=== PATIENT | female | born 1935 | race Caucasian/White ===

== ENCOUNTER 2017-03-06 11:00 | Inpatient (IN) ==
[2017-03-06] MEDS ORDERED: *HR* HYDROmorphone (PF) 1 MG/ML SYRINGE IVP ONE ×2 (11:15→15:28)
[2017-03-06] MEDS ORDERED: *HR* Morphine 2 MG/ML SYRINGE IVP ONE (11:20)
[2017-03-06] MEDS ORDERED: Ondansetron 4 MG/2 ML VIAL IVP ONE (11:20)
--- NOTE | 2017-03-06 11:21 | Emergency Department Note ---
START Narrative - START START: I examined this patient and my medical decision-making was reviewed with the FRONT MAKER/PA/Advanced Practice Nurse/Resident Physician. I agree with the documented findings, disposition and treatment plan as described except to the extent set forth below. Evaluate for right hip fracture.
--- NOTE | 2017-03-06 11:22 | Emergency Department Note ---
Disposition Clinical Impression: Hip fracture Qualifiers: Encounter type: initial encounter Fracture type: closed Laterality: right Qualified Code(s): S72.001A - Fracture of unspecified part of neck of right femur, initial encounter for closed fracture Disposition: Admitted As Inpatient Condition: Good Referrals: Tuyet Glynn QUARTZ CUTTER [Primary Care Provider] - Forms: ED Satisfaction Letter Time of Disposition: 15:34 Fall HPI - General Chief Complaint: ED Fall Stated Complaint: fall Time Seen by Provider: 03/06/17 11:01 Source: patient Mode of arrival: EMS Limitations: physical limitation Nursing Notes Reviewed: Yes Vital Signs Reviewed: Yes - History of Present Illness HPI Narrative: 81 yo with fall, landed on Right hip 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 immediately called EMS and brought to ER. Since fall pt has been unable to move her R LE secondary to sever pain with any movement of leg. Pt admits to baseline SOB from COPD and is on 3L O2 24/7 at home. denies LOC, syncope, lightheaded,dizziness or any symptoms prior to or after fall. Denies CP , numbness/tingling. Pt Subjective Complaint: fall Onset (ago): minute(s) Fall From: standing Fall Witnessed: no Place Fall Occurred: home Loss of Consciousness: none Prolonged Down Time?: no Symptoms Prior to Fall: none Context: tripped/slipped Location of injury: hip Severity: severe Severity scale (1-10): 9 Quality: sharp, aching - Related Data Home Medications Medication Instructions Recorded Confirmed Levalbuterol [Xopenex] 4 puff IH Q4H PRN 07/28/15 03/06/17 Ipratropium/Albuterol Neb [Duoneb] 3 ml IH Q6HR PRN 03/06/17 03/06/17 LORazepam [Ativan] 1 mg PO BID PRN 03/06/17 03/06/17 Lidocaine Patch [Lidoderm 5% patch] 1 each TP DAILY 03/06/17 03/06/17 Omeprazole [PriLOSEC] 20 mg PO DAILY 03/06/17 03/06/17 Previous Rx's Medication Instructions Recorded Budesonide/Formoterol 160/4.5 2 puff IH BIDR #1 hfa.aer.ad 07/31/15 [Symbicort] Allergies Allergy/AdvReac Type Severity Reaction Status Date / Time Penicillins AdvReac Hives Verified 07/28/15 10:51 All systems ED: reviewed and negative except as stated. Constitutional: Denies: fever, chills, weakness, weight change Eyes: Denies: eye pain, eye discharge, vision change ENT ED: Denies: ear pain, throat pain, dental pain, hearing loss, epistaxis, congestion, dysphagia Cardiovascular: Denies: chest pain, palpitations, dyspnea on exertion, edema, syncope Respiratory: Denies: cough, dyspnea, wheezes, hemoptysis, stridor Gastrointestinal: Denies: abdominal pain, nausea, vomiting, diarrhea, constipation, hematemesis, melena, hematochezia Genitourinary: Denies: dysuria, frequency, hematuria, discharge Musculoskeletal: Denies: back pain, neck pain, arthralgia, myalgia Integumentary: Denies: rash, abrasion, lesions Neurological: Denies: headache, weakness, numbness, paresthesias, confusion, abnormal gait, vertigo Psychiatric: Denies: anxiety, depression, suicidal thoughts, homicidal thoughts , auditory hallucinations, visual hallucinations Endocrine: Denies: fatigue Hematological/Lymphatic: Denies: easy bleeding, easy bruising Allergic/Immunologic: Denies: facial swelling, urticaria Fall PMH - Past Medical History Medical history: Reports: COPD Surgical history: Reports: non-contributory, cholecystectomy, other ( rectovaginal fistula surgery, "stomach surgery", TL, finger amputation.) Psychiatric history: Reports: anxiety, depression 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: non-contributory - Social History Smoking Status: Current every day smoker Alcohol use: Reports: none Drug use: Reports: none Physical Exam - General Limitations: no limitations General appearance: alert, in no apparent distress - Head Head exam: atraumatic, normocephalic, normal inspection - Eye Eye exam: Present: normal appearance, PERRL, EOMI - ENT ENT exam: normal exam, normal oropharynx, mucous membranes moist - Neck Neck exam: Present: normal inspection, full ROM, trachea midline - Chest Chest inspection: Present: normal inspection, symmetric chest wall rise - Respiratory Respiratory exam: Present: wheezes (end expiratory b/l), prolonged expiratory phase, other (course breathsounds, diminshed throughout) - Cardiovascular Cardiovascular exam: Present: regular rate, normal rhythm, normal heart sounds, +S1, +S2 - Abdominal Exam Abdominal exam: Present: soft, Non-Tender. Absent: tenderness, distention, guarding, rebound, rigidity - Rectal Exam Rectal exam: Present: deferred - Extremities Exam Extremities exam: Present: tenderness, normal capillary refill. Absent: pedal edema, calf tenderness - Expanded Lower Extremity Exam Hip/Pelvis exam: Present: tenderness, deformity, internal rotation (of R LE). Absent: laceration, ecchymosis Upper leg exam: Present: tenderness, dislocation Knee exam: Present: normal inspection, full ROM Lower leg exam: Present: normal inspection, full ROM. Absent: tenderness, swelling Ankle exam: Present: normal inspection, full ROM Foot/toe exam: Present: normal inspection, full ROM Neurovascular/Tendon exam: Present: normal capillary refill, normal fine/light touch. Absent: pulse deficit, extremity cold to touch, pallor Gait: not tested/not observed - Back Exam Back exam: Present: normal inspection, full ROM. Absent: tenderness - Neurological Exam Neurological exam: Present: alert, oriented X3, CN II-XII intact - Psychiatric Psychiatric exam: Present: normal affect, normal mood - Skin Skin exam: Present: warm, dry, intact, normal color Course - Reevaluation(s) Reevaluation #1: Pt started to become more drowsy and less responsive gave 1 of narcan pt hypotensive 80s/40s started second IV fluid boluses in both IVs CTA chest Time: 18:14 Vital Signs Temperature 98.9 F 03/06/17 11:01 Pulse Rate 94 03/06/17 11:01 Respiratory Rate 24 03/06/17 11:01 Blood Pressure 154/78 03/06/17 11:01 O2 Sat by Pulse Oximetry 95 03/06/17 11:01 Temperature 98.9 F 03/06/17 11:01 Pulse Rate 110 03/06/17 17:30 Respiratory Rate 20 03/06/17 17:30 Blood Pressure 112/59 03/06/17 17:30 O2 Sat by Pulse Oximetry 95 03/06/17 17:30 Oxygen Delivery Oxygen Delivery Simple Mask Fall - Differential Diagnosis Likely: syncope, traumatic injury, arrhythmia - Medical Records Medical records reviewed: Yes I reviewed the patient's medical records. - Lab Data Lab results reviewed: Yes I reviewed the patient's lab results. Result diagrams: 03/06/17 12:22 03/06/17 12:22 Lab Results 03/06/17 03/06/17 03/06/17 Range/Units 11:39 12:22 12:22 WBC (4.3-11.1) K/mcL RBC (3.82-4.97) M/mcL Hgb (11.5-15.4) g/dL Hct (35.3-44.9) % MCV (83.0-100.0) fL MCH (28.0-33.3) pg MCHC (31.6-35.5) g/dL RDW (11.5-14.5) % Plt Count (140-400) K/mcL MPV (9.4-12.4) fL PT 10.7 (9.4-12.1) Seconds INR 1.0 APTT 27.6 (26.0-36.0) Seconds Sodium 140 (136-145) mEq/L Potassium 4.3 (3.5-4.5) mEq/L Chloride 101 (98-109) mEq/L Carbon Dioxide 31 H (19-29) mEq/L BUN 14 (7-20) mg/dL Creatinine 0.55 L (0.57-1.11) mg/dL Est GFR ( Amer) > 60 (> 60) Est GFR (Non-Af Amer) > 60 (> 60) BUN/Creatinine Ratio 25 (6-26) Glucose 113 H (70-99) mg/dL Calculated Osmolality 291 (280-300) Calcium 9.4 (8.6-10.8) mg/dL Urine Color Yellow (Yellow) Urine Clarity Clear (Clear) Urine pH 6.0 (5.0-8.0) pH Units Ur Specific [place] 1.020 (1.010-1.025) Urine Protein Negative (Neg-Trace) mg/dL Urine Glucose (UA) Normal (Normal) mg/dL Urine Ketones Negative (Negative) mg/dL Urine Blood Negative (Negative) Urine Nitrite Negative (Negative) Urine Bilirubin Negative (Negative) Urine Urobilinogen Normal (Normal) mg/dL Ur Leukocyte Esterase Negative (Negative) Ur Culture Indicated? NO (NO) 03/06/17 Range/Units 12:22 WBC 11.8 H (4.3-11.1) K/mcL RBC 4.21 (3.82-4.97) M/mcL Hgb 12.3 (11.5-15.4) g/dL Hct 40.7 (35.3-44.9) % MCV 96.7 (83.0-100.0) fL MCH 29.2 (28.0-33.3) pg MCHC 30.2 L (31.6-35.5) g/dL RDW 14.2 (11.5-14.5) % Plt Count 207 (140-400) K/mcL MPV 11.5 (9.4-12.4) fL PT (9.4-12.1) Seconds INR APTT (26.0-36.0) Seconds Sodium (136-145) mEq/L Potassium (3.5-4.5) mEq/L Chloride (98-109) mEq/L Carbon Dioxide (19-29) mEq/L BUN (7-20) mg/dL Creatinine (0.57-1.11) mg/dL Est GFR ( Amer) (> 60) Est GFR (Non-Af Amer) (> 60) BUN/Creatinine Ratio (6-26) Glucose (70-99) mg/dL Calculated Osmolality (280-300) Calcium (8.6-10.8) mg/dL Urine Color (Yellow) Urine Clarity (Clear) Urine pH (5.0-8.0) pH Units Ur Specific [place] (1.010-1.025) Urine Protein (Neg-Trace) mg/dL Urine Glucose (UA) (Normal) mg/dL Urine Ketones (Negative) mg/dL Urine Blood (Negative) Urine Nitrite (Negative) Urine Bilirubin (Negative) Urine Urobilinogen (Normal) mg/dL Ur Leukocyte Esterase (Negative) Ur Culture Indicated? (NO) - Radiology Data Radiology results reviewed: Yes I reviewed the patient's radiology results. - Core Measures AMI Core Measures Followed: Yes Critical Care Time Critical Care Time: No Attestation Statement - Attestation Attestation: I examined this patient and my medical decision-making was reviewed with the FLAKING ROLL OPERATOR/PA/Advanced Practice Nurse/Resident Physician. I agree with the documented findings, disposition and treatment plan as described except to the extent set forth below.
[2017-03-06 11:56] LABS: Bilirubin,Urine Negative (Negative); Blood,Urine Negative (Negative); Clarity,Urine Clear (Clear); Color,Urine Yellow (Yellow); Glucose,Urine (UA) Normal (Normal); Ketones,Urine Negative (Negative); Leukocyte Esterase,Urine Negative (Negative); Nitrite,Urine Negative (Negative); Protein,Urine Negative (Neg-Trace); Urobilinogen,Urine Normal (Normal)
[2017-03-06 12:34] LABS: Prothrombin Time 10.7 Seconds (9.4-12.1)
[2017-03-06 12:37] LABS: Activated Partial Thrombo Time 27.6 Seconds (26.0-36.0)
[2017-03-06 12:42] LABS: BUN/Creatinine Ratio 25 (6-26); Blood Urea Nitrogen 14 mg/dL (7-20); Calcium 9.4 mg/dL (8.6-10.8); Carbon Dioxide 31 mEq/L (19-29); Chloride 101 mEq/L (98-109); Glucose 113 mg/dL (70-99); Osmolality,Calculated 291 (280-300); Potassium 4.3 mEq/L (3.5-4.5); Sodium 140 mEq/L (136-145); eGFR For African Americans > 60 (> 60); eGFR For Non-African Americans > 60 (> 60)
[2017-03-06 14:39] LABS: Hematocrit 40.7 % (35.3-44.9); Hemoglobin 12.3 g/dL (11.5-15.4); Mean Corpuscular HGB Conc 30.2 g/dL (31.6-35.5); Mean Corpuscular Hemoglobin 29.2 pg (28.0-33.3); Mean Corpuscular Volume 96.7 fL (83.0-100.0); Mean Platelet Volume 11.5 fL (9.4-12.4); Platelet Count 207 K/mcL (140-400); Red Blood Count 4.21 M/mcL (3.82-4.97); Red Cell Distribution Width 14.2 % (11.5-14.5)
[2017-03-06] MEDS ORDERED: Ipratropium/Albuterol Neb 3 ML IH ONE (16:51)
--- NOTE | 2017-03-06 17:27 | Internal Med History&Physical ---
Date of Encounter: 03/06/17 Time of Encounter: 17:23 Assessment and Plan (1) Acute respiratory failure with hypoxemia Current visit: Yes Status: Acute patinet has h/ o COPD at baseline 3 l of o2. after the morphine at ED,, she became unresponsive and de sated requiring 6-7 L of o2 to maintain sats at 90 and hypotensive at 80/40s she was given narcan that improved her mental status, CTA was done to r/o PE/ fat embolus. CTA was negative. patient still requiring 8-10 l of o2, possible hypoventilation from severe pain. code status was discussed with the daughter and she says that patient wishes to be DNR/DNI arrest. needs cautious opioids administration for pain control, will continue duonebs, BP has improved. DVT prophylaxis. (2) Hip fracture Current visit: Yes Status: Acute right hip fracuture s/p fall will call ortho. will need adequate pain control. DVT prophlaxis. Qualifiers: Encounter type: initial encounter Fracture type: closed Laterality: right Qualified Code(s): S72.001A - Fracture of unspecified part of neck of right femur, initial encounter for closed fracture (3) COPD (chronic obstructive pulmonary disease) Current visit: Yes Status: Acute On 3 L of oxygen at home baseline. Reports that there was no worsening of shortness of breath at home, has chronic cough. We will continue the breathing treatments, satting 90% at 6 L, had an episode of respiratory depression after IV narcotics at ED, currently more awake and alert after narcan. titrate o2 to maintain sats 88-92%. she wishes o be DNR- arrest- DNI Qualifiers: COPD type: emphysema Emphysema type: unspecified Qualified Code(s): J43.9 - Emphysema, unspecified (4) DVT prophylaxis Current visit: No Status: Acute (5) Tobacco abuse counseling Current visit: No Status: Acute Internal Medicine - H&P: HPI Chief complaint: fall Admitted From: Home Plans for Post Hospital Care: Home History of present illness: Ms. 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 immediately called EMS and brought to ER. Since fall pt has been unable to move her R LE secondary to severe pain with any movement of leg. Pt admits to baseline SOB from COPD and is on 3L O2 24/7 at home. denies LOC, syncope, lightheaded, dizziness or any symptoms prior to or after fall. Denies CP, numbness/tingling. she was noted to be sating at high 70s on presentation which improved with oxygen. She was given IV Dilaudid with morphine at ED,it was noted that she was unresponsive and had to school superintendent narcan to bring her back, currently she is alert and awake and talking, answering appropriately but appears in mild respiratory distress, sating at 90% on 5-6 l of o2. Past Med Surg Social Fam HX - Past Medical History Medical history: COPD Psychiatric history: anxiety, depression - Past Surgical History Surgical History: non-contributory, cholecystectomy, other (rectovaginal fistula surgery, "stomach surgery", TL, finger amputation.) - Social History Smoking Status: Current every day smoker Smokeless Tobacco Status: No Alcohol use: none Drug use: none Internal Medicine - H&P: Meds Levalbuterol [Xopenex] 4 puff IH Q4H PRN 07/28/15 [History] Budesonide/Formoterol 160/4.5 [Symbicort] 2 puff IH BIDR #1 hfa.aer.ad 07/31/15 [Rx] Ipratropium/Albuterol Neb [Duoneb] 3 ml IH Q6HR PRN 03/06/17 [History] LORazepam [Ativan] 1 mg PO BID PRN 03/06/17 [History] Lidocaine Patch [Lidoderm 5% patch] 1 each TP DAILY 03/06/17 [History] Omeprazole [PriLOSEC] 20 mg PO DAILY 03/06/17 [History] Allergies Penicillins Adverse Reaction (Verified 07/28/15 10:51) Hives All Systems PM: A 10-system review of systems was performed and is negative for pertinent findings except as documented above in the HPI. - Constitutional Vitals: Temp Pulse Resp BP Pulse Ox 98.9 F 118 22 187/87 89 03/06/17 11:01 03/06/17 16:49 03/06/17 17:05 03/06/17 16:49 03/06/17 17:05 General appearance: Present: mild distress, A&O X 3 Exam: Neck supple. Chest bilateral occasional wheezing, decreased breath sounds at the bases. CVS S1-S2, no murmurs rubs or gallops. Abdomen soft, nontender, bowel sounds are present. Extremities- right hip tenderness, decreased ROm, no edema neuro- alert and awake, no focal neuro defecits. Internal Med - H&P Results - Labs CBC & Chem 7: 03/06/17 18:36 03/06/17 12:22 Labs: Short CBC 03/06/17 Range/Units 12:22 WBC 11.8 H (4.3-11.1) K/mcL Hgb 12.3 (11.5-15.4) g/dL Hct 40.7 (35.3-44.9) % Plt Count 207 (140-400) K/mcL BMP 03/06/17 12:22 Sodium 140 Potassium 4.3 Chloride 101 Carbon Dioxide 31 H BUN 14 Creatinine 0.55 L Glucose 113 H Calcium 9.4 Urine 03/06/17 Range/Units 11:39 Urine Color Yellow (Yellow) Urine Clarity Clear (Clear) Urine pH 6.0 (5.0-8.0) pH Units Ur Specific [place] 1.020 (1.010-1.025) Urine Protein Negative (Neg-Trace) mg/dL Urine Glucose (UA) Normal (Normal) mg/dL - Impressions ITS Impressions Hip X-Ray 03/06/17 11:15 IMPRESSION: 1. Normal pelvic alignment with no displaced or angulated fracture. 2. Findings suspicious for a possible nondisplaced right intertrochanteric fracture. If needed, this could be further evaluated with MRI of the right hip. D/ / 03/06/2017 12:23:21 Casey Carvajal MD / zeina Interpreting Provider: Casey Carvajal MD Chest X-Ray 03/06/17 11:20 IMPRESSION: Stable chronic right lung base opacities. No acute abnormality. D/ / 03/06/2017 12:23:54 Casey Carvajal MD / [email or web address] Interpreting Provider: Casey Carvajal MD Femur X-Ray 03/06/17 12:28 IMPRESSION: No acute femoral fracture or dislocation. Mild degenerative changes at the hip joint and knee joint. D/ / Mc Crow MD / Mc Crow MD Interpreting Provider: Mc Crow MD Hip CT 03/06/17 12:28 IMPRESSION: 1. Acute and nondisplaced basicervical right femoral neck fracture with extension into the greater trochanter. D/ / Raheel Fisher MD / Raheel Fisher MD Interpreting Provider: Raheel Fisher MD
[2017-03-06] MEDS ORDERED: Naloxone 0.4 MG/ML INJ IVP PRN (17:32)
[2017-03-06] MEDS ORDERED: *HR* Morphine 2 MG/ML SYRINGE IVP PRN (17:33)
[2017-03-06] MEDS ORDERED: 0.9 % Sodium Chloride 1,000 ML IVC ONE (18:03)
[2017-03-06 18:46] LABS: Hematocrit 40.7 % (35.3-44.9); Hemoglobin 12.1 g/dL (11.5-15.4); Mean Corpuscular HGB Conc 29.7 g/dL (31.6-35.5); Mean Corpuscular Hemoglobin 29.4 pg (28.0-33.3); Mean Corpuscular Volume 98.8 fL (83.0-100.0); Mean Platelet Volume 10.8 fL (9.4-12.4); Platelet Count 165 K/mcL (140-400); Red Blood Count 4.12 M/mcL (3.82-4.97); Red Cell Distribution Width 13.9 % (11.5-14.5)
[2017-03-06] MEDS: Ipratropium/Albuterol Neb 3 ML IH SCH ×2 (19:56→23:37)
[2017-03-06] MEDS: Budesonide/Formoterol 160/4.5 MDI IH SCH (19:56)
[2017-03-06] MEDS ORDERED: Ondansetron 4 MG/2 ML VIAL IVP PRN (20:01)
[2017-03-06] MEDS: *HR* HYDROcodone/Acet 5/325 mg TABLET PO PRN (20:02)
[2017-03-06] MEDS ORDERED: Ondansetron 4 MG/2 ML VIAL ONE (20:12)
[2017-03-06] MEDS ORDERED: *HR* Heparin 5,000 UNIT/ML VIAL IVP ONE (21:31)
[2017-03-06] MEDS ORDERED: *HR* Heparin 5,000 UNIT/ML VIAL IVP PRN ×2 (21:31)
[2017-03-06] MEDS ORDERED: Aspirin 325 MG TABLET PO ONE (21:32)
--- NOTE | 2017-03-06 21:35 | Event Note ---
Date of Encounter: 03/06/17 Time of Encounter: 21:33 noted that the trop elevated to 0.22. this may be demand ischemia from the hypotension and hypoxia at ED after the narcotics. patient denies any chest pain, will do EKG now, will trend tropx3, order ECHO. start heparin drip until ACS has been ruled out. asa 325 stat.
[2017-03-06] MEDS: 0.9 % Sodium Chloride 1,000 ML IVC SCH (22:29)
[2017-03-06] MEDS: Heparin 25,000 UNIT/500 ML D5W 25,000 UNIT/500 ML MLS IVC SCH (22:46)
[2017-03-07 03:44] LABS: Basophils % 0.2 %; Hematocrit 41.3 % (35.3-44.9); Hemoglobin 12.3 g/dL (11.5-15.4); Immature Granulocytes % 0.5 % (0-4); Lymphocytes # 0.5 K/mcL (0.6-4.6); Mean Corpuscular HGB Conc 29.8 g/dL (31.6-35.5); Mean Corpuscular Hemoglobin 29.8 pg (28.0-33.3); Mean Platelet Volume 10.9 fL (9.4-12.4); Monocytes % 5.6 %; Neutrophils # 16.5 K/mcL (1.6-8.9); Platelet Count 209 K/mcL (140-400); Red Blood Count 4.13 M/mcL (3.82-4.97); Red Cell Distribution Width 13.8 % (11.5-14.5); Segmented Neutrophils % 90.7 %
[2017-03-07] MEDS: Ipratropium/Albuterol Neb 3 ML IH SCH ×5 (03:49→20:40)
[2017-03-07 04:00] LABS: BUN/Creatinine Ratio 27 (6-26); Blood Urea Nitrogen 18 mg/dL (7-20); Calcium 8.8 mg/dL (8.6-10.8); Carbon Dioxide 32 mEq/L (19-29); Chloride 101 mEq/L (98-109); Glucose 138 mg/dL (70-99); Osmolality,Calculated 292 (280-300); Potassium 5.1 mEq/L (3.5-4.5); Sodium 139 mEq/L (136-145); eGFR For African Americans > 60 (> 60); eGFR For Non-African Americans > 60 (> 60)
[2017-03-07] MEDS ORDERED: *HR* Enoxaparin 30 MG/0.3 ML SYRINGE SQ SCH (06:00)
[2017-03-07 06:25] LABS: ABG Base Excess 3.7 mEq/L (-2.0 to 3.0); ABG HCO3 35.1 mEQ/L (21-27); ABG Oxygen Saturation 84 % (95-98); ABG PO2 61 mmHg (85-104); ABG TCO2 37.9 mEq/L (20-26)
[2017-03-07 06:29] LABS: Blood Gas FiO2 50 %
[2017-03-07 06:31] LABS: ABG PCO2 92 mmHg (35-45); ABG PH 7.19 pH Units (7.32-7.45)
[2017-03-07] MEDS: Budesonide/Formoterol 160/4.5 MDI IH SCH ×2 (07:31→20:40)
--- NOTE | 2017-03-07 09:10 | Pulmonology Consult Note ---
<Alistair Bajwa - Last Filed: 03/07/17 10:19> Date of Encounter: 03/07/17 Time of Encounter: 08:00 Assessment and Plan (1) Acute respiratory failure with hypoxia and hypercapnia Current Visit: Yes Status: Acute History of COPD with requirement of home oxygen of 3L. Acute failure secondary to decreased respiratory drive with morphine administration. Improved since episode of unresponsiveness in the ED with increased oxygen requirement and narcan administration. CT angio: No PE or acute aortic disease. Interstitial thickening with small bilateral effusions and lower lobe atalectasis. ABG demonstrated: pH 7.19 pCO2 92 pO2 61 HCO3 35.1 this morning. The patient has clinically improved since this morning and is now saturating well on high flow oxygen via nasal cannula. Duo-nebs ZAKIYA Q4hr. Continue home symbicort. Continue oxygen supplementation as needed. (2) COPD (chronic obstructive pulmonary disease) Current Visit: Yes Status: Acute The patient continues to smoke at home. Reports no interest in quitting as she says she is 81 years old and does not believe she will be able to have any improvement at this time in her life. See full plan above. Qualifiers: COPD type: emphysema Emphysema type: unspecified Qualified Code(s): J43.9 - Emphysema, unspecified (3) Elevated troponin Current Visit: Yes Status: Acute Troponins 0.22 > 0.40 > 0.38 Cardiology consulted. The patient is on a heparin drip currently. Will continue heparin drip until seen by cardiology. Denies symptoms of chest pain or palpitations. Continue to trend troponins. No ST elevations on EKG. (4) Tobacco abuse Current Visit: Yes Status: Acute (5) DVT prophylaxis Current Visit: No Status: Acute The patient is currently on a Heparin drip. (6) Hip fracture Current Visit: Yes Status: Acute Right hip. Orthopedics on board for evaluation. Will need to be cautious with pain medications as the patient had an episode of unresponsiveness in the ER when given morphine 4mg. Qualifiers: Encounter type: initial encounter Fracture type: closed Laterality: right Qualified Code(s): S72.001A - Fracture of unspecified part of neck of right femur, initial encounter for closed fracture History of Present Illness Consult date: 03/07/17 Requesting physician: Oliva Harper Reason for consult: COPD Chief complaint: fall, right lower extremity pain History of present illness: This is an 81 yo female with PMH of COPD GERD, and tobacco abuse who presented to the ER immediately after a fall yesterday. She states that she did not trip or get lightheaded causing her to fall. She states that she had one previous fall recently, but did not have any injuries at that time. She reports that the only reason she can think of for her fall is due to some slight weakness in her legs. The patient continues to smoke 5-6 cigarettes per day and requires 3L oxygen at home. She reports she only takes medications for GERD, anxiety, and for her COPD. Upon arrival to the ER she was found to have an elevated troponin of .22, which increased to .40 on redraw. She received a CTA, which did not demonstrate any PE or acute aortic process. She is now oxygenating well on high flow nasal cannula. She denies any skin breakage during her fall. She denies any chest pain, diaphoresis, nausea, or vomiting during the time immediately following her fall. She states she has not had any recent illness. Past Med Surg Social Fam HX - Past Medical History Medical history: COPD Psychiatric history: anxiety, depression - Past Surgical History Surgical History: non-contributory, cholecystectomy, other (rectovaginal fistula surgery, "stomach surgery", TL, finger amputation.) - Social History Smoking Status: Current every day smoker Smokeless Tobacco Status: No Alcohol use: none Drug use: none - Additional Family History Additional family history: Family history noncontributory Medications and Allergies Levalbuterol [Xopenex] 4 puff IH Q4H PRN 07/28/15 [History] Budesonide/Formoterol 160/4.5 [Symbicort] 2 puff IH BIDR #1 hfa.aer.ad 07/31/15 [Rx] Ipratropium/Albuterol Neb [Duoneb] 3 ml IH Q6HR PRN 03/06/17 [History] LORazepam [Ativan] 1 mg PO BID PRN 03/06/17 [History] Lidocaine Patch [Lidoderm 5% patch] 1 each TP DAILY 03/06/17 [History] Omeprazole [PriLOSEC] 20 mg PO DAILY 03/06/17 [History] Allergies Penicillins Adverse Reaction (Verified 09/08/15 10:51) Hives All Systems: A 10-system review of systems was performed and is negative for pertinent findings except as documented above in the HPI. - Constitutional Constitutional: weakness - EENT Nose, mouth and throat: no dizziness - Cardiovascular Cardiovascular: no chest pain - Respiratory Respiratory: dyspnea, no cough, no hemoptysis - Gastrointestinal Gastrointestinal: no nausea, no vomiting - Musculoskeletal Musculoskeletal: muscle weakness (lower extremities), no numbness Physical Examination General appearance: no acute distress Eyes: nonicteric ENT: oropharynx moist Neck: supple Effort: normal Inspection: normal Auscultation: bilateral: diminished breath sounds (at lung bases) Cardiovascular: regular rate and rhythm Gastrointestinal: normoactive bowel sounds, non-tender, non-distended Integumentary: normal (no skin breakage from fall) Extremities: no cyanosis Musculoskeletal: other (pain at right hip with movement) normal mental status, non-focal exam mood appropriate Results - Laboratory Findings CBC and BMP: 03/07/17 03:30 03/07/17 03:30 ABG ABG pH 7.19 pH Units (7.32-7.45) L* 03/07/17 06:14 ABG pCO2 92 mmHg (35-45) H* 03/07/17 06:14 ABG pO2 61 mmHg (85-104) L 03/07/17 06:14 ABG O2 Saturation 84 % (95-98) L 03/07/17 06:14 PT/INR, D-dimer PT 10.7 Seconds (9.4-12.1) 03/06/17 12:22 Abnormal lab findings: Abnormal lab results WBC 18.1 K/mcL (4.3-11.1) H 03/07/17 03:30 MCHC 29.8 g/dL (31.6-35.5) L 03/07/17 03:30 Neutrophils # 16.5 K/mcL (1.6-8.9) H 03/07/17 03:30 Lymphocytes # 0.5 K/mcL (0.6-4.6) L 03/07/17 03:30 APTT 75.8 Seconds (26.0-36.0) H D 03/07/17 03:32 ABG pH 7.19 pH Units (7.32-7.45) L* 03/07/17 06:14 ABG pCO2 92 mmHg (35-45) H* 03/07/17 06:14 ABG pO2 61 mmHg (85-104) L 03/07/17 06:14 ABG HCO3 35.1 mEQ/L (21-27) H 03/07/17 06:14 ABG Total CO2 37.9 mEq/L (20-26) H 03/07/17 06:14 ABG O2 Saturation 84 % (95-98) L 03/07/17 06:14 ABG Base Excess 3.7 mEq/L (-2.0 to 3.0) H 03/07/17 06:14 Potassium 5.1 mEq/L (3.5-4.5) H 03/07/17 03:30 Carbon Dioxide 32 mEq/L (19-29) H 03/07/17 03:30 BUN/Creatinine Ratio 27 (6-26) H 03/07/17 03:30 Glucose 138 mg/dL (70-99) H 03/07/17 03:30 POC Glucose 113 (58-89) H 03/07/17 07:52 Troponin I 0.40 ng/mL (0-0.03) H* 03/07/17 03:30 - Clinical Findings Intake & Output: Intake & Output 03/06/17 03/07/17 03/07/17 23:59 07:59 15:59 Output Total 50 / 50 Balance -50 / -50 Consult Discharge Plan - Plan Referrals: Tuyet Glynn, HAND FLATWORK FINISHER [Primary Care Provider] - - Attending Attestation I examined this patient and my medical decision-making was reviewed with the CERTIFIED PERSONAL CHEF/PA/Advanced Practice Nurse/Resident Physician. I agree with the documented findings, disposition and treatment plan as described except to the extent set forth below. <Ophelia Littlejohn M - Last Filed: 03/07/17 16:05> Date of Encounter: 03/07/17 All Systems: A 10-system review of systems was performed and is negative for pertinent findings except as documented above in the HPI. Physical Examination Vital Signs: Vital Signs, Last 4 Hours Temp Pulse Resp BP Pulse Ox 03/07/17 15:00 136 25 102/56 95 03/07/17 14:00 136 25 111/76 95 03/07/17 13:00 101 25 105/51 95 03/07/17 12:53 98.4 F Results - Laboratory Findings CBC and BMP: 03/07/17 03:30 03/07/17 03:30 ABG ABG pH 7.19 pH Units (7.32-7.45) L* 03/07/17 06:14 ABG pCO2 92 mmHg (35-45) H* 03/07/17 06:14 ABG pO2 61 mmHg (85-104) L 03/07/17 06:14 ABG O2 Saturation 84 % (95-98) L 03/07/17 06:14 PT/INR, D-dimer PT 10.7 Seconds (9.4-12.1) 03/06/17 12:22 Abnormal lab findings: Abnormal lab results WBC 18.1 K/mcL (4.3-11.1) H 03/07/17 03:30 MCHC 29.8 g/dL (31.6-35.5) L 03/07/17 03:30 Neutrophils # 16.5 K/mcL (1.6-8.9) H 03/07/17 03:30 Lymphocytes # 0.5 K/mcL (0.6-4.6) L 03/07/17 03:30 APTT 46.9 Seconds (26.0-36.0) H 03/07/17 09:23 ABG pH 7.19 pH Units (7.32-7.45) L* 03/07/17 06:14 ABG pCO2 92 mmHg (35-45) H* 03/07/17 06:14 ABG pO2 61 mmHg (85-104) L 03/07/17 06:14 ABG HCO3 35.1 mEQ/L (21-27) H 03/07/17 06:14 ABG Total CO2 37.9 mEq/L (20-26) H 03/07/17 06:14 ABG O2 Saturation 84 % (95-98) L 03/07/17 06:14 ABG Base Excess 3.7 mEq/L (-2.0 to 3.0) H 03/07/17 06:14 Potassium 5.1 mEq/L (3.5-4.5) H 03/07/17 03:30 Carbon Dioxide 32 mEq/L (19-29) H 03/07/17 03:30 BUN/Creatinine Ratio 27 (6-26) H 03/07/17 03:30 Glucose 138 mg/dL (70-99) H 03/07/17 03:30 POC Glucose 276 (58-89) H 03/07/17 12:39 Troponin I 0.38 ng/mL (0-0.03) H* 03/07/17 09:23 - Clinical Findings Intake & Output: Intake & Output 03/07/17 03/07/17 03/07/17 07:59 15:59 23:59 Intake Total 472 / 472 Output Total 200 / 200 Balance 272 / 272 - Attending Attestation Patient seen and examined. Labs, radiology, chart personally reviewed. Agree with resident's history and physical, assessment, plan with following comments: DENTAL OFFICER: Patient follows commands, Pulmonary: Acceptable oxygenation and ventilation. Reviewed CT chest and suspect there might be aspiration and also evidence of chronic lung disease to continue weaning off oxygen and use BiPAP when necessary with evidence of hypercapnia. Bronchodilators Cardiovascular: stable, I doubt ACS and cardiology consulted. GI: Nutrition per dietary and GI prophylaxis per routine Heme: DVT prophylaxis per routine ID: monitor for now. Renal; urine out put and renal funtion reviewed Endorcine: blood glucose is monitored Lines: all lines checked and no evidence of infections Skin: skin care to prevent pressure ulcers per nursing routine care Overall prognosis is poor and orthopedic consultation. Monitoring in ICU for next 24 hours..
[2017-03-07] MEDS: *HR* LORazepam 1 MG TABLET PO PRN (09:12)
--- NOTE | 2017-03-07 11:05 | Cardiology Consult Note ---
Date of Encounter: 03/07/17 Time of Encounter: 10:30 Assessment and Plan (1) Elevated troponin Current Visit: Yes Status: Acute Peak troponin 0.40 in the setting of fall, acute hypoxia, and hypotension. Likely secondary to demand ischemia. Patient denies chest pain or discomfort, no ischemic ECG changes noted. Echocardiogram ordered. Recommend conservative medical management; patient is DNRCC-DNI, desires no aggressive measures. Cardiac rehab not indicated. Continue heparin gtt for 24 hours. Will start daily asa. Will start low dose statin. Consider addition of betablocker by discharge or in the outpatient setting; BP borderline today. (2) Acute respiratory failure with hypoxia and hypercapnia Current Visit: Yes Status: Acute Pulmonology following. Hx of COPD on home oxygen therapy at home. Episode of acute respiratory failure secondary to opiate administation in ED-- patient was hypoxic and hypotensive after IV morphine. Responded to increased oxygen and narcan administration. (3) Hip fracture Current Visit: Yes Status: Acute Orthopedics consulted. Qualifiers: Encounter type: initial encounter Fracture type: closed Laterality: right Qualified Code(s): S72.001A - Fracture of unspecified part of neck of right femur, initial encounter for closed fracture Discussion w patient/family: The assessment and plan as outlined above was discussed with the patient and/or family members who expressed understanding and agreement. All questions were answered. Thank you for involving us in the care of your patient. Please call with any questions. The patient will be discussed and reviewed with Dr. Mansfield; changes to be made accordingly. History of Present Illness Consult date: 03/07/17 Requesting physician: Oliva Harper Consult reason: Elevated troponin Chief complaint: Fall History of present illness: Ms. Long is a 81 year old female with PMH significant for GERD, anxiety, and COPD (on home oxygen) who presented to the ED after a fall resulting in right hip fracture yesterday. Reports fall occurred after her legs became weak and "gave out." Reports fall weeks earlier without injury. Reports multiple falls in the past several months. She continues to smoke cigarettes. Upon arrival to ED she was given IV morphine, patient became unresponsive, hypoxic, and hypotensive; responded with IV narcan and increased oxygen supplementation. She was admitted to the ICU for further evaluation. Upon exam, she is pain free. Denies chest pain or discomfort leading up to event yesterday. No history of CAD or OH. Past Med Surg Social Fam HX - Past Medical History Attestation: Yes The following information was validated with the patient. Source: patient, old records reviewed Medical history: COPD, GERD Psychiatric history: anxiety, depression - Past Surgical History Surgical History: cholecystectomy, other (rectovaginal fistula surgery, " stomach surgery", TL, finger amputation.) - Social History Smoking Status: Current every day smoker Smokeless Tobacco Status: No Alcohol use: none Drug use: none Medications and Allergies Levalbuterol [Xopenex] 4 puff IH Q4H PRN 07/28/15 [History] Budesonide/Formoterol 160/4.5 [Symbicort] 2 puff IH BIDR #1 hfa.aer.ad 07/31/15 [Rx] Ipratropium/Albuterol Neb [Duoneb] 3 ml IH Q6HR PRN 03/06/17 [History] LORazepam [Ativan] 1 mg PO BID PRN 03/06/17 [History] Lidocaine Patch [Lidoderm 5% patch] 1 each TP DAILY 03/06/17 [History] Omeprazole [PriLOSEC] 20 mg PO DAILY 03/06/17 [History] Allergies Penicillins Adverse Reaction (Verified 07/28/15 10:51) Hives All Systems Review: A 10-system review of systems was performed and is negative for pertinent findings except as documented above in the HPI. - Cardiovascular Cardiovascular: as per HPI Physical Examination Vital Signs, Last 4 Hours Pulse Resp BP Pulse Ox 03/07/17 11:00 93 22 100/53 69 03/07/17 10:00 94 22 103/54 69 03/07/17 09:00 97 22 106/52 69 General: Conversant, No Apparent Distress HEENT: Atraumatic, Normocephaly, Mucus Membranes Moist Cardiac: Reg Rate and Rhythm, Normal S1 and S2 Lungs: Normal Breath Sounds Neuro: Alert and responsive Abdomen: Soft Skin: No rashes noted on visualized skin Musculoskeletal: No Chest Wall Tenderness Extremities: No Edema, Normal Pulses Results 03/07/17 03:30 03/07/17 03:30 Lab Results 03/07/17 03/07/17 09:23 09:23 APTT 46.9 H Troponin I 0.38 H* Active Medications Acetaminophen/Hydrocodone Bitart ([place] 5-325 Mg) 1 tab PO Q4HR PRN PRN Reason: Moderate Pain (4-6) Stop: 09/05/17 17:33 Last Admin: 03/06/17 20:02 Dose: 1 tab Albuterol/Ipratropium (Duoneb) 3 ml IH [id number] ZAKIYA PRN Reason: Protocol Stop: 09/05/17 20:01 Last Admin: 03/07/17 11:11 Dose: 3 ml Aspirin (Aspirin) 81 mg PO DAILY ZAKIYA Stop: 09/06/17 11:16 Atorvastatin Calcium (Lipitor) 20 mg PO HS ZAKIYA Stop: 09/06/17 21:01 Budesonide/Formoterol Fumarate (Symbicort) 2 puff IH BIDR ZAKIYA PRN Reason: Protocol Stop: 09/05/17 22:01 Last Admin: 03/07/17 07:31 Dose: 2 puff Heparin Sodium (Porcine) (Heparin) 2,700 unit 60 unit/kg (2700 unit) IVP Q6HR PRN PRN Reason: SEE COMMENTS Stop: 09/05/17 21:32 Heparin Sodium (Porcine) (Heparin) 1,300 unit 30 unit/kg (1300 unit) IVP Q6H PRN PRN Reason: SEE COMMENTS Stop: 09/05/17 21:32 Sodium Chloride (0.9 % Sodium Chloride) 1,000 mls @ 100 mls/hr IVC .Q10H ZAKIYA Stop: 09/05/17 17:46 Last Admin: 03/06/17 22:29 Dose: 100 mls/hr Heparin Sodium/Dextrose (Heparin 25,000 Unit/500 Ml D5w) 25,000 unit in 500 mls @ 10.728 mls/hr IVC .Q24H ZAKIYA; 12 UNIT/KG/HR PRN Reason: Protocol Stop: 09/05/17 21:46 Last Titration: 03/07/17 10:54 Dose: 14.2 unit/kg/hr, 12.7 mls/hr Lorazepam (Ativan) 1 mg PO BID PRN PRN Reason: Anxiety Stop: 09/05/17 17:36 Last Admin: 03/07/17 09:12 Dose: 1 mg Morphine Sulfate (Morphine Sulfate) 2 mg IVP Q4HR PRN PRN Reason: Severe Pain Stop: 09/05/17 20:01 Naloxone HCl (Narcan) 0.4 mg IVP Q2MIN PRN PRN Reason: Opioid Reversal Stop: 09/05/17 17:33 Omeprazole (Prilosec) 20 mg PO DAILY ZAKIYA PRN Reason: Protocol Stop: 09/06/17 09:01 Last Admin: 03/07/17 09:08 Dose: 20 mg Ondansetron HCl (Zofran) 4 mg IVP Q6HR PRN; Protocol PRN Reason: Nausea Stop: 09/05/17 20:02 Last Admin: 03/06/17 21:02 Dose: 4 mg - Imaging and Cardiology Echo: pending Other Results: 12 hour tele: avg HR=94 SR. No significant event noted. - EKG Interpretation EKG results cardiology: personally reviewed Consult Discharge Plan - Plan Referrals: Tuyet Glynn, COMPOSITE BOND WORKER [Primary Care Provider] -
[2017-03-07] MEDS: Aspirin 81 MG TAB.CHEW PO SCH (13:39)
[2017-03-07] MEDS: *HR* HYDROcodone/Acet 5/325 mg TABLET PO PRN (14:25)
--- NOTE | 2017-03-07 16:46 | Electrocardiograph Report ---
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
--- NOTE | 2017-03-07 20:13 | Orthopedic Consult Note ---
Date of Encounter: 03/07/17 Time of Encounter: 17:00 Assessment and Plan (1) Hip fracture Current Visit: Yes Status: Acute I did discuss the diagnosis with the patient in great detail. She has a nondisplaced basicervical right femoral neck fracture. Treatment options were discussed and the recommendation was for internal fixation for stabilization of the right hip for pain control and to facilitate nursing care. The risks discussed included but were not limited to bleeding, infection, anesthesia risks , damage to neurovascular structures, tendons, ligaments, and bone. Also discussed was the risk of continued symptoms and possible need for further procedures. I did discuss the reasonable foreseeable postoperative course with the patient. The patient does have significant medical comorbidities, especially COPD requiring oxygen and the patient is aware of the risks of surgery and anesthesia related to this which could include . The patient is aware of the risks but does wish to proceed for pain control purposes and to help facilitate nursing care and allow her to sit up in a chair. We will proceed to the operating room once medically cleared and stable. Qualifiers: Encounter type: initial encounter Fracture type: closed Laterality: right Qualified Code(s): S72.001A - Fracture of unspecified part of neck of right femur, initial encounter for closed fracture History of Present Illness HPI: Ms. Long is a 81 year old female with a history of COPD on home oxygen. She lives herself independently and typically walks unassisted but does use a walker at times. She sustained a fall yesterday which was non-syncopal in nature. She landed directly on her right side and presented to the hospital with acute right proximal thigh and groin pain. She was admitted to the hospitalist after being found to have a nondisplaced basicervical femoral neck fracture. Orthopedics was consult to assist in the evaluation and management of this patient. She was transferred to the intensive care unit for careful monitoring due to decreased O2 saturation and sinus tachycardia. Both pulmonary and cardiology are following. On my evaluation the patient complains of isolated pain to the proximal lateral right thigh which radiates into the groin. She denies any headaches, neck pain, chest pain, abdominal pain, bilateral upper extremity pain, and left lower extremity pain. She denies any loss of consciousness. She denies any numbness, tingling, or any other associated signs or symptoms. Pain is worsened with movement of the right lower extremity. No other modifying factors. Past Med Surg Social Fam HX - Past Medical History Medical history: COPD, GERD Psychiatric history: anxiety, depression - Past Surgical History Surgical History: cholecystectomy, other (rectovaginal fistula surgery, " stomach surgery", TL, finger amputation.) - Social History Smoking Status: Current every day smoker Smokeless Tobacco Status: No Alcohol use: none Drug use: none Medications and Allergies Levalbuterol [Xopenex] 4 puff IH Q4H PRN 07/28/15 [History] Budesonide/Formoterol 160/4.5 [Symbicort] 2 puff IH BIDR #1 [email or web address] 07/31/15 [Rx] Ipratropium/Albuterol Neb [Duoneb] 3 ml IH Q6HR PRN 03/06/17 [History] LORazepam [Ativan] 1 mg PO BID PRN 03/06/17 [History] Lidocaine Patch [Lidoderm 5% patch] 1 each TP DAILY 03/06/17 [History] Omeprazole [PriLOSEC] 20 mg PO DAILY 03/06/17 [History] Allergies Penicillins Adverse Reaction (Verified 07/28/15 10:51) Hives All Systems Reviewed: Constitutional and musculoskeletal systems were reviewed and are negative unless otherwise stated in history of present illness. Physical Exam - Constitutional Vitals: Temp Pulse Resp BP Pulse Ox 98.1 F 139 25 97/57 95 03/07/17 17:28 03/07/17 18:00 03/07/17 18:00 03/07/17 18:00 03/07/17 18:00 Constitutional -Vitals reviewed -The patient is well developed and well nourished. -Mood is pleasant. -The patient is well groomed. Psychiatric -The patient is fully alert and oriented x 3. Respiratory: -Respiratory effort normal Abdomen: -Soft abdomen -Non tender -Non distended: Left upper extremity: -No deformities. The overlying skin is intact. No obvious signs of acute trauma. -No tenderness to palpation throughout. -No significant pain with passive motion of the shoulder, elbow, wrist, and fingers within the limits of the bed. -Able to make an "OK" sign, cross the index and long fingers, and extend the thumb. -Sensation grossly intact to light touch throughout the median, radial, and ulnar distributions. -Radial pulse is present; Fingers have good capillary refill. Right upper extremity: -No deformities. The overlying skin is intact. No obvious signs of acute trauma. -No tenderness to palpation throughout. -No significant pain with passive motion of the shoulder, elbow, wrist, and fingers within the limits of the bed. -Able to make an "OK" sign, cross the index and long fingers, and extend the thumb. -Sensation grossly intact to light touch throughout the median, radial, and ulnar distributions. -Radial pulse is present; Fingers have good capillary refill. Left lower extremity: -No deformities. The overlying skin is intact. No obvious signs of acute trauma. -No tenderness to palpation throughout. -No pain with passive motion of the hip, knee, ankle, and toes within the limits of the bed. -No pain with axial loading of the thigh. -Able to dorsiflex and plantarflex the ankle and toes. -Sensation is grossly intact to light touch throughout the sural, saphenous, superficial peroneal, and deep peroneal distributions. -Toes have good capillary refill. Right lower extremity: -No deformities. The overlying skin is intact. No obvious signs of acute trauma. -There is tenderness to palpation on the proximal lateral thigh and groin region. No other tenderness to palpation throughout. -Significant groin pain with any log rolling of the hip. -Able to dorsiflex and plantarflex the ankle and toes. -Sensation is grossly intact to light touch throughout the sural, saphenous, superficial peroneal, and deep peroneal distributions. -Toes have good capillary refill. Diagnostic Imaging: I did personally review and interpret x-rays of the right hip and femur as well as a CT scan of the pelvis which demonstrates a nondisplaced basicervical right femoral neck fracture. CT angiogram of the chest did not demonstrated PE. Results - Labs Result Diagrams: 03/07/17 03:30 03/07/17 03:30 Labs: Abnormal lab results WBC 18.1 K/mcL (4.3-11.1) H 03/07/17 03:30 MCHC 29.8 g/dL (31.6-35.5) L 03/07/17 03:30 Neutrophils # 16.5 K/mcL (1.6-8.9) H 03/07/17 03:30 Lymphocytes # 0.5 K/mcL (0.6-4.6) L 03/07/17 03:30 APTT 48.7 Seconds (26.0-36.0) H 03/07/17 18:09 ABG pH 7.19 pH Units (7.32-7.45) L* 03/07/17 06:14 ABG pCO2 92 mmHg (35-45) H* 03/07/17 06:14 ABG pO2 61 mmHg (85-104) L 03/07/17 06:14 ABG HCO3 35.1 mEQ/L (21-27) H 03/07/17 06:14 ABG Total CO2 37.9 mEq/L (20-26) H 03/07/17 06:14 ABG O2 Saturation 84 % (95-98) L 03/07/17 06:14 ABG Base Excess 3.7 mEq/L (-2.0 to 3.0) H 03/07/17 06:14 Potassium 5.1 mEq/L (3.5-4.5) H 03/07/17 03:30 Carbon Dioxide 32 mEq/L (19-29) H 03/07/17 03:30 BUN/Creatinine Ratio 27 (6-26) H 03/07/17 03:30 Glucose 138 mg/dL (70-99) H 03/07/17 03:30 POC Glucose 98 (58-89) H 03/07/17 16:38 Troponin I 0.38 ng/mL (0-0.03) H* 03/07/17 09:23 All other labs normal. Consult Discharge Plan - Plan Referrals: Tuyet Glynn, GATE ATTENDANT [Primary Care Provider] -
[2017-03-08] MEDS: Ipratropium/Albuterol Neb 3 ML IH SCH ×6 (00:21→20:36)
[2017-03-08] MEDS: *HR* LORazepam 1 MG TABLET PO PRN (00:22)
[2017-03-08] MEDS: *HR* HYDROcodone/Acet 5/325 mg TABLET PO PRN ×2 (00:23→07:48)
[2017-03-08] MEDS: Heparin 25,000 UNIT/500 ML D5W 25,000 UNIT/500 ML MLS IVC SCH (07:43)
[2017-03-08] MEDS: 0.9 % Sodium Chloride 1,000 ML IVC SCH (07:44)
[2017-03-08] MEDS: Aspirin 81 MG TAB.CHEW PO SCH (07:48)
[2017-03-08] MEDS: *HR* Heparin 5,000 UNIT/ML VIAL SQ SCH ×2 (07:49→16:21)
[2017-03-08] MEDS: Budesonide/Formoterol 160/4.5 MDI IH SCH ×2 (08:17→20:36)
[2017-03-08 10:14] LABS: Basophils % 0.2 %; Eosinophils # 0.1 K/mcL (0.0-0.6); Eosinophils % 0.9 %; Hematocrit 36.4 % (35.3-44.9); Hemoglobin 11.3 g/dL (11.5-15.4); Immature Granulocytes % 0.4 % (0-4); Lymphocytes # 0.9 K/mcL (0.6-4.6); Lymphocytes % 8.7 %; Mean Corpuscular Hemoglobin 30.1 pg (28.0-33.3); Mean Corpuscular Volume 97.1 fL (83.0-100.0); Mean Platelet Volume 10.9 fL (9.4-12.4); Monocytes # 1.3 K/mcL (0.0-1.3); Monocytes % 12.6 %; Neutrophils # 7.9 K/mcL (1.6-8.9); Platelet Count 193 K/mcL (140-400); Red Blood Count 3.75 M/mcL (3.82-4.97); Red Cell Distribution Width 13.6 % (11.5-14.5); Segmented Neutrophils % 77.2 %
[2017-03-08 10:28] LABS: BUN/Creatinine Ratio 20 (6-26); Blood Urea Nitrogen 11 mg/dL (7-20); Calcium 9.1 mg/dL (8.6-10.8); Carbon Dioxide 39 mEq/L (19-29); Chloride 97 mEq/L (98-109); Glucose 128 mg/dL (70-99); Osmolality,Calculated 287 (280-300); Potassium 4.5 mEq/L (3.5-4.5); Sodium 138 mEq/L (136-145); eGFR For African Americans > 60 (> 60); eGFR For Non-African Americans > 60 (> 60)
[2017-03-08] MEDS ORDERED: *HR* HYDROcodone/Acet 5/325 mg TABLET PO PRN (10:28)
--- NOTE | 2017-03-08 10:38 | Orthopedics Progress Note ---
Date of Encounter: 03/08/17 Time of Encounter: 10:36 - Assessment and Plan (1) Hip fracture Current Visit: Yes Status: Acute Qualifiers: Encounter type: initial encounter Fracture type: closed Laterality: right Qualified Code(s): S72.001A - Fracture of unspecified part of neck of right femur, initial encounter for closed fracture Subjective Interval history: S: Resting in bed. Pain isolated to the right hip/groin. Reasonably controlled. O: Afebrile, Vitals stable Right thigh/groin tenderness, and pain with motion. No deformities. Can flex and extend the ankle and toes. Foot is sensate and well perfused A: Right basicervical femoral neck fracture P: Plan for operative stabilization later today of the right hip. Spoke with the intensive care physician who says from his standpoint she is medically stable for surgery. Awaiting cardiology's read of the ECHO. Objective Vital signs: Vital Signs Temp Pulse Resp BP Pulse Ox 03/08/17 10:00 100 20 130/61 95 03/08/17 09:00 101 22 122/62 99 03/08/17 08:18 16 98 03/08/17 08:00 98.4 F 102 20 117/60 94 03/08/17 07:00 98 20 125/57 98 03/08/17 06:00 101 21 118/59 98 03/08/17 05:30 105 22 118/61 98 03/08/17 04:39 98.2 F 03/08/17 04:23 22 120/64 98 03/08/17 04:00 104 22 120/63 96 03/08/17 03:00 105 22 122/63 97 03/08/17 02:00 104 23 122/62 97 03/08/17 01:00 99 20 118/59 97 03/08/17 00:35 98.3 F 03/08/17 00:21 16 115/62 90 03/08/17 00:20 131 16 115/62 96 03/07/17 23:12 132 18 111/66 97 03/07/17 22:00 132 18 115/61 97 03/07/17 21:00 131 21 114/62 94 03/07/17 20:43 96 03/07/17 20:41 16 108/60 96 03/07/17 20:22 98.2 F 03/07/17 20:20 131 19 102/63 98 03/07/17 19:00 133 16 108/60 94 03/07/17 18:00 139 25 97/57 95 03/07/17 17:28 98.1 F 03/07/17 17:00 138 25 113/59 95 03/07/17 16:00 137 25 102/61 95 03/07/17 15:49 20 94 03/07/17 15:00 136 25 102/56 95 03/07/17 14:00 136 25 111/76 95 03/07/17 13:00 101 25 105/51 95 03/07/17 12:53 98.4 F 03/07/17 11:15 25 100/53 95 03/07/17 11:05 93 03/07/17 11:00 93 22 100/53 69 Intake and Output 03/07/17 03/08/17 03/08/17 23:59 07:59 15:59 Intake Total 141 / 141 0 / 0 Output Total 175 / 175 275 / 275 50 / 50 Balance -34 / -34 -275 / -275 -50 / -50 Intake: IV Fluids 141 / 141 Heparin 25,000 UNIT/500 141 / 141 ML D5W 25,000 unit In 500 ml @ 12 UNIT/KG/HR 10. 728 mls/hr IVC .Q24H [facility] Rx#:[id number] Oral 0 / 0 Output: Catheter 175 / 175 275 / 275 50 / 50 Other: Weight 46.992 kg Blood Glucose* 116 120 Patient Weight 03/08/17 23:59 Weight 46.992 kg - Labs CBC & BMP: 03/08/17 10:07 03/08/17 10:07 Labs: Abnormal lab results RBC 3.75 M/mcL (3.82-4.97) L 03/08/17 10:07 Hgb 11.3 g/dL (11.5-15.4) L 03/08/17 10:07 MCHC 31.0 g/dL (31.6-35.5) L 03/08/17 10:07 APTT 48.7 Seconds (26.0-36.0) H 03/07/17 18:09 ABG pH 7.19 pH Units (7.32-7.45) L* 03/07/17 06:14 ABG pCO2 92 mmHg (35-45) H* 03/07/17 06:14 ABG pO2 61 mmHg (85-104) L 03/07/17 06:14 ABG HCO3 35.1 mEQ/L (21-27) H 03/07/17 06:14 ABG Total CO2 37.9 mEq/L (20-26) H 03/07/17 06:14 ABG O2 Saturation 84 % (95-98) L 03/07/17 06:14 ABG Base Excess 3.7 mEq/L (-2.0 to 3.0) H 03/07/17 06:14 Chloride 97 mEq/L (98-109) L 03/08/17 10:07 Carbon Dioxide 39 mEq/L (19-29) H 03/08/17 10:07 Creatinine 0.54 mg/dL (0.57-1.11) L 03/08/17 10:07 Glucose 128 mg/dL (70-99) H 03/08/17 10:07 POC Glucose 120 (58-89) H 03/08/17 07:11 Troponin I 0.38 ng/mL (0-0.03) H* 03/07/17 09:23 Consult Discharge Plan - Plan Referrals: Tuyet Glynn, ANALYSIS SPECIALIST [Primary Care Provider] -
--- NOTE | 2017-03-08 11:17 | Cardiology Progress Note ---
Date of Encounter: 03/08/17 Time of Encounter: 11:00 Assessment and Plan (1) Pre-operative cardiovascular examination Current Visit: Yes Status: Acute Troponin elevation in the setting of fall/hip fx, hypoxia/hypotension in the ED. No ischemic ECG changes, chest pain free. She denies hx of CAD or PR. Fairly sedentary at home, recent multiple falls. Plan for right hip surgery today. EF normal, normal wall motion on TTE per Dr. Mansfield. Patient is a moderate risk surgical candidate from cardiology standpoint. She is aware of risk. Recommend pulmonary input as patient is on Bipap. Recommend asa and betablocker in the kathy-operative setting. (2) Elevated troponin Current Visit: Yes Status: Acute Peak troponin 0.40 in the setting of fall, acute hypoxia, and hypotension. Likely secondary to demand ischemia. Patient denies chest pain or discomfort, no ischemic ECG changes noted. Reviewed TTE with Dr. Mansfield--prelim read: EF normal, normal wall motion. Recommend conservative medical management; patient is DNRCC-DNI, desires no aggressive measures. Cardiac rehab not indicated. Heparin gtt infused x24 hours. Continue asa, statin, and betablocker. (3) Acute respiratory failure with hypoxia and hypercapnia Current Visit: Yes Status: Acute Pulmonology following. Hx of COPD on home oxygen therapy at home. Episode of acute respiratory failure secondary to opiate administation in ED-- patient was hypoxic and hypotensive after IV morphine. Responded to increased oxygen and narcan administration. On Bipap--pleural effusion noted on TTE, defer mgmt to Pulm. Discussion w patient/family: The assessment and plan as outlined above was discussed with the patient and/or family members who expressed understanding and agreement. All questions were answered. Thank you for involving us in the care of your patient. Please call with any questions. The patient was discussed and reviewed with Dr. Mansfield; Cardiology will sign-off, please call with questions. Subjective Principal diagnosis: Right hip fx Interval history: Seen and examined. HR 100's SR. Currently on Bipap--appears more lethargic today. Objective Vital Signs, Last 4 Hours Temp Pulse Resp BP Pulse Ox 03/08/17 10:00 100 20 130/61 95 03/08/17 09:00 101 22 122/62 99 03/08/17 08:18 16 98 03/08/17 08:00 98.4 F 102 20 117/60 94 General: Conversant, Other (on Bipap) HEENT: Atraumatic, Normocephaly Cardiac: Reg Rate and Rhythm (tachycardiac) Lungs: Other (Wheezes throughout, bibasilar diminished L>R) Neuro: Alert and responsive Abdomen: Soft Skin: No rashes noted on visualized skin Musculoskeletal: No Chest Wall Tenderness Extremities: No Edema, Normal Pulses Results 03/08/17 10:07 03/08/17 10:07 Lab Results 03/07/17 03/08/17 03/08/17 18:09 10:07 10:07 WBC 10.2 Hgb 11.3 L Hct 36.4 Plt Count 193 APTT 48.7 H Sodium 138 Potassium 4.5 Chloride 97 L Carbon Dioxide 39 H BUN 11 Creatinine 0.54 L Glucose 128 H Calcium 9.1 Active Medications Acetaminophen/Hydrocodone Bitart (Cecil 5-325 Mg) 1 tab PO Q4HR PRN PRN Reason: Moderate to Severe Pain (4-10) Stop: 09/05/17 17:33 Albuterol/Ipratropium (Duoneb) 3 ml IH [id number] ZAKIYA PRN Reason: Protocol Stop: 09/05/17 20:01 Last Admin: 03/08/17 08:17 Dose: 3 ml Aspirin (Aspirin) 81 mg PO DAILY [facility] Stop: 09/06/17 11:16 Last Admin: 03/08/17 07:48 Dose: 81 mg Atorvastatin Calcium (Lipitor) 20 mg PO HS [facility] Stop: 09/06/17 21:01 Last Admin: 03/07/17 20:13 Dose: 20 mg Budesonide/Formoterol Fumarate (Symbicort) 2 puff IH BIDR [facility] PRN Reason: Protocol Stop: 09/05/17 22:01 Last Admin: 03/08/17 08:17 Dose: 2 puff Heparin Sodium (Porcine) (Heparin) 5,000 unit SQ Q12HCO [facility] Stop: 09/12/17 08:01 Last Admin: 03/08/17 07:49 Dose: 5,000 unit Lorazepam (Ativan) 1 mg PO BID PRN PRN Reason: Anxiety Stop: 09/05/17 17:36 Last Admin: 03/08/17 00:22 Dose: 1 mg Metoprolol Tartrate (Lopressor) 25 mg PO BID [facility] Stop: 09/07/17 10:31 Last Admin: 03/08/17 10:41 Dose: 25 mg Naloxone HCl (Narcan) 0.4 mg IVP Q2MIN PRN PRN Reason: Opioid Reversal Stop: 09/05/17 17:33 Omeprazole (Prilosec) 20 mg PO DAILY ZAKIYA PRN Reason: Protocol Stop: 09/06/17 09:01 Last Admin: 03/08/17 07:48 Dose: 20 mg Ondansetron HCl (Zofran) 4 mg IVP Q6HR PRN; Protocol PRN Reason: Nausea Stop: 09/05/17 20:02 Last Admin: 03/06/17 21:02 Dose: 4 mg ITS Impressions Hip X-Ray 03/06/17 11:15 IMPRESSION: 1. Normal pelvic alignment with no displaced or angulated fracture. 2. Findings suspicious for a possible nondisplaced right intertrochanteric fracture. If needed, this could be further evaluated with MRI of the right hip. D/ : / 03/06/2017 12:23:21 Casey Carvajal MD / [email or web address] Chest X-Ray 03/06/17 11:20 IMPRESSION: Stable chronic right lung base opacities. No acute abnormality. D/ / 03/06/2017 12:23:54 Casey Carvajal MD / [facility] Femur X-Ray 03/06/17 12:28 IMPRESSION: No acute femoral fracture or dislocation. Mild degenerative changes at the hip joint and knee joint. D/ / Mc Crow MD / Mc Crow MD Hip CT 03/06/17 12:28 IMPRESSION: 1. Acute and nondisplaced basicervical right femoral neck fracture with extension into the greater trochanter. D/ / Raheel Fisher MD / Raheel Fisher MD Chest CTA 03/06/17 17:41 IMPRESSION: No evidence of pulmonary embolism or acute aortic disease. Bilateral small effusions and lower lobe atelectatic changes worse on the right compared to the left. Interstitial thickening suggestive of possible early interstitial edema. D/ / 03/06/2017 18:37:56 Day Vazquez MD / kirsten - Imaging and Cardiology Echo: pending, report reviewed Other Results: 12 hour tele: avg YF=133 ST - EKG Interpretation EKG results cardiology: personally reviewed Consult Discharge Plan - Plan Referrals: Tuyet Glynn, [employer]ARD WORKER [Primary Care Provider] -
--- NOTE | 2017-03-08 11:40 | ECHO - Doppler Report ---
Echocardiogram Name: Tania Long Date of Study: 03/07/2017 Date: 1935 Ht: 60.0 in Medical Record#: [id number] Age: 81 Wt: 100.0 lb Gender: Female BSA: 1.39 Order #: [id number] Location: [facility] Room #: IC11 Reading Physician: Kodi Horner DO, MARY JUAREZ [employer] Control Systems Engineer: Kayla Cartwright RDCS Ordering Physician: Aracelis Harper MD Primary Physician: Tuyet Glynn CNP Indications: NSTEMI Impressions: Sinus tachycardia. LVEF >70%. Normal LV chamber size, wall thickness and hyperdynamic function. Mild left ventricular diastolic dysfunction. Mildly dilated right ventricle with normal appearing function. Mild tricuspid regurgitation. Severe pulmonary hypertension. Estimated RVSP is > 70 mmHg. Pleural effusion noted. Left Ventricular Wall Motion: Rest Echo Findings The apex, apical inferior, mid inferior, basal inferior, apical anterior, mid anterior, basal anterior, apical septal, mid inferior septal, basal inferior septal, apical lateral, mid anterior lateral, basal anterior lateral, mid anterior septal, mid inferior lateral, basal anterior septal and basal inferior lateral andujar were hyperkinetic. Findings: Study Quality * Technically sub-optimal due to clinical status. ECG Findings * Sinus tachycardia. Left Ventricle * LVEF >70%. * Normal LV chamber size, wall thickness and hyperdynamic function. * Mild left ventricular diastolic dysfunction. Right Ventricle * Mildly dilated right ventricle with normal appearing function. Left Atrium * Normal left atrial size. Right Atrium * Normal right atrial size. Interatrial Septum * Interatrial septum not well evaluated. Aortic Valve * Mildly sclerotic aortic valve leaflets. * Trileaflet aortic valve. * No aortic regurgitation. * No aortic stenosis. Mitral Valve * Normal mitral valve structure and function. * No mitral stenosis. * No mitral regurgitation. Tricuspid Valve * Normal tricuspid valve structure. * Mild tricuspid regurgitation. * Severe pulmonary hypertension. * Estimated RVSP is > 70 mmHg. * Estimated RA pressure is 10 mmHg. Pulmonic Valve * Pulmonic valve not well visualized. * No pulmonic regurgitation. Aorta * Normally sized aortic root. Pericardium * The pericardium appears normal. IVC * The IVC is not dilated. * < 50% respiratory change. Pulmonary Artery * Normal visualized portions of the main pulmonary artery. Pleural Effusion * Pleural effusion noted. History Measurements: BP: 113/ 59 2D Normal Values RVIDd: 2.74 cm <2.7 cm IVSd: .72 cm 0.6 - 1.0 cm LVIDd: 3.98 cm 3.7 - 5.6 cm LVPWd: .88 cm 0.6 - 1.1 cm LVIDs: 2.80 cm 1.5 - 3.6 cm AO: 2.60 cm < 4.0 cm LA: 2.90 cm 2.0 - 4.0cm %FS: 29.60 cm >25 % LA volume: 17 Mitral Valve Peak E:.73 m/sec Peak A:1.01 m/sec E/A Ratio:0.7 Peak E' Lat Thony:12.7 cm/s Peak E' Med Thony:13.1 cm/s E/E' Lat Ratio:5.8 E/E' Med Ratio:5.6 Tricuspid Valve TV Regurg Peak Grad: 41.00mmHg TV Regurg Peak Thony: 3.19m/sec Updated by Kodi Horner DO, FACTeja, MARY, AMGALY on 03/08/2017 11:33:32 AM electronically signed on 03/08/2017 11:35:48 AM with status of Final Wall Motion Howe: 1=Normal, 2=Hypokinesis, 3=Akinesis, 4=Dyskinesis, 5=Aneurysmal, 6=Hyperkinetic, X=Not Visualized (Blank)=Missing
--- NOTE | 2017-03-08 13:23 | Pulmonology Progress Note ---
<Alistair aBjwa - Last Filed: 03/08/17 13:20> Date of Encounter: 03/08/17 Time of Encounter: 08:50 Assessment and Plan (1) Acute respiratory failure with hypoxia and hypercapnia Current Visit: Yes Status: Acute History of COPD with requirement of home oxygen of 3L. Acute failure secondary to decreased respiratory drive with morphine administration. Improved since yesterday. CT angio: No PE or acute aortic disease. Interstitial thickening with small bilateral effusions and lower lobe atalectasis. The patient is saturating well on high flow oxygen via nasal cannula. This is intermittent as she is a chronic CO2 retainer. Duo-nebs ZAKIYA Q4hr. Continue home symbicort. Continue oxygen supplementation as needed. If the patient returns to the ICU intubated will continue to follow. If she is able to be extubated after her surgery will plan for transfer to stepdown tomorrow. (2) COPD (chronic obstructive pulmonary disease) Current Visit: Yes Status: Acute See above. Qualifiers: COPD type: emphysema Emphysema type: unspecified Qualified Code(s): J43.9 - Emphysema, unspecified (3) Elevated troponin Current Visit: Yes Status: Acute Cardiology following. Heparin drip has been discontinued. Planned for orhtopedic surgery this afternoon. Will continue aspirin, statin, and betablocker at this time. The patient does not wish to have aggressive measures. Trending down. (4) DVT prophylaxis Current Visit: No Status: Acute On heparin SQ (5) Hip fracture Current Visit: Yes Status: Acute Planned add on for repair this afternoon per orthopedics. Qualifiers: Encounter type: initial encounter Fracture type: closed Laterality: right Qualified Code(s): S72.001A - Fracture of unspecified part of neck of right femur, initial encounter for closed fracture Subjective Principal diagnosis: Right hip fx Interval history: The patient was seen and examined. Oxygenating well on high flow nasal cannula. Planned surgery for right him fracture as add on this afternoon. Objective PUL Vital signs: Last Vital Signs Temp 98.4 F 03/08/17 08:00 Pulse 98 03/08/17 12:00 Resp 20 03/08/17 12:00 BP 121/64 03/08/17 12:00 Pulse Ox 98 03/08/17 12:00 General appearance: no acute distress Eyes: nonicteric ENT: oropharynx moist Auscultation: bilateral: diminished breath sounds (at lung bases (mild)) Cardiovascular: regular rate and rhythm Gastrointestinal: normoactive bowel sounds, soft, non-tender, non-distended Integumentary: normal Extremities: no cyanosis normal mental status mood appropriate Results - Laboratory Findings CBC and BMP: 03/08/17 10:07 03/08/17 10:07 ABG ABG pH 7.19 pH Units (7.32-7.45) L* 03/07/17 06:14 ABG pCO2 92 mmHg (35-45) H* 03/07/17 06:14 ABG pO2 61 mmHg (85-104) L 03/07/17 06:14 ABG O2 Saturation 84 % (95-98) L 03/07/17 06:14 PT/INR, D-dimer PT 10.7 Seconds (9.4-12.1) 03/06/17 12:22 Abnormal lab findings: Abnormal lab results RBC 3.75 M/mcL (3.82-4.97) L 03/08/17 10:07 Hgb 11.3 g/dL (11.5-15.4) L 03/08/17 10:07 MCHC 31.0 g/dL (31.6-35.5) L 03/08/17 10:07 APTT 48.7 Seconds (26.0-36.0) H 03/07/17 18:09 ABG pH 7.19 pH Units (7.32-7.45) L* 03/07/17 06:14 ABG pCO2 92 mmHg (35-45) H* 03/07/17 06:14 ABG pO2 61 mmHg (85-104) L 03/07/17 06:14 ABG HCO3 35.1 mEQ/L (21-27) H 03/07/17 06:14 ABG Total CO2 37.9 mEq/L (20-26) H 03/07/17 06:14 ABG O2 Saturation 84 % (95-98) L 03/07/17 06:14 ABG Base Excess 3.7 mEq/L (-2.0 to 3.0) H 03/07/17 06:14 Chloride 97 mEq/L (98-109) L 03/08/17 10:07 Carbon Dioxide 39 mEq/L (19-29) H 03/08/17 10:07 Creatinine 0.54 mg/dL (0.57-1.11) L 03/08/17 10:07 Glucose 128 mg/dL (70-99) H 03/08/17 10:07 POC Glucose 126 (58-89) H 03/08/17 12:54 Troponin I 0.38 ng/mL (0-0.03) H* 03/07/17 09:23 - Clinical Findings Intake & Output: Intake & Output 03/07/17 03/08/17 03/08/17 23:59 07:59 15:59 Intake Total 141 / 141 0 / 0 Output Total 175 / 175 275 / 275 50 / 50 Balance -34 / -34 -275 / -275 -50 / -50 Weight 46.992 kg Consult Discharge Plan - Plan Referrals: Tuyet Glynn, [employer] [Primary Care Provider] - - Attending Attestation I examined this patient and my medical decision-making was reviewed with the PRECISION FILER HAND/PA/Advanced Practice Nurse/Resident Physician. I agree with the documented findings, disposition and treatment plan as described except to the extent set forth below. <Ophelia Littlejohn M - Last Filed: 03/08/17 16:55> Date of Encounter: 03/08/17 Objective PUL Vital signs: Last Vital Signs Temp 96.9 F L 03/08/17 12:00 Pulse 90 03/08/17 16:00 Resp 20 03/08/17 16:00 BP 109/65 03/08/17 16:00 Pulse Ox 95 03/08/17 16:00 Results - Laboratory Findings CBC and BMP: 03/08/17 10:07 03/08/17 10:07 ABG ABG pH 7.19 pH Units (7.32-7.45) L* 03/07/17 06:14 ABG pCO2 92 mmHg (35-45) H* 03/07/17 06:14 ABG pO2 61 mmHg (85-104) L 03/07/17 06:14 ABG O2 Saturation 84 % (95-98) L 03/07/17 06:14 PT/INR, D-dimer PT 10.7 Seconds (9.4-12.1) 03/06/17 12:22 Abnormal lab findings: Abnormal lab results RBC 3.75 M/mcL (3.82-4.97) L 03/08/17 10:07 Hgb 11.3 g/dL (11.5-15.4) L 03/08/17 10:07 MCHC 31.0 g/dL (31.6-35.5) L 03/08/17 10:07 APTT 48.7 Seconds (26.0-36.0) H 03/07/17 18:09 ABG pH 7.19 pH Units (7.32-7.45) L* 03/07/17 06:14 ABG pCO2 92 mmHg (35-45) H* 03/07/17 06:14 ABG pO2 61 mmHg (85-104) L 03/07/17 06:14 ABG HCO3 35.1 mEQ/L (21-27) H 03/07/17 06:14 ABG Total CO2 37.9 mEq/L (20-26) H 03/07/17 06:14 ABG O2 Saturation 84 % (95-98) L 03/07/17 06:14 ABG Base Excess 3.7 mEq/L (-2.0 to 3.0) H 03/07/17 06:14 Chloride 97 mEq/L (98-109) L 03/08/17 10:07 Carbon Dioxide 39 mEq/L (19-29) H 03/08/17 10:07 Creatinine 0.54 mg/dL (0.57-1.11) L 03/08/17 10:07 Glucose 128 mg/dL (70-99) H 03/08/17 10:07 POC Glucose 126 (58-89) H 03/08/17 12:54 Troponin I 0.38 ng/mL (0-0.03) H* 03/07/17 09:23 - Clinical Findings Intake & Output: Intake & Output 03/08/17 03/08/17 03/08/17 07:59 15:59 23:59 Intake Total 0 / 0 0 / 0 Output Total 275 / 275 225 / 225 Balance -275 / -275 -225 / -225 0 / 0 Weight 46.992 kg - Attending Attestation Patient seen and examined. Labs, radiology, chart personally reviewed. 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 BiPAP when necessary Cardiovascular: Cardiology for preop clearance GI: Nutrition per dietary and GI prophylaxis per routine Heme: DVT prophylaxis per routine Discussed with orthopedic surgeon and patient is from pulmonary standpoint since benefit outweighed the risks and did remain stable after surgery than she can be transferred out of ICU.
--- NOTE | 2017-03-08 15:10 | Anesthesia Evaluation PreOp ---
<Benji Sevilla - Last Filed: 03/08/17 15:16> Date of Encounter: 03/08/17 Time of Encounter: 15:08 - Past History Planned Operation: ORIF Right Hip Pulmonary History: Smoker, COPD (O2 depent 3L O2 NC), Other (Acute resp. failure (due to ER Pain meds)with hypoxemia and hypercarbia. 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) Other Medical History: Other (Elevated troponin (not cardiac related per cardiology)) : No Alcohol Use: none Drug use: none Medications and Allergies Levalbuterol [Xopenex] 4 puff IH Q4H PRN 07/28/15 [History] Budesonide/Formoterol 160/4.5 [Symbicort] 2 puff IH BIDR #1 hfa.aer.[id number] 07/31/15 [Rx] Ipratropium/Albuterol Neb [Duoneb] 3 ml IH Q6HR PRN 03/06/17 [History] LORazepam [Ativan] 1 mg PO BID PRN 03/06/17 [History] Lidocaine Patch [Lidoderm 5% patch] 1 each TP DAILY 03/06/17 [History] Omeprazole [PriLOSEC] 20 mg PO DAILY 03/06/17 [History] Allergies Penicillins Adverse Reaction (Verified 07/28/15 10:51) Hives - Meds/Allergy Pre-op Review Medications Reviewed: Yes Allergies Reviewed: Yes Beta Blockers on Current Med List: No Anesthesia Results - Labs 03/08/17 10:07 03/08/17 10:07 Echo 03/07/2017 EF-70% No No MS Mild TR Severe Pulm HTN - Imaging EKG: image reviewed (SR) Chest x-ray: report reviewed (Jayant. small effusions and lower lobe atelectasis, interstitial thickening poss early interstitial edema) Anesthesia Exam O2 Sat Weight 46.992 kg O2 Sat by Pulse Oximetry 98 O2 Sat by Pulse Oximetry 96 O2 Sat by Pulse Oximetry 98 O2 Sat by Pulse Oximetry 94 O2 Sat by Pulse Oximetry 93 O2 Sat by Pulse Oximetry 95 O2 Sat by Pulse Oximetry 99 O2 Sat by Pulse Oximetry 98 O2 Sat by Pulse Oximetry 94 O2 Sat by Pulse Oximetry 98 O2 Sat by Pulse Oximetry 98 O2 Sat by Pulse Oximetry 98 O2 Sat by Pulse Oximetry 98 O2 Sat by Pulse Oximetry 96 O2 Sat by Pulse Oximetry 97 O2 Sat by Pulse Oximetry 97 O2 Sat by Pulse Oximetry 97 O2 Sat by Pulse Oximetry 90 O2 Sat by Pulse Oximetry 96 O2 Sat by Pulse Oximetry 97 O2 Sat by Pulse Oximetry 97 O2 Sat by Pulse Oximetry 94 O2 Sat by Pulse Oximetry 96 O2 Sat by Pulse Oximetry 96 O2 Sat by Pulse Oximetry 98 O2 Sat by Pulse Oximetry 94 O2 Sat by Pulse Oximetry 95 O2 Sat by Pulse Oximetry 95 O2 Sat by Pulse Oximetry 95 O2 Sat by Pulse Oximetry 94 Vital Signs Temp Pulse Resp BP Pulse Ox 98.9 F 94 24 154/78 95 03/06/17 11:01 03/06/17 11:01 03/06/17 11:01 03/06/17 11:01 03/06/17 11:01 Vital Signs/O2 Sat, Most Current Temp Pulse Resp BP Pulse Ox 96.9 F L 84 24 115/61 98 03/08/17 12:00 03/08/17 14:00 03/08/17 14:00 03/08/17 14:00 03/08/17 14:00 <Aleena Morillo - Last Filed: 03/08/17 17:14> Date of Encounter: 03/08/17 - Past History Cardiac History: Denies any Significant Hx, HTN (maitnained on Lopressor), Hyperlipidemia (maintained on Atorvastatin), Other (Troponin bump to 0.38 this hospitalization - likely demand ischemia by Cardiology. 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: Denies Any Significant HX, Other (Anxiety/Depression maintained on Lorazepam) Other Medical History: GERD (maintained on Prilosec) Anesthesia History: No Prior Anesthetic Complications, Past Anesthesia (Heike, REctovaginal fistural surgery, "stomach surgery", Tubal Ligation, Finger amputation,) - Meds/Allergy Pre-op Review Medications Reviewed: Yes Allergies Reviewed: Yes Beta Blockers on Current Med List: No Anesthesia Results - Labs 03/08/17 10:07 03/08/17 10:07 Vital Signs Laboratory Results WBC 10.2 K/mcL (4.3-11.1) 03/08/17 10:07 RBC 3.75 M/mcL (3.82-4.97) L 03/08/17 10:07 Hgb 11.3 g/dL (11.5-15.4) L 03/08/17 10:07 Hct 36.4 % (35.3-44.9) 03/08/17 10:07 MCV 97.1 fL (83.0-100.0) 03/08/17 10:07 MCH 30.1 pg (28.0-33.3) 03/08/17 10:07 MCHC 31.0 g/dL (31.6-35.5) L 03/08/17 10:07 RDW 13.6 % (11.5-14.5) 03/08/17 10:07 Plt Count 193 K/mcL (140-400) 03/08/17 10:07 MPV 10.9 fL (9.4-12.4) 03/08/17 10:07 Immature Gran % 0.4 % (0-4) 03/08/17 10:07 Seg Neutrophils % 77.2 % 03/08/17 10:07 Lymphocytes % 8.7 % 03/08/17 10:07 Monocytes % 12.6 % 03/08/17 10:07 Eosinophils % 0.9 % 03/08/17 10:07 Basophils % 0.2 % 03/08/17 10:07 Neutrophils # 7.9 K/mcL (1.6-8.9) 03/08/17 10:07 Lymphocytes # 0.9 K/mcL (0.6-4.6) 03/08/17 10:07 Monocytes # 1.3 K/mcL (0.0-1.3) 03/08/17 10:07 Eosinophils # 0.1 K/mcL (0.0-0.6) 03/08/17 10:07 Basophils # 0.0 K/mcL (0.0-0.2) 03/08/17 10:07 PT 10.7 Seconds (9.4-12.1) 03/06/17 12:22 INR 1.0 03/06/17 12:22 APTT 48.7 Seconds (26.0-36.0) H 03/07/17 18:09 ABG pH 7.19 pH Units (7.32-7.45) L* 03/07/17 06:14 ABG pCO2 92 mmHg (35-45) H* 03/07/17 06:14 ABG pO2 61 mmHg (85-104) L 03/07/17 06:14 ABG HCO3 35.1 mEQ/L (21-27) H 03/07/17 06:14 ABG Total CO2 37.9 mEq/L (20-26) H 03/07/17 06:14 ABG O2 Saturation 84 % (95-98) L 03/07/17 06:14 ABG Base Excess 3.7 mEq/L (-2.0 to 3.0) H 03/07/17 06:14 Blood Gas Modality BIPAP 03/07/17 06:14 Inspired O2 50 % 03/07/17 06:14 Sodium 138 mEq/L (136-145) 03/08/17 10:07 Potassium 4.5 mEq/L (3.5-4.5) 03/08/17 10:07 Chloride 97 mEq/L (98-109) L 03/08/17 10:07 Carbon Dioxide 39 mEq/L (19-29) H 03/08/17 10:07 BUN 11 mg/dL (7-20) 03/08/17 10:07 Creatinine 0.54 mg/dL (0.57-1.11) L 03/08/17 10:07 Est GFR ( Amer) > 60 (> 60) 03/08/17 10:07 Est GFR (Non-Af Amer) > 60 (> 60) 03/08/17 10:07 BUN/Creatinine Ratio 20 (6-26) 03/08/17 10:07 Glucose 128 mg/dL (70-99) H 03/08/17 10:07 POC Glucose 126 (58-89) H 03/08/17 12:54 Calculated Osmolality 287 (280-300) 03/08/17 10:07 Calcium 9.1 mg/dL (8.6-10.8) 03/08/17 10:07 Troponin I 0.38 ng/mL (0-0.03) H* 03/07/17 09:23 Urine Color Yellow (Yellow) 03/06/17 11:39 Urine Clarity Clear (Clear) 03/06/17 11:39 Urine pH 6.0 pH Units (5.0-8.0) 03/06/17 11:39 Ur Specific [place] 1.020 (1.010-1.025) 03/06/17 11:39 Urine Protein Negative mg/dL (Neg-Trace) 03/06/17 11:39 Urine Glucose (UA) Normal mg/dL (Normal) 03/06/17 11:39 Urine Ketones Negative mg/dL (Negative) 03/06/17 11:39 Urine Blood Negative (Negative) 03/06/17 11:39 Urine Nitrite Negative (Negative) 03/06/17 11:39 Urine Bilirubin Negative (Negative) 03/06/17 11:39 Urine Urobilinogen Normal mg/dL (Normal) 03/06/17 11:39 Ur Leukocyte Esterase Negative (Negative) 03/06/17 11:39 Ur Culture Indicated? NO (NO) 03/06/17 11:39 Blood Type A POSITIVE 03/06/17 18:36 Antibody Screen NEGATIVE 03/06/17 18:36 Impressions Hip X-Ray 03/06/17 11:15 IMPRESSION: 1. Normal pelvic alignment with no displaced or angulated fracture. 2. Findings suspicious for a possible nondisplaced right intertrochanteric fracture. If needed, this could be further evaluated with MRI of the right hip. D/ / 03/06/2017 12:23:21 [facility]al MD [facility] Interpreting Provider: Casey Carvajal MD Chest X-Ray 03/06/17 11:20 IMPRESSION: Stable chronic right lung base opacities. No acute abnormality. D/ / 03/06/2017 12:23:54 [facility] Provider: Casey Carvajal MD Femur X-Ray 03/06/17 12:28 IMPRESSION: No acute femoral fracture or dislocation. Mild degenerative changes at the hip joint and knee joint. D/ / Mc Crow MD / Mc Crow MD Interpreting Provider: Mc Crow MD Hip CT 03/06/17 12:28 IMPRESSION: 1. Acute and nondisplaced basicervical right femoral neck fracture with extension into the greater trochanter. D/ / Raheel Fisher MD / Raheel Fisher MD Interpreting Provider: Raheel Fisher MD Chest CTA 03/06/17 17:41 IMPRESSION: No evidence of pulmonary embolism or acute aortic disease. Bilateral small effusions and lower lobe atelectatic changes worse on the right compared to the left. Interstitial thickening suggestive of possible early interstitial edema. 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 MERCHANDISING SPECIALIST Motor: Normal RUE, Normal LUE, Normal LLE, Normal Face, Deficit RLE RETAIL MERCHANDISING SPECIALIST Sensory: Normal: RUE, LUE, LLE, Face, Deficit: RLE - Cardiac Rhythm: Regular Murmur: None - Pulmonary Breath Sounds: bilateral Clear Respiratory Effort: Symmetrical Anesthesia Assess/Plan ASA Score: 4 (COPD, Anxiety/Depression, Demand Ischemia Troponin bump this hospitalization) Modified [place] Scale for Level of Consciousness: Cooperative, oriented, and tranquil Anesthetic Plan: General Monitoring Plan: Standard Monitors Recovery Plan: ICU Anes Supervising Prov Stmt: Pt seen/evaluated, R&B Discussed, questions answered and consent obtained. Brandon Edwards MD
[2017-03-08] MEDS ORDERED: 0.9 % Sodium Chloride 250 ML ONE (15:50)
[2017-03-08] MEDS ORDERED: Bupivacaine/EPI 1:200k 0.5%PF 10 ML VIAL ONE (16:10)
[2017-03-08] MEDS ORDERED: *HR* Midazolam HCl 2 MG/2 ML VIAL ONE (17:06)
[2017-03-08] MEDS ORDERED: *HR* FentaNYL (PF) 100 MCG/2 ML VIAL ONE (17:06)
[2017-03-08] MEDS ORDERED: *HR* Propofol 200 MG/20 ML VIAL IVP ONE (17:07)
[2017-03-08] MEDS ORDERED: Clindamycin 900 MG/50 ML 900 MG/50 ML IV.SOLN IVPB ONE (17:31)
[2017-03-08] MEDS ORDERED: Ondansetron 4 MG/2 ML VIAL IVP ONE (17:48)
[2017-03-08] MEDS ORDERED: *HR* Morphine 2 MG/ML SYRINGE IVP PRN (17:48)
[2017-03-08] MEDS ORDERED: *HR* HYDROmorphone (PF) 1 MG/ML SYRINGE IVP PRN (17:48)
--- NOTE | 2017-03-08 21:11 | Orthopedic Operative Note ---
Date of procedure: 03/08/17 Procedure: OPERATIVE REPORT DATE OF PROCEDURE: 03/08/2017 SURGEON: Khris Bragg MD BOOK AUTHOR(S): There were no assistants PREOPERATIVE DIAGNOSIS: Right basicervical femoral neck fracture with extension into the greater trochanter POSTOPERATIVE DIAGNOSIS: Right basicervical femoral neck fracture with extension into the greater trochanter PROCEDURE: Internal fixation of the right hip ANESTHESIA: Gen. anesthesia PREOPERATIVE ANTIBIOTICS: 900 mg of clindamycin ESTIMATED BLOOD LOSS: 50 milliliters IMPLANTS: Khadar Gamma 3 nail measuring [id number], 125 degree with a 90 mm lag screw PREOPERATIVE NOTE AND INDICATIONS: Tania is an 81-year-old female who sustained a right hip fracture. I did discuss treatment options with the patient thoroughly, and she did wish to have internal fixation for pain control reasons and to help facilitate nursing care. The patient does have significant medical comorbidities, most notably chronic obstructive pulmonary disease. She is aware of the significant risk of anesthesia as a result. The fracture anatomy was a nondisplaced basocervical fracture though there were nondisplaced fracture lines extending into the greater trochanter. A sliding hip screw was initially considered for this fracture, however due to concerns about fracture lines extending into the greater trochanter the decision was made for intramedullary fixation. In order to try and reduce operative time the decision was made for a short medullary nail. The patient is aware of the reported increased risks of fracture at the tip of the stem. The surgical plan was discussed with the patient. The risks, benefits, alternatives, and potential complications of this procedure were discussed with the patient including injury to veins, arteries, nerves, tendons, ligaments, and bone. Also discussed were the risks of infection, bleeding, pain, blood clots, the possible need for a blood transfusion, the possible need for further procedures, heart attack, stroke, and . Additional risks discussed with the patient include the risk of hardware failure, nail cut out, and fracture about the prosthesis. All of this was explained in simple terms, and the patient verbalized understanding and wished to proceed. Consent was given to proceed with surgery. PROCEDURE: The patient was seen in the preoperative holding area where the identify and the consent were confirmed. The right thigh was marked. Final questions were answered. The patient was brought back to the operating room. A huddle was performed with the patient and all vital surgical team members confirming patient identity, the correct procedure, and the correct operative site. And general anesthesia was administered. The patient was placed on the fracture table and the nonoperative leg was flexed and abducted out of the way. The right lower extremity was placed in the foot garcia without any traction. Fluoroscopy confirmed good views of the hip. The right thigh was prepped and draped in the usual sterile fashion. A surgical time out was performed immediately preceding the incision with all personnel in the operating room to confirm patient identity, the correct operative site and extremity, correct radiographic studies, availability of appropriate surgical equipment, and agreement on the planned procedure. A longitudinal incision was made superior to the greater trochanter and dissection proceeded through the gluteal fascia. The guidewire was inserted into the greater trochanter and the opening reamer used. The definitive nail was loaded and inserted into the proximal femur. Using the triple sleeve as a guide a second incision was made and dissection proceeded through the deep fascia. The guidewire was placed into the femoral head in center center position. The length was measured and the femoral neck and head was reamed. The definitive lag screw was placed and locked. Using the jig the distal interlocking screw was placed through a third incision. X-rays confirmed good position of the hardware and fracture. The wounds were copiously irrigated and the deep layer closed with interrupted 0 Vicryl stitches and the skin was closed with 3-0 Vicryl, and abdifatah. A sterile dressing was placed and the patient was taken off the fracture table and placed onto her bed. The instrument, sponge, and needle counts were correct after wound closure. POST OPERATIVE PLAN: Weight Bearing: WBAT bilateral lower extremities DVT Prophylaxis: Currently on heparin, but can transition to aspirin 325 mg PO BID when okay with this hospitalist. Also bilateral knee high RONALDO hose and calf SCDs Activity: As tolerated with assistance. Wound Care: Daily dressing changes on postoperative day 2. Pain Control: [place] and morphine. Perioperative antibiotic prophylaxis: 2 doses of clindamycin 900 mg Social work for discharge planning Follow Up: 2 weeks
[2017-03-08] MEDS ORDERED: FentaNYL (PF) 1,000 MCG in 0.9 % Sodium Chloride 80 ML IVC SCH (21:30)
[2017-03-08] MEDS ORDERED: Dexmedetomidine HCl 400 MCG/100 ML MLS IVC SCH (21:30)
[2017-03-08 21:55] LABS: ABG Base Excess 10.7 mEq/L (-2.0 to 3.0); ABG HCO3 39.7 mEQ/L (21-27); ABG Oxygen Saturation 87 % (95-98); ABG PH 7.32 pH Units (7.32-7.45); ABG PO2 57 mmHg (85-104); ABG TCO2 42.1 mEq/L (20-26)
[2017-03-08 21:56] LABS: Blood Gas FiO2 50 %
[2017-03-08 21:57] LABS: ABG PCO2 77 mmHg (35-45)
[2017-03-08] MEDS: Clindamycin 900 MG/50 ML 900 MG/50 ML IV.SOLN IVPB SCH (23:19)
[2017-03-09] MEDS: Ipratropium/Albuterol Neb 3 ML IH SCH ×7 (00:21→23:45)
[2017-03-09 03:33] LABS: Hematocrit 33.5 % (35.3-44.9); Hemoglobin 10.3 g/dL (11.5-15.4)
[2017-03-09 03:45] LABS: BUN/Creatinine Ratio 26 (6-26); Blood Urea Nitrogen 17 mg/dL (7-20); Calcium 8.9 mg/dL (8.6-10.8); Carbon Dioxide 32 mEq/L (19-29); Chloride 99 mEq/L (98-109); Glucose 139 mg/dL (70-99); Osmolality,Calculated 292 (280-300); Potassium 4.5 mEq/L (3.5-4.5); Sodium 139 mEq/L (136-145); eGFR For African Americans > 60 (> 60); eGFR For Non-African Americans > 60 (> 60)
[2017-03-09] MEDS: *HR* Heparin 5,000 UNIT/ML VIAL SQ SCH (05:20)
[2017-03-09] MEDS: Budesonide/Formoterol 160/4.5 MDI IH SCH ×2 (07:42→20:03)
--- NOTE | 2017-03-09 07:45 | Orthopedics Progress Note ---
Date of Encounter: 03/09/17 Time of Encounter: 07:41 - Assessment and Plan (1) Hip fracture Current Visit: Yes Status: Acute Qualifiers: Encounter type: initial encounter Fracture type: closed Laterality: right Qualified Code(s): S72.001A - Fracture of unspecified part of neck of right femur, initial encounter for closed fracture Subjective Principal diagnosis: Right hip fx Interval history: S: Resting in bed, remains intubated communicative. Pain improved to the right hip compared to preoperatively. O: Afebrile VSS Right thigh dressing is clean, dry, and intact. Minimal pain with passive motion of the right hip. She grossly flexes and extends the foot. Foot is sensate and well perfused. A: Post op day 1 after internal fixation of the right hip. P: Discussed with the ICU physician. He anticipates extubation and even possibly transfer to step down later today. I did discuss DVT prophylaxis and recommended aspirin 325 PO BID due to her fall risk. He agreed and will make the change. Continue Knee high TEDs and SCDs. PT/OT when able. WBAT B/L LE. Black out later today if okay with the hospitalist. Dressing change tomorrow. Objective Vital signs: Vital Signs Temp Pulse Resp BP Pulse Ox 03/09/17 07:38 92 03/09/17 07:35 97.6 F 03/09/17 06:16 11 93/61 94 03/09/17 06:15 81 14 93/61 94 03/09/17 05:20 76 14 82/49 95 03/09/17 05:15 97.5 F L 03/09/17 04:38 78 29 89/55 94 03/09/17 04:10 14 89/55 93 03/09/17 03:30 84 14 115/63 93 03/09/17 02:14 14 74/53 95 03/09/17 02:00 78 14 74/53 95 03/09/17 01:00 79 14 73/52 95 03/09/17 00:38 97.0 F L 03/09/17 00:22 14 79/54 98 03/09/17 00:06 121 14 79/54 99 03/08/17 23:10 119 14 82/59 99 03/08/17 22:33 121 14 81/55 99 03/08/17 22:21 14 77/54 100 03/08/17 21:11 97.2 F L 03/08/17 21:00 124 15 104/67 88 03/08/17 20:37 18 109/63 96 03/08/17 20:35 122 18 109/63 95 03/08/17 20:05 124 14 92/56 94 03/08/17 19:50 99.4 F 126 14 93/57 94 03/08/17 19:39 127 03/08/17 19:35 128 14 97/65 94 03/08/17 19:20 99.2 F 131 14 104/58 96 03/08/17 19:15 133 14 114/64 96 03/08/17 19:13 28 98 03/08/17 19:10 132 14 102/72 95 03/08/17 19:05 131 14 107/74 93 03/08/17 19:00 99.0 F 132 16 97/57 90 03/08/17 16:00 90 20 109/65 95 03/08/17 15:54 16 99 03/08/17 15:00 88 16 114/65 96 03/08/17 14:00 84 24 115/61 98 03/08/17 13:00 95 18 116/79 96 03/08/17 12:00 96.9 F L 98 20 121/64 98 03/08/17 11:41 16 94 03/08/17 11:00 102 20 113/63 93 03/08/17 10:00 100 20 130/61 95 03/08/17 09:00 101 22 122/62 99 03/08/17 08:18 16 98 03/08/17 08:00 98.4 F 102 20 117/60 94 Intake and Output 03/08/17 03/08/17 03/09/17 15:59 23:59 07:59 Intake Total 0 / 0 10.3 / 10.3 62.6 / 62.6 Output Total 225 / 225 200 / 200 75 / 75 Balance -225 / -225 -189.7 / -189.7 -12.4 / -12.4 Intake: IV Fluids 10.3 / 10.3 62.6 / 62.6 PRECEDEX 400 mcg In 100 10.3 / 10.3 ml @ 2 MCG/KG/HR 23.496 mls/hr IVC .Q4H16M ZAKIYA Rx #:[id number] FentaNYL (PF) 1,000 MCG 12.6 / 12.6 In 0.9 % Sodium Chloride 80 ML @ 25 MCG/HR 2.5 mls /hr IVC PROTOCOL ZAKIYA Rx#: [id number] Cleocin 900 MG/50 ML 900 50 / 50 mg In 50 ml @ 50 mls/hr IVPB Q8HR ZAKIYA Rx#: [id number] Oral 0 / 0 0 / 0 Output: Estimated Blood Loss 50 / 50 Catheter 225 / 225 150 / 150 75 / 75 Other: Weight 46.6 kg Blood Glucose* 126 148 141 Patient Weight 03/09/17 23:59 Weight 46.6 kg - Labs CBC & BMP: 03/09/17 03:22 03/09/17 03:26 Labs: Abnormal lab results RBC 3.75 M/mcL (3.82-4.97) L 03/08/17 10:07 Hgb 10.3 g/dL (11.5-15.4) L 03/09/17 03:22 Hct 33.5 % (35.3-44.9) L 03/09/17 03:22 MCHC 31.0 g/dL (31.6-35.5) L 03/08/17 10:07 APTT 48.7 Seconds (26.0-36.0) H 03/07/17 18:09 ABG pCO2 77 mmHg (35-45) H* 03/08/17 21:28 ABG pO2 57 mmHg (85-104) L 03/08/17 21:28 ABG HCO3 39.7 mEQ/L (21-27) H 03/08/17 21:28 ABG Total CO2 42.1 mEq/L (20-26) H 03/08/17 21:28 ABG O2 Saturation 87 % (95-98) L 03/08/17 21:28 ABG Base Excess 10.7 mEq/L (-2.0 to 3.0) H 03/08/17 21:28 Carbon Dioxide 32 mEq/L (19-29) H 03/09/17 03:26 Glucose 139 mg/dL (70-99) H 03/09/17 03:26 POC Glucose 141 (58-89) H 03/09/17 07:11 Troponin I 0.38 ng/mL (0-0.03) H* 03/07/17 09:23 - VTE Documentation of Mechanical Device: Intermittent pneumatic compression device Consult Discharge Plan - Plan Referrals: Tuyet Glynn, SOFTWARE APPLICATIONS DESIGNER [Primary Care Provider] -
[2017-03-09] MEDS: Clindamycin 900 MG/50 ML 900 MG/50 ML IV.SOLN IVPB SCH (08:20)
[2017-03-09] MEDS: Aspirin 81 MG TAB.CHEW PO SCH (08:21)
--- NOTE | 2017-03-09 08:41 | Pulmonology Progress Note ---
<Alistair Bajwa - Last Filed: 03/09/17 15:52> Date of Encounter: 03/09/17 Time of Encounter: 08:39 Assessment and Plan (1) Acute respiratory failure with hypoxia and hypercapnia Current Visit: Yes Status: Acute History of COPD with requirement of home oxygen of 3L. The patient had returned to the ICU intubated and was successfully extubated this morning. CT angio: No PE or acute aortic disease. Interstitial thickening with small bilateral effusions and lower lobe atalectasis. Duo-nebs ZAKIYA Q4hr. Continue home symbicort. Continue oxygen supplementation as needed. Currently on 10-15L. Will wean down today. Plan to transfer to step down today. Spoke with the hospitalist Dr. Yanes who accepted the patient, but wishes to have the patient in a telemetry bed. (2) COPD (chronic obstructive pulmonary disease) Current Visit: Yes Status: Acute See above. 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 The patient does not wish to have aggressive measures. Continues to deny symptoms of chest pain. (4) DVT prophylaxis Current Visit: No Status: Acute Aspirin 325mg BID recommended per orthopedics. Subjective Principal diagnosis: Right hip fx Interval history: The patient was seen and examined. The patient remained intubated after her surgery yesterday evening. She was extubated this morning in the ICU and is now oxygenating well on high flow nasal cannula. Plan to transfer to step down today. Objective PUL Vital signs: Last Vital Signs Temp 97.6 F 03/09/17 07:35 Pulse 86 03/09/17 08:00 Resp 16 03/09/17 07:54 BP 145/81 03/09/17 07:54 Pulse Ox 95 03/09/17 07:54 General appearance: no acute distress Eyes: nonicteric ENT: oropharynx moist Neck: supple Effort: normal Auscultation: bilateral: wheezes (mild expiratory wheezes) Cardiovascular: regular rate and rhythm Gastrointestinal: normoactive bowel sounds, non-distended Integumentary: other (bandanged surgical wound at right hip) Musculoskeletal: no deformities normal mental status, non-focal exam mood appropriate Ventilator Settings Ventilator Settings: Ventilator Settings, Last 8 Hours Ventilator Mode CPAP Ventilator Mode VC+ Ventilator Mode VC+ Ventilator Mode VC+ Ventilator Mode VC+ Ventilator Mode VC+ Ventilator Mode VC+ Ventilator Mode VC+ Ventilator Mode VC+ Ventilator Tidal Volume 450 Setting Ventilator Tidal Volume 450 Setting Ventilator Tidal Volume 450 Setting Ventilator Tidal Volume 450 Setting Ventilator Tidal Volume 450 Setting Ventilator Tidal Volume 450 Setting Ventilator Tidal Volume 450 Setting Ventilator Tidal Volume 450 Setting Ventilator Respiratory Rate 14 Setting Ventilator Respiratory Rate 14 Setting Ventilator Respiratory Rate 14 Setting Ventilator Respiratory Rate 14 Setting Ventilator Respiratory Rate 14 Setting Ventilator Respiratory Rate 14 Setting Ventilator Respiratory Rate 14 Setting Ventilator Respiratory Rate 14 Setting Actual Respiratory Rate 13 Actual Respiratory Rate 14 Actual Respiratory Rate 14 Positive End Expiratory 5 Pressure Positive End Expiratory 5 Pressure Positive End Expiratory 5 Pressure Positive End Expiratory 5 Pressure Positive End Expiratory 5 Pressure Positive End Expiratory 5 Pressure Positive End Expiratory 5 Pressure Positive End Expiratory 5 Pressure Positive End Expiratory 5 Pressure Peak Inspiratory Airway 15 Pressure Peak Inspiratory Airway 30 Pressure Peak Inspiratory Airway 28 Pressure Results - Laboratory Findings CBC and BMP: 03/09/17 03:22 03/09/17 03:26 ABG ABG pH 7.32 pH Units (7.32-7.45) 03/08/17 21:28 ABG pCO2 77 mmHg (35-45) H* 03/08/17 21:28 ABG pO2 57 mmHg (85-104) L 03/08/17 21:28 ABG O2 Saturation 87 % (95-98) L 03/08/17 21:28 PT/INR, D-dimer PT 10.7 Seconds (9.4-12.1) 03/06/17 12:22 Abnormal lab findings: Abnormal lab results RBC 3.75 M/mcL (3.82-4.97) L 03/08/17 10:07 Hgb 10.3 g/dL (11.5-15.4) L 03/09/17 03:22 Hct 33.5 % (35.3-44.9) L 03/09/17 03:22 MCHC 31.0 g/dL (31.6-35.5) L 03/08/17 10:07 APTT 48.7 Seconds (26.0-36.0) H 03/07/17 18:09 ABG pCO2 77 mmHg (35-45) H* 03/08/17 21:28 ABG pO2 57 mmHg (85-104) L 03/08/17 21:28 ABG HCO3 39.7 mEQ/L (21-27) H 03/08/17 21:28 ABG Total CO2 42.1 mEq/L (20-26) H 03/08/17 21:28 ABG O2 Saturation 87 % (95-98) L 03/08/17 21:28 ABG Base Excess 10.7 mEq/L (-2.0 to 3.0) H 03/08/17 21:28 Carbon Dioxide 32 mEq/L (19-29) H 03/09/17 03:26 Glucose 139 mg/dL (70-99) H 03/09/17 03:26 POC Glucose 141 (58-89) H 03/09/17 07:11 Troponin I 0.38 ng/mL (0-0.03) H* 03/07/17 09:23 - Clinical Findings Intake & Output: Intake & Output 03/08/17 03/09/17 03/09/17 23:59 07:59 15:59 Intake Total 10.3 / 10.3 62.6 / 62.6 Output Total 200 / 200 75 / 75 Balance -189.7 / -189.7 -12.4 / -12.4 Weight 46.6 kg - VTE Documentation of Mechanical Device: Intermittent pneumatic compression device Consult Discharge Plan - Plan Referrals: Tuyet Glynn, FOREST NURSERY WORKER [Primary Care Provider] - - Attending Attestation I examined this patient and my medical decision-making was reviewed with the TRAVEL INSURANCE AGENT/PA/Advanced Practice Nurse/Resident Physician. I agree with the documented findings, disposition and treatment plan as described except to the extent set forth below. <Ophelia Littlejohn - Last Filed: 03/09/17 16:04> Date of Encounter: 03/09/17 Objective PUL Vital signs: Last Vital Signs Temp 97.7 F 03/09/17 11:27 Pulse 90 03/09/17 14:00 Resp 16 03/09/17 14:00 BP 122/64 03/09/17 14:00 Pulse Ox 97 03/09/17 14:00 Results - Laboratory Findings CBC and BMP: 03/09/17 03:22 03/09/17 03:26 ABG ABG pH 7.32 pH Units (7.32-7.45) 03/08/17 21:28 ABG pCO2 77 mmHg (35-45) H* 03/08/17 21:28 ABG pO2 57 mmHg (85-104) L 03/08/17 21:28 ABG O2 Saturation 87 % (95-98) L 03/08/17 21:28 PT/INR, D-dimer PT 10.7 Seconds (9.4-12.1) 03/06/17 12:22 Abnormal lab findings: Abnormal lab results RBC 3.75 M/mcL (3.82-4.97) L 03/08/17 10:07 Hgb 10.3 g/dL (11.5-15.4) L 03/09/17 03:22 Hct 33.5 % (35.3-44.9) L 03/09/17 03:22 MCHC 31.0 g/dL (31.6-35.5) L 03/08/17 10:07 APTT 48.7 Seconds (26.0-36.0) H 03/07/17 18:09 ABG pCO2 77 mmHg (35-45) H* 03/08/17 21:28 ABG pO2 57 mmHg (85-104) L 03/08/17 21:28 ABG HCO3 39.7 mEQ/L (21-27) H 03/08/17 21:28 ABG Total CO2 42.1 mEq/L (20-26) H 03/08/17 21:28 ABG O2 Saturation 87 % (95-98) L 03/08/17 21:28 ABG Base Excess 10.7 mEq/L (-2.0 to 3.0) H 03/08/17 21:28 Carbon Dioxide 32 mEq/L (19-29) H 03/09/17 03:26 Glucose 139 mg/dL (70-99) H 03/09/17 03:26 POC Glucose 109 (58-89) H 03/09/17 15:33 Troponin I 0.38 ng/mL (0-0.03) H* 03/07/17 09:23 - Clinical Findings Intake & Output: Intake & Output 03/09/17 03/09/17 03/09/17 07:59 15:59 23:59 Intake Total 62.6 / 62.6 Output Total 75 / 75 75 / 75 Balance -12.4 / -12.4 -55 / -55 Weight 46.6 kg - Attending Attestation Patient seen and examined. Labs, radiology, chart personally reviewed. Agree with resident's history and physical, assessment, plan with following comments: PHARMACY BUYER: Patient follows commands, Pulmonary: Acceptable oxygenation and ventilation on a ventilator and due to agitation after she had completed spontaneous breathing trial, she was extubated successfully and oxygenation is improved placing O2 via mask and then nasal cannula. Cardiovascular: Cardiology follow-up GI: Nutrition per dietary and GI prophylaxis per routine Heme: DVT prophylaxis per routine and discussed this with the orthopedic. Renal; urine out put and renal funtion reviewed Endorcine: blood glucose is monitored Lines: all lines checked and no evidence of infections Skin: skin care to prevent pressure ulcers per nursing routine care If patient remains stable then we will transfer her to orthopedic floor
[2017-03-09] MEDS ORDERED: Aspirin 325 MG TABLET PO SCH ×3 (09:00→21:00)
[2017-03-09] MEDS ORDERED: Sennosides/Docusate Sodium TABLET PO SCH (10:30)
[2017-03-09] MEDS ORDERED: Ondansetron 4 MG/2 ML VIAL IVP PRN (15:04)
[2017-03-09] MEDS ORDERED: Naloxone 0.4 MG/ML INJ IVP PRN (15:04)
[2017-03-09] MEDS: *HR* LORazepam 1 MG TABLET PO PRN (21:46)
[2017-03-10 02:55] LABS: Hematocrit 33.1 % (35.3-44.9); Hemoglobin 10.5 g/dL (11.5-15.4)
[2017-03-10] MEDS: Ipratropium/Albuterol Neb 3 ML IH SCH ×6 (04:10→23:47)
--- NOTE | 2017-03-10 07:27 | Orthopedics Progress Note ---
Date of Encounter: 03/10/17 Time of Encounter: 07:24 - Assessment and Plan (1) Hip fracture Current Visit: Yes Status: Acute Qualifiers: Encounter type: initial encounter Fracture type: closed Laterality: right Qualified Code(s): S72.001A - Fracture of unspecified part of neck of right femur, initial encounter for closed fracture Subjective Principal diagnosis: Right hip fx Interval history: S: Extubated yesterday successfully. Pain improved significantly to the right hip compared to preoperatively. Current surgical site pain controlled. Has not been up walking yet but has been up to the chair. O: Afebrile VSS though tachycardic Right thigh wounds are clean and dry. Mild pain with log roll of the hip. She can flex and extend her toes well, and they are sensate and well perfused. A: Post op day 2 after internal fixation of the right hip. 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 with duralumin metalworker who feels related to COPD PT/OT WBAT when able to be mobilized Daily dressing changes Aspirin 325 PO BID, SCDs, Thigh High TEDs Pain controlled Objective Vital signs: Vital Signs Temp Pulse Resp BP Pulse Ox 03/10/17 05:05 98.9 F 03/10/17 04:10 22 93 03/10/17 04:00 128 28 122/70 93 03/10/17 00:54 98.5 F 03/10/17 00:00 134 22 132/70 95 03/09/17 23:46 18 93 03/09/17 20:20 94 23 133/72 93 03/09/17 20:03 24 93 03/09/17 19:56 98.2 F 03/09/17 17:00 14 93 03/09/17 16:09 98.0 F 03/09/17 16:00 90 03/09/17 14:00 90 16 122/64 97 03/09/17 12:00 90 16 120/62 97 03/09/17 11:30 12 93 03/09/17 11:27 97.7 F 03/09/17 11:00 79 16 93/56 97 03/09/17 10:00 77 16 87/51 99 03/09/17 08:00 86 03/09/17 07:54 86 16 145/81 95 03/09/17 07:42 18 92 03/09/17 07:38 92 04/20/17 07:35 97.6 F Intake and Output 03/09/17 03/09/17 03/10/17 15:59 23:59 07:59 Intake Total 7.4 / 7.4 Output Total 75 / 75 300 / 300 900 / 900 Balance -55 / -55 -300 / -300 -892.6 / -892.6 Intake: IV Fluids 7.4 / 7.4 PRECEDEX 400 mcg In 100 ml @ 2 MCG/KG/HR 23.496 mls/hr IVC .Q4H16M ZAKIYA Rx #:[id number] Output: Catheter 75 / 75 300 / 300 900 / 900 Other: Weight 48.943 kg Blood Glucose* 121 109 Patient Weight 03/10/17 23:59 Weight 48.943 kg - Labs CBC & BMP: 03/10/17 02:49 03/09/17 03:26 Labs: Abnormal lab results RBC 3.75 M/mcL (3.82-4.97) L 03/08/17 10:07 Hgb 10.5 g/dL (11.5-15.4) L 03/10/17 02:49 Hct 33.1 % (35.3-44.9) L 03/10/17 02:49 MCHC 31.0 g/dL (31.6-35.5) L 03/08/17 10:07 APTT 48.7 Seconds (26.0-36.0) H 03/07/17 18:09 ABG pCO2 77 mmHg (35-45) H* 03/08/17 21:28 ABG pO2 57 mmHg (85-104) L 03/08/17 21:28 ABG HCO3 39.7 mEQ/L (21-27) H 03/08/17 21:28 ABG Total CO2 42.1 mEq/L (20-26) H 03/08/17 21:28 ABG O2 Saturation 87 % (95-98) L 03/08/17 21:28 ABG Base Excess 10.7 mEq/L (-2.0 to 3.0) H 03/08/17 21:28 Carbon Dioxide 32 mEq/L (19-29) H 03/09/17 03:26 Glucose 139 mg/dL (70-99) H 03/09/17 03:26 POC Glucose 109 (58-89) H 03/09/17 15:33 Troponin I 0.38 ng/mL (0-0.03) H* 03/07/17 09:23 - VTE Documentation of Mechanical Device: Intermittent pneumatic compression device Consult Discharge Plan - Plan Referrals: Tuyet Glynn, POWER PLANT OPERATIONS MANAGER [Primary Care Provider] -
[2017-03-10] MEDS: Budesonide/Formoterol 160/4.5 MDI IH SCH ×2 (07:52→20:05)
[2017-03-10] MEDS: *HR* LORazepam 1 MG TABLET PO PRN (07:56)
[2017-03-10] MEDS: *HR* HYDROcodone/Acet 5/325 mg TABLET PO PRN ×2 (07:57→12:30)
[2017-03-10] MEDS: Sennosides/Docusate Sodium TABLET PO SCH (07:57)
--- NOTE | 2017-03-10 08:14 | Pulmonology Progress Note ---
<Alistair Bajwa - Last Filed: 03/10/17 08:25> Date of Encounter: 03/10/17 Time of Encounter: 08:13 Assessment and Plan (1) COPD (chronic obstructive pulmonary disease) Current Visit: Yes Status: Acute History of COPD with requirement of home oxygen of 3L. The patient had was extubated on 03/09 after her surgery of hip replacement late on 03/08. She has been on high flow oxygenation since being extubated and is oxygenating well. CT angio: No PE or acute aortic disease. Interstitial thickening with small bilateral effusions and lower lobe atalectasis. Duo-nebs ZAKIYA Q4hr. Continue home symbicort. Continue oxygen supplementation as needed. Currently on 10-15L. Will continue to try to wean down. Plan to transfer to step down today. 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 Subjective Principal diagnosis: Right hip fx Interval history: The patient was seen and examined. She was extubated yesterday morning in the ICU and is now oxygenating well on high flow nasal cannula. Plan to transfer to step down today. She had some dependent rales on her left side, which resolved after the patient sat up in bed and was more alert. Objective PUL Vital signs: Last Vital Signs Temp 98.0 F 03/10/17 07:46 Pulse 128 03/10/17 08:00 Resp 22 03/10/17 04:10 BP 122/70 03/10/17 04:00 Pulse Ox 93 03/10/17 04:10 General appearance: no acute distress Eyes: nonicteric ENT: oropharynx moist Neck: supple Effort: normal Auscultation: bilateral: clear Cardiovascular: regular rate and rhythm Gastrointestinal: normoactive bowel sounds, non-tender, non-distended Integumentary: normal, other (bandaged surgical wound over left hip) normal mental status, non-focal exam mood appropriate Results - Laboratory Findings CBC and BMP: 03/10/17 02:49 03/09/17 03:26 ABG ABG pH 7.32 pH Units (7.32-7.45) 03/08/17 21:28 ABG pCO2 77 mmHg (35-45) H* 03/08/17 21:28 ABG pO2 57 mmHg (85-104) L 03/08/17 21:28 ABG O2 Saturation 87 % (95-98) L 03/08/17 21:28 PT/INR, D-dimer PT 10.7 Seconds (9.4-12.1) 03/06/17 12:22 Abnormal lab findings: Abnormal lab results RBC 3.75 M/mcL (3.82-4.97) L 03/08/17 10:07 Hgb 10.5 g/dL (11.5-15.4) L 03/10/17 02:49 Hct 33.1 % (35.3-44.9) L 03/10/17 02:49 MCHC 31.0 g/dL (31.6-35.5) L 03/08/17 10:07 APTT 48.7 Seconds (26.0-36.0) H 03/07/17 18:09 ABG pCO2 77 mmHg (35-45) H* 03/08/17 21:28 ABG pO2 57 mmHg (85-104) L 03/08/17 21:28 ABG HCO3 39.7 mEQ/L (21-27) H 03/08/17 21:28 ABG Total CO2 42.1 mEq/L (20-26) H 03/08/17 21:28 ABG O2 Saturation 87 % (95-98) L 03/08/17 21:28 ABG Base Excess 10.7 mEq/L (-2.0 to 3.0) H 03/08/17 21:28 Carbon Dioxide 32 mEq/L (19-29) H 03/09/17 03:26 Glucose 139 mg/dL (70-99) H 03/09/17 03:26 POC Glucose 120 (58-89) H 03/10/17 07:30 Troponin I 0.38 ng/mL (0-0.03) H* 03/07/17 09:23 - Clinical Findings Intake & Output: Intake & Output 03/09/17 03/10/17 03/10/17 23:59 07:59 15:59 Intake Total 7.4 / 7.4 Output Total 300 / 300 1000 / 1000 Balance -300 / -300 -992.6 / -992.6 Weight 48.943 kg - VTE Documentation of Mechanical Device: Intermittent pneumatic compression device Consult Discharge Plan - Plan Referrals: Tuyet Glynn, STUDENT FINANCE SPECIALIST [Primary Care Provider] - - Attending Attestation I examined this patient and my medical decision-making was reviewed with the PEST CONTROL CHEMICAL TECHNICIAN/PA/Advanced Practice Nurse/Resident Physician. I agree with the documented findings, disposition and treatment plan as described except to the extent set forth below. <OnofreangelaOphelia chaidez M - Last Filed: 03/10/17 09:37> Date of Encounter: 03/10/17 Objective PUL Vital signs: Last Vital Signs Temp 98.0 F 03/10/17 07:46 Pulse 128 03/10/17 08:00 Resp 22 03/10/17 04:10 BP 122/70 03/10/17 04:00 Pulse Ox 93 03/10/17 04:10 Results - Laboratory Findings CBC and BMP: 03/10/17 02:49 03/09/17 03:26 ABG ABG pH 7.32 pH Units (7.32-7.45) 03/08/17 21:28 ABG pCO2 77 mmHg (35-45) H* 03/08/17 21:28 ABG pO2 57 mmHg (85-104) L 03/08/17 21:28 ABG O2 Saturation 87 % (95-98) L 03/08/17 21:28 PT/INR, D-dimer PT 10.7 Seconds (9.4-12.1) 03/06/17 12:22 Abnormal lab findings: Abnormal lab results RBC 3.75 M/mcL (3.82-4.97) L 03/08/17 10:07 Hgb 10.5 g/dL (11.5-15.4) L 03/10/17 02:49 Hct 33.1 % (35.3-44.9) L 03/10/17 02:49 MCHC 31.0 g/dL (31.6-35.5) L 03/08/17 10:07 APTT 48.7 Seconds (26.0-36.0) H 03/07/17 18:09 ABG pCO2 77 mmHg (35-45) H* 03/08/17 21:28 ABG pO2 57 mmHg (85-104) L 03/08/17 21:28 ABG HCO3 39.7 mEQ/L (21-27) H 03/08/17 21:28 ABG Total CO2 42.1 mEq/L (20-26) H 03/08/17 21:28 ABG O2 Saturation 87 % (95-98) L 03/08/17 21:28 ABG Base Excess 10.7 mEq/L (-2.0 to 3.0) H 03/08/17 21:28 Carbon Dioxide 32 mEq/L (19-29) H 03/09/17 03:26 Glucose 139 mg/dL (70-99) H 03/09/17 03:26 POC Glucose 120 (58-89) H 03/10/17 07:30 Troponin I 0.38 ng/mL (0-0.03) H* 03/07/17 09:23 - Clinical Findings Intake & Output: Intake & Output 03/09/17 03/10/17 03/10/17 23:59 07:59 15:59 Intake Total 7.4 / 7.4 Output Total 300 / 300 1000 / 1000 Balance -300 / -300 -992.6 / -992.6 Weight 48.943 kg - Attending Attestation Patient seen and examined. Labs, radiology, chart personally reviewed. Agree with resident's history and physical, assessment, plan with following comments: EDITORIAL WRITER: Patient follows commands, Pulmonary: Acceptable oxygenation and ventilation Cardiovascular: stable Overall patient is stable and still waiting for a bed in the medical floor. Discussed with orthopedics.
[2017-03-10] MEDS ORDERED: Aspirin 325 MG TABLET PO SCH (09:00)
[2017-03-10 11:12] LABS: BUN/Creatinine Ratio 25 (6-26); Blood Urea Nitrogen 15 mg/dL (7-20); Calcium 8.8 mg/dL (8.6-10.8); Carbon Dioxide 35 mEq/L (19-29); Chloride 97 mEq/L (98-109); Glucose 142 mg/dL (70-99); Osmolality,Calculated 293 (280-300); Sodium 140 mEq/L (136-145); eGFR For African Americans > 60 (> 60); eGFR For Non-African Americans > 60 (> 60)
[2017-03-10] MEDS: methylPREDNISolone 125 MG/2 ML VIAL IVP ONE ×2 (12:30→15:28)
[2017-03-10] MEDS ORDERED: predniSONE 20 MG TABLET PO ONE (13:28)
[2017-03-10] MEDS: Aspirin Enteric Coated 325 MG Tablet PO SCH (20:46)
[2017-03-11] MEDS: Ipratropium/Albuterol Neb 3 ML IH SCH ×6 (03:17→23:26)
[2017-03-11 05:28] LABS: Hematocrit 34.9 % (35.3-44.9); Hemoglobin 10.5 g/dL (11.5-15.4)
[2017-03-11] MEDS: Budesonide/Formoterol 160/4.5 MDI IH SCH ×2 (07:45→19:37)
[2017-03-11] MEDS ORDERED: Dexmedetomidine HCl 400 MCG/100 ML MLS IVC ONE (08:08)
[2017-03-11] MEDS ORDERED: *HR* Morphine 2 MG/ML SYRINGE ONE (08:10)
[2017-03-11] MEDS ORDERED: *HR* Morphine 2 MG/ML SYRINGE IVP ONE (08:14)
[2017-03-11] MEDS: Dexmedetomidine HCl 400 MCG/100 ML MLS IVC SCH (09:03)
[2017-03-11] MEDS: Sennosides/Docusate Sodium TABLET PO SCH (10:10)
[2017-03-11] MEDS: Aspirin Enteric Coated 325 MG Tablet PO SCH ×2 (10:10→20:20)
--- NOTE | 2017-03-11 10:52 | Pulmonology Progress Note ---
<LorettaTung Abraham - Last Filed: 03/11/17 15:43> Date of Encounter: 03/11/17 Time of Encounter: 08:50 Assessment and Plan (1) Acute and chronic respiratory failure ([id number]) Current Visit: No Status: Acute 1. Acute chronic respiratory failure with hypoxia and hypercapnea History of COPD with requirement of home oxygen of 3L. The patient had was extubated on 03/09 after her surgery of right trochangeric nail late on 03/08 secondary to right hip femoral neck fracture. She has been on high flow oxygenation since being extubated; refusing BiPap. CXR 03/11/17: Stable COPD with superimposed acute CHF and lung base consolidation CXR 03/09/17: CHF changes with increasing perihilar edema, developing bilateral effusions and bibasilar atelectasis Echo 03/07/17: LVEF 70%. Mild LV diastolic dysfunction. Severe pulm HTN - estimated RVSP > 70mmHg. CT angio 03/06/17: No PE or acute aortic disease. Interstitial thickening with small bilateral effusions and lower lobe atalectasis. - Begin solumedrol 80mg TID - Duo-nebs ZAKIYA Q4hr. - Continue home symbicort. - Precedex titrate for patient tolerance of BiPap. - Full mask BiPap, started on low flow and titrated up as patient tolerance allows. 2. DVT prophylaxis ASA 325mg BID per ortho recommendations. Qualifiers: Respiratory failure complication: hypoxia and hypercapnia Qualified Code(s) : J96.21 - Acute and chronic respiratory failure with hypoxia; J96.22 - Acute and chronic respiratory failure with hypercapnia (2) DVT prophylaxis Current Visit: No Status: Acute Plan as above. Subjective Principal diagnosis: Right hip fx Interval history: No acute events overnight. At beginning of the morning, Ms. Long desatted into the 50% range. She was alert and oriented. She initially refused bipap and outright refused intubation. We made clear to her she would and she was amenable to it. We were, however, able to convince her to try BiPap on medication, using a full face BiPap on lower pressure. Once placed, her saturations increased steadily and quickly to the 90%+. She became more spry and conversive. Objective PUL Vital signs: Last Vital Signs Temp 99.1 F 03/11/17 07:46 Pulse 84 03/11/17 10:04 Resp 27 03/11/17 10:04 BP 96/54 03/11/17 10:04 Pulse Ox 97 03/11/17 10:04 Results - Laboratory Findings CBC and BMP: 03/11/17 03:41 03/10/17 10:51 ABG ABG pH 7.32 pH Units (7.32-7.45) 03/08/17 21:28 ABG pCO2 77 mmHg (35-45) H* 03/08/17 21:28 ABG pO2 57 mmHg (85-104) L 03/08/17 21:28 ABG O2 Saturation 87 % (95-98) L 03/08/17 21:28 PT/INR, D-dimer PT 10.7 Seconds (9.4-12.1) 03/06/17 12:22 Abnormal lab findings: Abnormal lab results RBC 3.75 M/mcL (3.82-4.97) L 03/08/17 10:07 Hgb 10.5 g/dL (11.5-15.4) L 03/11/17 03:41 Hct 34.9 % (35.3-44.9) L 03/11/17 03:41 MCHC 31.0 g/dL (31.6-35.5) L 03/08/17 10:07 APTT 48.7 Seconds (26.0-36.0) H 03/07/17 18:09 ABG pCO2 77 mmHg (35-45) H* 03/08/17 21:28 ABG pO2 57 mmHg (85-104) L 03/08/17 21:28 ABG HCO3 39.7 mEQ/L (21-27) H 03/08/17 21:28 ABG Total CO2 42.1 mEq/L (20-26) H 03/08/17 21:28 ABG O2 Saturation 87 % (95-98) L 03/08/17 21:28 ABG Base Excess 10.7 mEq/L (-2.0 to 3.0) H 03/08/17 21:28 Chloride 97 mEq/L (98-109) L 03/10/17 10:51 Carbon Dioxide 35 mEq/L (19-29) H 03/10/17 10:51 Glucose 142 mg/dL (70-99) H 03/10/17 10:51 POC Glucose 113 (58-89) H 03/11/17 07:46 Troponin I 0.38 ng/mL (0-0.03) H* 03/07/17 09:23 25-OH Vitamin D Total 11 ng/mL (30-80) L 03/09/17 03:26 - Diagnostic Findings Chest x-ray: report reviewed, image reviewed - Clinical Findings Intake & Output: Intake & Output 03/10/17 03/11/17 03/11/17 23:59 07:59 15:59 Intake Total 0 / 0 Output Total 75 / 75 300 / 300 Balance -75 / -75 -300 / -300 0 / 0 Weight 47.3 kg - VTE Documentation of Mechanical Device: Intermittent pneumatic compression device Consult Discharge Plan - Plan Referrals: Tuyet Glynn, BRIAR SHOP SUPERVISOR [Primary Care Provider] - <Opheila Littlejohn - Last Filed: 03/11/17 18:21> Date of Encounter: 03/11/17 Objective PUL Vital signs: Last Vital Signs Temp 98.2 F 03/11/17 11:19 Pulse 84 03/11/17 11:35 Resp 19 03/11/17 11:08 BP 134/67 03/11/17 11:08 Pulse Ox 93 03/11/17 11:08 General appearance: lethargic, appears uncomfortable Eyes: nonicteric ENT: oropharynx dry Mallampati (class): 1 Neck: supple Effort: very labored Auscultation: bilateral: diminished breath sounds Percussion: bilateral: not dull Cardiovascular: regular rate and rhythm Gastrointestinal: normoactive bowel sounds, non-distended Extremities: cyanosis, edema Musculoskeletal: joint tenderness (post operative of the right hip) normal mental status, non-focal exam anxious Results - Laboratory Findings CBC and BMP: 03/11/17 03:41 03/10/17 10:51 ABG ABG pH 7.32 pH Units (7.32-7.45) 03/08/17 21:28 ABG pCO2 77 mmHg (35-45) H* 03/08/17 21:28 ABG pO2 57 mmHg (85-104) L 03/08/17 21:28 ABG O2 Saturation 87 % (95-98) L 03/08/17 21:28 PT/INR, D-dimer PT 10.7 Seconds (9.4-12.1) 03/06/17 12:22 Abnormal lab findings: Abnormal lab results RBC 3.75 M/mcL (3.82-4.97) L 03/08/17 10:07 Hgb 10.5 g/dL (11.5-15.4) L 03/11/17 03:41 Hct 34.9 % (35.3-44.9) L 03/11/17 03:41 MCHC 31.0 g/dL (31.6-35.5) L 03/08/17 10:07 APTT 48.7 Seconds (26.0-36.0) H 03/07/17 18:09 ABG pCO2 77 mmHg (35-45) H* 03/08/17 21:28 ABG pO2 57 mmHg (85-104) L 03/08/17 21:28 ABG HCO3 39.7 mEQ/L (21-27) H 03/08/17 21:28 ABG Total CO2 42.1 mEq/L (20-26) H 03/08/17 21:28 ABG O2 Saturation 87 % (95-98) L 03/08/17 21:28 ABG Base Excess 10.7 mEq/L (-2.0 to 3.0) H 03/08/17 21:28 Chloride 97 mEq/L (98-109) L 03/10/17 10:51 Carbon Dioxide 35 mEq/L (19-29) H 03/10/17 10:51 Glucose 142 mg/dL (70-99) H 03/10/17 10:51 POC Glucose 108 (58-89) H 03/11/17 11:21 Troponin I 0.38 ng/mL (0-0.03) H* 03/07/17 09:23 25-OH Vitamin D Total 11 ng/mL (30-80) L 03/09/17 03:26 - Clinical Findings Intake & Output: Intake & Output 03/10/17 03/11/17 03/11/17 23:59 07:59 15:59 Intake Total 0 / 0 Output Total 75 / 75 300 / 300 150 / 150 Balance -75 / -75 -300 / -300 -150 / -150 Weight 47.3 kg - Attending Attestation I examined this patient and my medical decision-making was reviewed with the INSPECTOR FLOOR/PA/Advanced Practice Nurse/Resident Physician. I agree with the documented findings, disposition and treatment plan as described except to the extent set forth below. Patient seen and examined. Labs, radiology, chart personally reviewed. 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 Patient would refuse any noninvasive ventilation, however I was able to convince her to try it with giving Her morphine and Precedex which helped her anxiety. Patient had diminished breath sounds mainly in the left side and chest x-ray was done which was reviewed and showed some atelectasis. Patient's oxygenation was deteriorating with SPO2 in the 50s. However that improvement and continue with BiPAP and patient does not want any arterial blood gas. I discussed with the hospitalist to cancel transfer to the floor at this time due to worsening of her respiratory status. Patient is tachycardic due to the distress. After the intervention patient stabilized to acceptable condition and continue bronchodilators with systemic steroids. Prognosis remained poor, however I am hoping she will stabilize and then she can be transferred to the floor. I spent 32 min of Critical Care time with this patient. It involved decision making of high complexity to assess, manipulate, and support vital organ system failure and/or to prevent further life threatening deterioration of the patient' s condition. The time involved in the performance of separately reportable procedures was not counted toward critical care time.
[2017-03-11] MEDS: methylPREDNISolone 125 MG/2 ML VIAL IVP SCH (20:20)
[2017-03-12] MEDS: methylPREDNISolone 125 MG/2 ML VIAL IVP SCH ×3 (00:01→16:21)
[2017-03-12] MEDS: Ipratropium/Albuterol Neb 3 ML IH SCH ×6 (03:37→23:22)
[2017-03-12 03:56] LABS: Hematocrit 31.1 % (35.3-44.9); Hemoglobin 9.7 g/dL (11.5-15.4); Immature Platelets 10.1 % (1.1-6.1); Mean Corpuscular HGB Conc 31.2 g/dL (31.6-35.5); Mean Corpuscular Hemoglobin 29.9 pg (28.0-33.3); Mean Platelet Volume 11.9 fL (9.4-12.4); Red Blood Count 3.24 M/mcL (3.82-4.97); Red Cell Distribution Width 13.9 % (11.5-14.5)
[2017-03-12 04:09] LABS: BUN/Creatinine Ratio 38 (6-26); Blood Urea Nitrogen 21 mg/dL (7-20); Calcium 9.2 mg/dL (8.6-10.8); Carbon Dioxide 33 mEq/L (19-29); Chloride 95 mEq/L (98-109); Glucose 123 mg/dL (70-99); Osmolality,Calculated 292 (280-300); Potassium 4.9 mEq/L (3.5-4.5); Sodium 139 mEq/L (136-145); eGFR For African Americans > 60 (> 60); eGFR For Non-African Americans > 60 (> 60)
[2017-03-12] MEDS: Budesonide/Formoterol 160/4.5 MDI IH SCH ×2 (07:42→19:29)
[2017-03-12] MEDS: Aspirin Enteric Coated 325 MG Tablet PO SCH ×2 (08:17→19:41)
[2017-03-12] MEDS: Sennosides/Docusate Sodium TABLET PO SCH (08:17)
--- NOTE | 2017-03-12 09:37 | Pulmonology Progress Note ---
<Tung Burgos - Last Filed: 03/12/17 10:00> Date of Encounter: 03/12/17 Time of Encounter: 08:00 Assessment and Plan (1) Acute and chronic respiratory failure ([id number]) Current Visit: No Status: Acute 1. Acute chronic respiratory failure with hypoxia and hypercapnea History of COPD with requirement of home oxygen of 3L. The patient had was extubated on 03/09 after her surgery of right trochangeric nail late on 03/08 secondary to right hip femoral neck fracture. She has been on high flow oxygenation since being extubated; refusing BiPap. CXR 03/11/17: Stable COPD with superimposed acute CHF and lung base consolidation CXR 03/09/17: CHF changes with increasing perihilar edema, developing bilateral effusions and bibasilar atelectasis Echo 03/07/17: LVEF 70%. Mild LV diastolic dysfunction. Severe pulm HTN - estimated RVSP > 70mmHg. CT angio 03/06/17: No PE or acute aortic disease. Interstitial thickening with small bilateral effusions and lower lobe atalectasis. - Wean from full mask BiPap to High flow O2. BiPap PRN thereafter. - May consider bilateral LE ultrasound to eval for EVT given patient's recent post-op status and dyspnea, though her hx of O2 dependent COPD is the likely reason for her dyspnea. - Solumedrol 80mg TID - Duo-nebs ZAKIYA Q4hr. - Continue home symbicort. - Continue physical therapy and ortho post-op recommendations - Ortho is following; their input appreciated. 2. DVT prophylaxis ASA 325mg BID per ortho recommendations. Qualifiers: Respiratory failure complication: hypoxia and hypercapnia Qualified Code(s) : J96.21 - Acute and chronic respiratory failure with hypoxia; J96.22 - Acute and chronic respiratory failure with hypercapnia (2) DVT prophylaxis Current Visit: No Status: Acute Plan as above. Subjective Principal diagnosis: Right hip fx Interval history: No acute events overnight. Ms. Long did well with full-face BiPap yesterday and overnight. Weaned successfully to high flow O2 this morning. She ate breakfast without difficulty. She has no questions or complaints at this time. Objective PUL Vital signs: Last Vital Signs Temp 97 F L 03/12/17 08:00 Pulse 85 03/12/17 08:00 Resp 22 03/12/17 08:00 BP 138/58 03/12/17 08:00 Pulse Ox 90 03/12/17 08:00 General appearance: no acute distress, alert Eyes: nonicteric ENT: oropharynx moist Neck: supple Effort: normal Auscultation: bilateral: clear Cardiovascular: regular rate and rhythm Gastrointestinal: normoactive bowel sounds, soft, non-tender, non-distended Integumentary: other (clean bandage over right hip post-op incision.) Extremities: no cyanosis, no edema, no clubbing, pink and warm, pulses normal Musculoskeletal: no deformities normal mental status, pupils equal and round mood appropriate, affect normal Results - Laboratory Findings CBC and BMP: 03/12/17 03:29 03/12/17 03:29 ABG ABG pH 7.32 pH Units (7.32-7.45) 03/08/17 21:28 ABG pCO2 77 mmHg (35-45) H* 03/08/17 21:28 ABG pO2 57 mmHg (85-104) L 03/08/17 21:28 ABG O2 Saturation 87 % (95-98) L 03/08/17 21:28 PT/INR, D-dimer PT 10.7 Seconds (9.4-12.1) 03/06/17 12:22 Abnormal lab findings: Abnormal lab results RBC 3.24 M/mcL (3.82-4.97) L 03/12/17 03:29 Hgb 9.7 g/dL (11.5-15.4) L 03/12/17 03:29 Hct 31.1 % (35.3-44.9) L 03/12/17 03:29 MCHC 31.2 g/dL (31.6-35.5) L 03/12/17 03:29 Immature Plt Fraction 10.1 % (1.1-6.1) H 03/12/17 03:29 APTT 48.7 Seconds (26.0-36.0) H 03/07/17 18:09 ABG pCO2 77 mmHg (35-45) H* 03/08/17 21:28 ABG pO2 57 mmHg (85-104) L 03/08/17 21:28 ABG HCO3 39.7 mEQ/L (21-27) H 03/08/17 21:28 ABG Total CO2 42.1 mEq/L (20-26) H 03/08/17 21:28 ABG O2 Saturation 87 % (95-98) L 03/08/17 21:28 ABG Base Excess 10.7 mEq/L (-2.0 to 3.0) H 03/08/17 21:28 Potassium 4.9 mEq/L (3.5-4.5) H 03/12/17 03:29 Chloride 95 mEq/L (98-109) L 03/12/17 03:29 Carbon Dioxide 33 mEq/L (19-29) H 03/12/17 03:29 BUN 21 mg/dL (7-20) H 03/12/17 03:29 Creatinine 0.55 mg/dL (0.57-1.11) L 03/12/17 03:29 BUN/Creatinine Ratio 38 (6-26) H 03/12/17 03:29 Glucose 123 mg/dL (70-99) H 03/12/17 03:29 POC Glucose 127 (58-89) H 03/12/17 07:20 Troponin I 0.38 ng/mL (0-0.03) H* 03/07/17 09:23 25-OH Vitamin D Total 11 ng/mL (30-80) L 03/09/17 03:26 - Clinical Findings Intake & Output: Intake & Output 03/11/17 03/12/17 03/12/17 23:59 07:59 15:59 Intake Total 131 / 131 20 / 20 Output Total 150 / 150 250 / 250 Balance -19 / -19 -250 / -250 20 / 20 Weight 48 kg - VTE Documentation of Mechanical Device: Intermittent pneumatic compression device Consult Discharge Plan - Plan Referrals: Tuyet Glynn, PRESSURIZATION MECHANIC [Primary Care Provider] - <Ophelia Littlejohn - Last Filed: 03/12/17 10:12> Date of Encounter: 03/12/17 Objective PUL Vital signs: Last Vital Signs Temp 97 F L 03/12/17 08:00 Pulse 76 03/12/17 09:00 Resp 20 03/12/17 09:00 BP 121/77 03/12/17 09:00 Pulse Ox 94 03/12/17 09:00 Results - Laboratory Findings CBC and BMP: 03/12/17 03:29 03/12/17 03:29 ABG ABG pH 7.32 pH Units (7.32-7.45) 03/08/17 21:28 ABG pCO2 77 mmHg (35-45) H* 03/08/17 21:28 ABG pO2 57 mmHg (85-104) L 03/08/17 21:28 ABG O2 Saturation 87 % (95-98) L 03/08/17 21:28 PT/INR, D-dimer PT 10.7 Seconds (9.4-12.1) 03/06/17 12:22 Abnormal lab findings: Abnormal lab results RBC 3.24 M/mcL (3.82-4.97) L 03/12/17 03:29 Hgb 9.7 g/dL (11.5-15.4) L 03/12/17 03:29 Hct 31.1 % (35.3-44.9) L 03/12/17 03:29 MCHC 31.2 g/dL (31.6-35.5) L 03/12/17 03:29 Immature Plt Fraction 10.1 % (1.1-6.1) H 03/12/17 03:29 APTT 48.7 Seconds (26.0-36.0) H 03/07/17 18:09 ABG pCO2 77 mmHg (35-45) H* 03/08/17 21:28 ABG pO2 57 mmHg (85-104) L 03/08/17 21:28 ABG HCO3 39.7 mEQ/L (21-27) H 03/08/17 21:28 ABG Total CO2 42.1 mEq/L (20-26) H 03/08/17 21:28 ABG O2 Saturation 87 % (95-98) L 03/08/17 21:28 ABG Base Excess 10.7 mEq/L (-2.0 to 3.0) H 03/08/17 21:28 Potassium 4.9 mEq/L (3.5-4.5) H 03/12/17 03:29 Chloride 95 mEq/L (98-109) L 03/12/17 03:29 Carbon Dioxide 33 mEq/L (19-29) H 03/12/17 03:29 BUN 21 mg/dL (7-20) H 03/12/17 03:29 Creatinine 0.55 mg/dL (0.57-1.11) L 03/12/17 03:29 BUN/Creatinine Ratio 38 (6-26) H 03/12/17 03:29 Glucose 123 mg/dL (70-99) H 03/12/17 03:29 POC Glucose 127 (58-89) H 03/12/17 07:20 Troponin I 0.38 ng/mL (0-0.03) H* 03/07/17 09:23 25-OH Vitamin D Total 11 ng/mL (30-80) L 03/09/17 03:26 - Clinical Findings Intake & Output: Intake & Output 03/11/17 03/12/17 03/12/17 23:59 07:59 15:59 Intake Total 131 / 131 20 Output Total 150 / 150 250 / 250 Balance -19 / -19 -250 / -250 Weight 48 kg - Attending Attestation I examined this patient and my medical decision-making was reviewed with the BOTTOM STAINER/PA/Advanced Practice Nurse/Resident Physician. I agree with the documented findings, disposition and treatment plan as described except to the extent set forth below. Patient seen and examined. Labs, radiology, chart personally reviewed. Agree with resident's history and physical, assessment, plan with following comments: MANAGER CLIENT: Patient follows commands, Pulmonary: Acceptable oxygenation and ventilation and she is tolerating high flow oxygen to alternate with BiPAP as tolerated Cardiovascular: stable GI: Nutrition per dietary and GI prophylaxis per routine Heme: DVT prophylaxis per routine Patient will need physical therapy and due to her tenuous pulmonary status, we will keep her in ICU for next 24 hours
[2017-03-12] MEDS: Dexmedetomidine HCl 400 MCG/100 ML MLS IVC SCH (16:16)
--- NOTE | 2017-03-12 18:20 | Orthopedics Progress Note ---
Date of Encounter: 03/11/17 Time of Encounter: 14:05 Subjective Principal diagnosis: Right hip fx Interval history: Respiratory management per pulmonary staff/ On Vent mask. Alert. AFVSS. NVI bilateral lower extremities. Right hips dressing c/d/i. Stable. Rehab when respiratory status improves. Objective Vital signs: Vital Signs Temp Pulse Resp BP Pulse Ox 03/12/17 18:00 82 19 154/68 95 03/12/17 17:00 78 18 138/71 93 03/12/17 16:00 84 18 146/55 94 03/12/17 15:45 99.4 F 03/12/17 15:39 18 90 03/12/17 15:36 79 03/12/17 15:00 80 16 144/95 91 03/12/17 14:00 79 16 134/68 93 03/12/17 13:00 81 16 144/71 90 03/12/17 12:00 84 20 129/96 90 03/12/17 11:29 98.5 F 03/12/17 11:28 76 03/12/17 11:19 19 97 03/12/17 10:00 77 22 149/72 97 03/12/17 09:00 76 20 121/77 94 03/12/17 08:00 97 F L 82 22 138/58 90 03/12/17 07:39 18 120/62 96 03/12/17 07:17 97.0 F L 03/12/17 06:00 72 18 119/62 96 03/12/17 05:00 73 20 115/65 94 03/12/17 04:00 97.4 F L 78 22 103/57 96 03/12/17 03:37 19 100 03/12/17 03:00 74 18 111/60 98 03/12/17 02:00 77 21 89/48 98 03/12/17 01:00 76 18 105/55 99 03/12/17 00:00 97.1 F L 75 20 102/53 100 03/11/17 23:28 17 96 03/11/17 23:00 76 19 91/47 100 03/11/17 22:00 82 20 107/52 100 03/11/17 21:00 80 22 99/52 100 03/11/17 20:00 97.5 F L 80 22 103/51 100 03/11/17 19:43 23 108/54 96 03/11/17 19:00 79 20 108/54 100 Intake and Output 03/12/17 03/12/17 03/12/17 07:59 15:59 23:59 Intake Total 500 / 500 Output Total 250 / 250 250 / 250 Balance -250 / -250 250 / 250 Intake: IV Fluids 20 / 20 PRECEDEX 400 mcg In 100 20 / 20 ml @ 0.2 MCG/KG/HR 2.365 mls/hr IVC .Q24H ZAKIYA Rx#: [id number] Oral 480 / 480 Output: Catheter 250 / 250 250 / 250 Other: Meal Breakfast Percent of Meal Consumed 60% Weight 48 kg Blood Glucose* 127 215 Patient Weight 03/12/17 23:59 Weight 48 kg - Labs CBC & BMP: 03/12/17 03:29 03/12/17 03:29 Labs: Abnormal lab results RBC 3.24 M/mcL (3.82-4.97) L 03/12/17 03:29 Hgb 9.7 g/dL (11.5-15.4) L 03/12/17 03:29 Hct 31.1 % (35.3-44.9) L 03/12/17 03:29 MCHC 31.2 g/dL (31.6-35.5) L 03/12/17 03:29 Immature Plt Fraction 10.1 % (1.1-6.1) H 03/12/17 03:29 APTT 48.7 Seconds (26.0-36.0) H 03/07/17 18:09 ABG pCO2 77 mmHg (35-45) H* 03/08/17 21:28 ABG pO2 57 mmHg (85-104) L 03/08/17 21:28 ABG HCO3 39.7 mEQ/L (21-27) H 03/08/17 21:28 ABG Total CO2 42.1 mEq/L (20-26) H 03/08/17 21:28 ABG O2 Saturation 87 % (95-98) L 03/08/17 21:28 ABG Base Excess 10.7 mEq/L (-2.0 to 3.0) H 03/08/17 21:28 Potassium 4.9 mEq/L (3.5-4.5) H 03/12/17 03:29 Chloride 95 mEq/L (98-109) L 03/12/17 03:29 Carbon Dioxide 33 mEq/L (19-29) H 03/12/17 03:29 BUN 21 mg/dL (7-20) H 03/12/17 03:29 Creatinine 0.55 mg/dL (0.57-1.11) L 03/12/17 03:29 BUN/Creatinine Ratio 38 (6-26) H 03/12/17 03:29 Glucose 123 mg/dL (70-99) H 03/12/17 03:29 POC Glucose 215 (58-89) H 03/12/17 15:47 Troponin I 0.38 ng/mL (0-0.03) H* 03/07/17 09:23 25-OH Vitamin D Total 11 ng/mL (30-80) L 03/09/17 03:26 - VTE Documentation of Mechanical Device: Intermittent pneumatic compression device Consult Discharge Plan - Plan Referrals: Tuyet Glynn, BOW MAKER MACHINE TENDER [Primary Care Provider] -
--- NOTE | 2017-03-12 18:41 | Orthopedics Progress Note ---
Date of Encounter: 03/12/17 Time of Encounter: 18:40 Subjective Principal diagnosis: Right hip fx Interval history: Respiratory management per pulmonary staff. Improved. On O2 via nasal canula. Alert. AFVSS. NVI bilateral lower extremities. Right hips dressing c/d/i. Stable. Can likely begin to mobilize as pulmonary status improving. D/C planning per Dr Bragg. Objective Vital signs: Vital Signs Temp Pulse Resp BP Pulse Ox 03/12/17 18:00 82 19 154/68 95 03/12/17 17:00 78 18 138/71 93 03/12/17 16:00 84 18 146/55 94 03/12/17 15:45 99.4 F 03/12/17 15:39 18 90 03/12/17 15:36 79 03/12/17 15:00 80 16 144/95 91 03/12/17 14:00 79 16 134/68 93 03/12/17 13:00 81 16 144/71 90 03/12/17 12:00 84 20 129/96 90 03/12/17 11:29 98.5 F 03/12/17 11:28 76 03/12/17 11:19 19 97 03/12/17 10:00 77 22 149/72 97 03/12/17 09:00 76 20 121/77 94 03/12/17 08:00 97 F L 82 22 138/58 90 03/12/17 07:39 18 120/62 96 03/12/17 07:17 97.0 F L 03/12/17 06:00 72 18 119/62 96 03/12/17 05:00 73 20 115/65 94 03/12/17 04:00 97.4 F L 78 22 103/57 96 03/12/17 03:37 19 100 03/12/17 03:00 74 18 111/60 98 03/12/17 02:00 77 21 89/48 98 03/12/17 01:00 76 18 105/55 99 03/12/17 00:00 97.1 F L 75 20 102/53 100 03/11/17 23:28 17 96 03/11/17 23:00 76 19 91/47 100 03/11/17 22:00 82 20 107/52 100 03/11/17 21:00 80 22 99/52 100 03/11/17 20:00 97.5 F L 80 22 103/51 100 03/11/17 19:43 23 108/54 96 03/11/17 19:00 79 20 108/54 100 Intake and Output 03/12/17 03/12/17 03/12/17 07:59 15:59 23:59 Intake Total 500 / 500 Output Total 250 / 250 250 / 250 Balance -250 / -250 250 / 250 Intake: IV Fluids 20 / 20 PRECEDEX 400 mcg In 100 20 / 20 ml @ 0.2 MCG/KG/HR 2.365 mls/hr IVC .Q24H ZAKIYA Rx#: [id number] Oral 480 / 480 Output: Catheter 250 / 250 250 / 250 Other: Meal Breakfast Percent of Meal Consumed 60% Weight 48 kg Blood Glucose* 127 215 Patient Weight 03/12/17 23:59 Weight 48 kg - Labs CBC & BMP: 03/12/17 03:29 03/12/17 03:29 Labs: Abnormal lab results RBC 3.24 M/mcL (3.82-4.97) L 03/12/17 03:29 Hgb 9.7 g/dL (11.5-15.4) L 03/12/17 03:29 Hct 31.1 % (35.3-44.9) L 03/12/17 03:29 MCHC 31.2 g/dL (31.6-35.5) L 03/12/17 03:29 Immature Plt Fraction 10.1 % (1.1-6.1) H 03/12/17 03:29 APTT 48.7 Seconds (26.0-36.0) H 03/07/17 18:09 ABG pCO2 77 mmHg (35-45) H* 03/08/17 21:28 ABG pO2 57 mmHg (85-104) L 03/08/17 21:28 ABG HCO3 39.7 mEQ/L (21-27) H 03/08/17 21:28 ABG Total CO2 42.1 mEq/L (20-26) H 03/08/17 21:28 ABG O2 Saturation 87 % (95-98) L 03/08/17 21:28 ABG Base Excess 10.7 mEq/L (-2.0 to 3.0) H 03/08/17 21:28 Potassium 4.9 mEq/L (3.5-4.5) H 03/12/17 03:29 Chloride 95 mEq/L (98-109) L 03/12/17 03:29 Carbon Dioxide 33 mEq/L (19-29) H 03/12/17 03:29 BUN 21 mg/dL (7-20) H 03/12/17 03:29 Creatinine 0.55 mg/dL (0.57-1.11) L 03/12/17 03:29 BUN/Creatinine Ratio 38 (6-26) H 03/12/17 03:29 Glucose 123 mg/dL (70-99) H 03/12/17 03:29 POC Glucose 215 (58-89) H 03/12/17 15:47 Troponin I 0.38 ng/mL (0-0.03) H* 03/07/17 09:23 25-OH Vitamin D Total 11 ng/mL (30-80) L 03/09/17 03:26 - VTE Documentation of Mechanical Device: Intermittent pneumatic compression device Consult Discharge Plan - Plan Referrals: Tuyet Glynn PAPER BAG PRESS OPERATOR [Primary Care Provider] -
[2017-03-13] MEDS: *HR* HYDROcodone/Acet 5/325 mg TABLET PO PRN ×3 (00:01→13:38)
[2017-03-13 04:10] LABS: Hematocrit 31.8 % (35.3-44.9); Immature Platelets 9.6 % (1.1-6.1); Mean Corpuscular HGB Conc 31.4 g/dL (31.6-35.5); Mean Corpuscular Hemoglobin 29.3 pg (28.0-33.3); Mean Corpuscular Volume 93.3 fL (83.0-100.0); Mean Platelet Volume 11.3 fL (9.4-12.4); Red Blood Count 3.41 M/mcL (3.82-4.97); Red Cell Distribution Width 13.9 % (11.5-14.5)
[2017-03-13] MEDS: Ipratropium/Albuterol Neb 3 ML IH SCH ×5 (04:11→20:12)
[2017-03-13 04:34] LABS: BUN/Creatinine Ratio 38 (6-26); Blood Urea Nitrogen 21 mg/dL (7-20); Calcium 9.1 mg/dL (8.6-10.8); Carbon Dioxide 33 mEq/L (19-29); Chloride 97 mEq/L (98-109); Glucose 111 mg/dL (70-99); Osmolality,Calculated 294 (280-300); Potassium 4.1 mEq/L (3.5-4.5); Sodium 140 mEq/L (136-145); eGFR For African Americans > 60 (> 60); eGFR For Non-African Americans > 60 (> 60)
[2017-03-13] MEDS: methylPREDNISolone 125 MG/2 ML VIAL IVP SCH ×2 (05:00→08:41)
--- NOTE | 2017-03-13 07:34 | Orthopedics Progress Note ---
Date of Encounter: 03/13/17 Time of Encounter: 07:31 - Assessment and Plan (1) Hip fracture Current Visit: Yes Status: Acute Qualifiers: Encounter type: initial encounter Fracture type: closed Laterality: right Qualified Code(s): S72.001A - Fracture of unspecified part of neck of right femur, initial encounter for closed fracture Subjective Principal diagnosis: Right hip fx Interval history: S: Now on nasal canula. No complaints regarding the right hip. Pain well controlled. O: Afebrile VSS Right thigh wounds are clean and dry. Mild pain with log roll of the hip. She can flex and extend her toes well, and they are sensate and well perfused. A: Post internal fixation of the right hip. Slowly improving from respiratory standpoint. Slow progression with therapy. P: Supportive care for COPD per primary team PT/OT WBAT when able to be mobilized Up to chair at least BID Aspirin 325 PO BID, SCDs, Thigh High TEDs Vitamin D2 50,000 units q week Calcium 1200 mg PO Daily Daily dressing changes Objective Vital signs: Vital Signs Temp Pulse Resp BP Pulse Ox 03/13/17 06:00 75 12 151/66 97 03/13/17 05:09 98.1 F 03/13/17 05:00 80 20 122/63 92 03/13/17 04:11 20 97 03/13/17 04:00 78 18 142/72 97 03/13/17 03:00 79 20 137/68 96 03/13/17 02:00 80 16 128/62 98 03/13/17 01:00 79 18 128/61 98 03/13/17 00:50 98.1 F 03/13/17 00:00 87 18 147/64 95 03/12/17 23:23 18 95 03/12/17 23:00 82 18 146/70 95 03/12/17 22:00 88 18 138/67 96 03/12/17 20:00 98.8 F 84 20 134/62 94 03/12/17 19:29 19 95 03/12/17 19:00 85 20 152/81 96 03/12/17 18:00 82 19 154/68 95 03/12/17 17:00 78 18 138/71 93 03/12/17 16:00 84 18 146/55 94 03/12/17 15:45 99.4 F 03/12/17 15:39 18 90 03/12/17 15:36 79 03/12/17 15:00 80 16 144/95 91 03/12/17 14:00 79 16 134/68 93 03/12/17 13:00 81 16 144/71 90 03/12/17 12:00 84 20 129/96 90 03/12/17 11:29 98.5 F 03/12/17 11:28 76 03/12/17 11:19 19 97 03/12/17 10:00 77 22 149/72 97 03/12/17 09:00 76 20 121/77 94 03/12/17 08:00 97 F L 82 22 138/58 90 03/12/17 07:39 18 120/62 96 Intake and Output 03/12/17 03/12/17 03/13/17 15:59 23:59 07:59 Intake Total 500 / 500 Output Total 250 / 250 75 / 75 225 / 225 Balance 250 / 250 -75 / -75 -225 / -225 Intake: IV Fluids 20 / 20 PRECEDEX 400 mcg In 100 20 / 20 ml @ 0.2 MCG/KG/HR 2.365 mls/hr IVC .Q24H ZAKIYA Rx#: [id number] Oral 480 / 480 Output: Catheter 250 / 250 75 / 75 225 / 225 Other: Meal Breakfast Percent of Meal Consumed 60% Weight 49.8 kg Blood Glucose* 215 134 Patient Weight 03/13/17 23:59 Weight 49.8 kg - Labs CBC & BMP: 03/13/17 03:44 03/13/17 03:44 Labs: Abnormal lab results WBC 17.1 K/mcL (4.3-11.1) H D 03/13/17 03:44 RBC 3.41 M/mcL (3.82-4.97) L 03/13/17 03:44 Hgb 10.0 g/dL (11.5-15.4) L 03/13/17 03:44 Hct 31.8 % (35.3-44.9) L 03/13/17 03:44 MCHC 31.4 g/dL (31.6-35.5) L 03/13/17 03:44 Immature Plt Fraction 9.6 % (1.1-6.1) H 03/13/17 03:44 APTT 48.7 Seconds (26.0-36.0) H 03/07/17 18:09 ABG pCO2 77 mmHg (35-45) H* 03/08/17 21:28 ABG pO2 57 mmHg (85-104) L 03/08/17 21:28 ABG HCO3 39.7 mEQ/L (21-27) H 03/08/17 21:28 ABG Total CO2 42.1 mEq/L (20-26) H 03/08/17 21:28 ABG O2 Saturation 87 % (95-98) L 03/08/17 21:28 ABG Base Excess 10.7 mEq/L (-2.0 to 3.0) H 03/08/17 21:28 Chloride 97 mEq/L (98-109) L 03/13/17 03:44 Carbon Dioxide 33 mEq/L (19-29) H 03/13/17 03:44 BUN 21 mg/dL (7-20) H 03/13/17 03:44 Creatinine 0.56 mg/dL (0.57-1.11) L 03/13/17 03:44 BUN/Creatinine Ratio 38 (6-26) H 03/13/17 03:44 Glucose 111 mg/dL (70-99) H 03/13/17 03:44 POC Glucose 134 (58-89) H 03/12/17 19:48 Troponin I 0.38 ng/mL (0-0.03) H* 03/07/17 09:23 25-OH Vitamin D Total 11 ng/mL (30-80) L 03/09/17 03:26 - VTE Documentation of Mechanical Device: Intermittent pneumatic compression device Consult Discharge Plan - Plan Additional Instructions: [facility] DISCHARGE INSTRUCTIONS Dr. Bragg PROCEDURE PERFORMED Reduction and fixation of right hip. Incision care -Daily dressing changes to the right hip with dry gauze and either paper tape or medipore tape. -Avoid soaking wound in water (no hot tubs, bathtubs, swimming pools). -May shower after 2 weeks from surgery date. Carefully wash incision with soap and water. Gently pat it dry. Don't rub the incision, or apply creams or lotions. Sit on a shower stool when showering to keep from falling. Weight bearing status -Weightbearing as tolerated to the bilateral lower extremities. Medications -Pain medication per the discharging medical doctor -Enteric coated aspirin 325 mg by mouth twice per day for 28 days from the date of the surgery. -Resume 50,000 units of vitamin D2 daily and 1,200 mg of calcium supplementation per day. Other -Knee high RONALDO hose 23 hours per day -Consult physical and occupational therapy for ambulation. -Up to chair with assistance at least twice per day. -Follow up with your primary care physician to discuss testing for bone mineral density. Follow-up with Dr. Bragg at the office 2 weeks from the surgery date for a post operative evaluation. Call the office at [phone] to schedule appointment. Referrals: Tuyet Glynn, RESIDENTIAL MORTGAGE MANAGER [Primary Care Provider] -
[2017-03-13] MEDS: Budesonide/Formoterol 160/4.5 MDI IH SCH ×2 (07:35→20:12)
[2017-03-13] MEDS: Sennosides/Docusate Sodium TABLET PO SCH (07:56)
[2017-03-13] MEDS: Aspirin Enteric Coated 325 MG Tablet PO SCH ×2 (07:56→20:02)
--- NOTE | 2017-03-13 08:21 | Pulmonology Progress Note ---
Date of Encounter: 03/13/17 Time of Encounter: 07:35 Assessment and Plan (1) COPD (chronic obstructive pulmonary disease) Current Visit: Yes Status: Acute History of COPD with requirement of home oxygen of 3L. The patient had was extubated on 03/09 after her surgery of hip replacement late on 03/08. She has been on high flow oxygenation since being extubated and is oxygenating well. She needed BiPAP over the weekend and had one instance of desaturation into the 50s. Once again refusing BiPAP. Patient states she just wants to be comfortable. CT angio: No PE or acute aortic disease. Interstitial thickening with small bilateral effusions and lower lobe atalectasis. Duo-nebs ZAKIYA Q4hr. Continue home symbicort. Continue oxygen supplementation as needed. Currently on 10-15L. Will continue to try to wean down to 4L as a goal. Consult to palliative with planned transfer out of the ICU today. 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 Subjective Principal diagnosis: Right hip fx Interval history: The patient was seen and examined. She required BiPAP periodically over the weekend, but is now refusing to use BiPAP ever again. She states that she just wants to be comfortable for her last days. She had no questions at this time and states she Objective PUL Vital signs: Last Vital Signs Temp 98.1 F 03/13/17 08:11 Pulse 75 03/13/17 06:00 Resp 15 03/13/17 07:37 BP 151/66 03/13/17 07:37 Pulse Ox 93 03/13/17 07:37 General appearance: no acute distress Eyes: nonicteric ENT: oropharynx moist Neck: supple Effort: normal, other (cough present intermittently) Auscultation: bilateral: clear Cardiovascular: regular rate and rhythm Gastrointestinal: normoactive bowel sounds, soft, non-tender, non-distended Integumentary: normal, other (bandaged surgical wound at the right hip) Extremities: no cyanosis Musculoskeletal: no deformities normal mental status, non-focal exam mood appropriate Results - Laboratory Findings CBC and BMP: 03/13/17 03:44 03/13/17 03:44 ABG ABG pH 7.32 pH Units (7.32-7.45) 03/08/17 21:28 ABG pCO2 77 mmHg (35-45) H* 03/08/17 21:28 ABG pO2 57 mmHg (85-104) L 03/08/17 21:28 ABG O2 Saturation 87 % (95-98) L 03/08/17 21:28 PT/INR, D-dimer PT 10.7 Seconds (9.4-12.1) 03/06/17 12:22 Abnormal lab findings: Abnormal lab results WBC 17.1 K/mcL (4.3-11.1) H D 03/13/17 03:44 RBC 3.41 M/mcL (3.82-4.97) L 03/13/17 03:44 Hgb 10.0 g/dL (11.5-15.4) L 03/13/17 03:44 Hct 31.8 % (35.3-44.9) L 03/13/17 03:44 MCHC 31.4 g/dL (31.6-35.5) L 03/13/17 03:44 Immature Plt Fraction 9.6 % (1.1-6.1) H 03/13/17 03:44 APTT 48.7 Seconds (26.0-36.0) H 03/07/17 18:09 ABG pCO2 77 mmHg (35-45) H* 03/08/17 21:28 ABG pO2 57 mmHg (85-104) L 03/08/17 21:28 ABG HCO3 39.7 mEQ/L (21-27) H 03/08/17 21:28 ABG Total CO2 42.1 mEq/L (20-26) H 03/08/17 21:28 ABG O2 Saturation 87 % (95-98) L 03/08/17 21:28 ABG Base Excess 10.7 mEq/L (-2.0 to 3.0) H 03/08/17 21:28 Chloride 97 mEq/L (98-109) L 03/13/17 03:44 Carbon Dioxide 33 mEq/L (19-29) H 03/13/17 03:44 BUN 21 mg/dL (7-20) H 03/13/17 03:44 Creatinine 0.56 mg/dL (0.57-1.11) L 03/13/17 03:44 BUN/Creatinine Ratio 38 (6-26) H 03/13/17 03:44 Glucose 111 mg/dL (70-99) H 03/13/17 03:44 POC Glucose 115 (58-89) H 03/13/17 07:30 Troponin I 0.38 ng/mL (0-0.03) H* 03/07/17 09:23 25-OH Vitamin D Total 11 ng/mL (30-80) L 03/09/17 03:26 - Clinical Findings Intake & Output: Intake & Output 03/12/17 03/13/17 03/13/17 23:59 07:59 15:59 Output Total 75 / 75 225 / 225 100 / 100 Balance -75 / -75 -225 / -225 -100 / -100 Weight 49.8 kg - VTE Documentation of Mechanical Device: Intermittent pneumatic compression device Consult Discharge Plan - Plan Additional Instructions: [facility] DISCHARGE INSTRUCTIONS Dr. Bragg PROCEDURE PERFORMED Reduction and fixation of right hip. Incision care -Daily dressing changes to the right hip with dry gauze and either paper tape or medipore tape. -Avoid soaking wound in water (no hot tubs, bathtubs, swimming pools). -May shower after 2 weeks from surgery date. Carefully wash incision with soap and water. Gently pat it dry. Don't rub the incision, or apply creams or lotions. Sit on a shower stool when showering to keep from falling. Weight bearing status -Weightbearing as tolerated to the bilateral lower extremities. Medications -Pain medication per the discharging medical doctor -Enteric coated aspirin 325 mg by mouth twice per day for 28 days from the date of the surgery. -Resume 50,000 units of vitamin D2 daily and 1,200 mg of calcium supplementation per day. Other -Knee high RONALDO hose 23 hours per day -Consult physical and occupational therapy for ambulation. -Up to chair with assistance at least twice per day. -Follow up with your primary care physician to discuss testing for bone mineral density. Follow-up with Dr. Bragg at the office 2 weeks from the surgery date for a post operative evaluation. Call the office at [phone] to schedule appointment. Referrals: Tuyet Glynn JOURNEYMAN POWERHOUSE OPERATOR [Primary Care Provider] - - Attending Attestation I examined this patient and my medical decision-making was reviewed with the BAND LINING BANDER/PA/Advanced Practice Nurse/Resident Physician. I agree with the documented findings, disposition and treatment plan as described except to the extent set forth below.
--- NOTE | 2017-03-13 09:51 | Event Note ---
Date of Encounter: 03/13/17 Time of Encounter: 09:49 This elderly lady with quite advanced COPD he recently underwent repair of a fractured hip successfully. A she remains in the intensive care unit setting given the magnitude of hypoxemia which has improved with measures as outlined. The patient currently denies severe breathlessness, cough or chest congestion. Examination notable for reduced breath sound intensity throughout all viveros minimal rhonchi. Cardiac exam unremarkable. I reviewed the patient's chart as well as all pertinent laboratory data and radiographic information. I discussed the situation with the patient. Aside from continuation of treatment for advanced COPD and titration of oxygen with a saturation goal between 85 and 88%, the patient wishes to not receive any aggressive measures and would be interested in discussing care with palliative service. To this end , the patient will be transferred out of the intensive care unit later today and palliative care services been consulted to assist with her management. Ana Nicholson [phone]
[2017-03-13] MEDS: Dexmedetomidine HCl 400 MCG/100 ML MLS IVC SCH (10:13)
[2017-03-13] MEDS ORDERED: Morphine Oral CONC 5 MG/0.25 ML ORAL.SYG PO PRN ×2 (10:49→18:08)
--- NOTE | 2017-03-13 10:51 | Palliative - Consult Note ---
Date of Encounter: 03/13/17 Time of Encounter: 10:50 - Assessment and Plan (1) Right hip pain Current Visit: Yes Status: Acute Assessment and plan: Currently on [place] post op, received x2 last 24 hours. Monitor (2) Dyspnea Current Visit: Yes Status: Acute Assessment and plan: Currently receiving high flow oxygen, bronchodilators, and steroids. Patient has transitioned to comfort care. Discussed trialing low dose opioids for air hunger and anxiety, and she would like to trial. Discussed side effect of possible resp depression, and she verbalized understanding. Will begin Roxanol 2.5mg every 4 hours PRN for breathlessness or air hunger. Qualifiers: Dyspnea type: unspecified Qualified Code(s): R06.00 - Dyspnea, unspecified (3) Counseling regarding advanced care planning and goals of care Current Visit: Yes Status: Acute Assessment and plan: Patient alert and oriented and conversant. Lives alone, with 5 children. States daughter aTmmy is power of test carrier, but not sure if it includes healthcare. She has completed living will as well. She states she is in a place in her life where she doesn't tolerate much pain, and desires to be comfortable. She has good understanding that her respiratory status is not good , and that she is at risk for hypoxia and CO2 retention. She did not tolerate bipap well this weekend, but did keep in on a few hours yesterday afternoon. She does not want aggressive measures or testing done at this point in her life and states she just desires to be comfortable. She wants nothing done for resuscitation if she were in critical condition. Explained and discussed DNR status, and She would like to transition to DNR-Comfort care. She is fine with receiving fluids for hydration if necessary, or antibiotics for infections. Code status revised to align with her wishes. She will need rehab upon discharge and appears [facility] will not be able to accommodate her. public health worker will be seeing her later to discuss other options. Will continue to follow, she will most likely transition out of the ICU today if bed available. (4) COPD (chronic obstructive pulmonary disease) Current Visit: Yes Status: Acute Qualifiers: COPD type: emphysema Emphysema type: centrilobular Qualified Code(s): J43.2 - Centrilobular emphysema (5) Acute respiratory failure with hypoxia and hypercapnia Current Visit: Yes Status: Acute (6) Hip fracture Current Visit: Yes Status: Acute Qualifiers: Encounter type: initial encounter Fracture type: closed Laterality: right Qualified Code(s): S72.001A - Fracture of unspecified part of neck of right femur, initial encounter for closed fracture Palliative-CN HPI - Data of Consult Consult date: 03/13/17 Requesting Physician: Grace Briones MD Primary Care Provider: Tuyet Glynn CNP - Consult Narrative History of present illness: Ms. Long is a 81 year old female who had a fall at home while on telephone, and suffered a right hip fracture. She lives alone and has history of COPD and is on home oxygen 3LPM. She Upon ER visit, she became very hypotensive and AMS after opioid medication, and naltraxone was administered. She was admitted to ICU and stabilized prior to surgery. She did have Surgery and was extubated successfully, however, has still struggled with her respiratory status. She required bipap some over the weekend, and does not tolerate this well. She has remained on high flow oxygen, and staff attempting to wean down today. Patient has been discussing her wishes with the ICU staff and providers, and does not desire for any type of aggressive care to be done. She feels that her lungs are weaker since the surgery, and has also been struggling with anxiety. She does plan on going to rehab at this point after hospital stay. CC: Grace Briones MD Past Med Surg Social Fam HX - Past Medical History Medical history: COPD, GERD Psychiatric history: anxiety, depression - Past Surgical History Surgical History: cholecystectomy, other (rectovaginal fistula surgery, " stomach surgery", TL, finger amputation.) - Social History Smoking Status: Current every day smoker Smokeless Tobacco Status: No Alcohol use: none Drug use: none Medications and Allergies Levalbuterol [Xopenex] 4 puff IH Q4H PRN 07/28/15 [History] Budesonide/Formoterol 160/4.5 [Symbicort] 2 puff IH BIDR #1 [email or web address] 07/31/15 [Rx] Ipratropium/Albuterol Neb [Duoneb] 3 ml IH Q6HR PRN 03/06/17 [History] LORazepam [Ativan] 1 mg PO BID PRN 03/06/17 [History] Lidocaine Patch [Lidoderm 5% patch] 1 each TP DAILY 03/06/17 [History] Omeprazole [PriLOSEC] 20 mg PO DAILY 03/06/17 [History] Allergies Penicillins Adverse Reaction (Verified 07/28/15 10:51) Hives All systems: reviewed and no additional remarkable complaints except as stated ( Rt hip pain with movement, anxiety, shortness of breath without exertion, poor appetite) Palliative Care-Exam - Constitutional Vitals: Temp Pulse Resp BP Pulse Ox 98.1 F 105 22 146/79 89 03/13/17 08:11 03/13/17 09:00 03/13/17 09:00 03/13/17 09:00 03/13/17 09:00 General appearance: Present: no acute distress - Head Head Exam: Present: normal inspection, normocephalic - Eye Eye exam: Present: normal appearance, PERRL - ENT ENT exam: Present: mucous membranes dry - Expanded Respiratory Exam Location: decreased breath sounds: Left, Right, Lower - Cardiovascular Cardiovascular exam: Present: +S1, +S2 - GI/Abdominal Exam GI/Abdominal exam: Present: normal bowel sounds, soft - Catheter Type: Urethral (Black) - Extremities Exam Extremities exam: Present: normal capillary refill, normal inspection Additional comments: Rt leg with 1+ edema. Dressing D/I rt hip - Neurological Exam Neurological exam: Present: alert, oriented X3, strengths equal and symetr throughout Additional comments: Generalized weakness - Psychiatric Psychiatric exam: Present: normal affect, normal mood - Skin Skin exam: Present: dry, pallor, warm Internal Medicine - CN: Reslt - Labs CBC & Chem 7: 03/13/17 03:44 03/13/17 03:44 Labs: Short CBC 03/13/17 Range/Units 03:44 WBC 17.1 H D (4.3-11.1) K/mcL Hgb 10.0 L (11.5-15.4) g/dL Hct 31.8 L (35.3-44.9) % Plt Count 361 (140-400) K/mcL BMP 03/13/17 03:44 Sodium 140 Potassium 4.1 Chloride 97 L Carbon Dioxide 33 H BUN 21 H Creatinine 0.56 L Glucose 111 H Calcium 9.1 - ABG Interpretation ABG results: ABG ABG pH 7.32 pH Units (7.32-7.45) 03/08/17 21:28 ABG pCO2 77 mmHg (35-45) H* 03/08/17 21:28 ABG pO2 57 mmHg (85-104) L 03/08/17 21:28 ABG O2 Saturation 87 % (95-98) L 03/08/17 21:28 PT/INR, D-dimer PT 10.7 Seconds (9.4-12.1) 03/06/17 12:22 Consult Discharge Plan - Plan Additional Instructions: HALFWAY DISCHARGE INSTRUCTIONS Dr. Bragg PROCEDURE PERFORMED Reduction and fixation of right hip. Incision care -Daily dressing changes to the right hip with dry gauze and either paper tape or medipore tape. -Avoid soaking wound in water (no hot tubs, bathtubs, swimming pools). -May shower after 2 weeks from surgery date. Carefully wash incision with soap and water. Gently pat it dry. Don't rub the incision, or apply creams or lotions. Sit on a shower stool when showering to keep from falling. Weight bearing status -Weightbearing as tolerated to the bilateral lower extremities. Medications -Pain medication per the discharging medical doctor -Enteric coated aspirin 325 mg by mouth twice per day for 28 days from the date of the surgery. -Resume 50,000 units of vitamin D2 daily and 1,200 mg of calcium supplementation per day. Other -Knee high RONALDO hose 23 hours per day -Consult physical and occupational therapy for ambulation. -Up to chair with assistance at least twice per day. -Follow up with your primary care physician to discuss testing for bone mineral density. Follow-up with Dr. Bragg at the office 2 weeks from the surgery date for a post operative evaluation. Call the office at [phone] to schedule appointment. Referrals: Tuyet Glynn DRAFTING SUPERVISOR [Primary Care Provider] - Palliative Quality Palliative Quality: Screen for Code Status: Yes, Screen for Goals of Care: Yes, Screen for Pain: Yes, If Pain Regimen Started, Initiate Bowel Regimen: Yes, Screen for Nausea/Vomitting: Yes
[2017-03-13] MEDS ORDERED: Furosemide 20 MG/2 ML VIAL IVP ONE (11:02)
[2017-03-13] MEDS ORDERED: Bisacodyl 10 MG RECTAL SUPPOSITORY RC SCH (11:15)
[2017-03-13] MEDS ORDERED: predniSONE 20 MG TABLET PO SCH (11:15)
[2017-03-13] MEDS ORDERED: Ondansetron 4 MG/2 ML VIAL IVP PRN (18:08)
[2017-03-13] MEDS ORDERED: *HR* LORazepam 1 MG TABLET PO PRN (18:08)
[2017-03-13] MEDS ORDERED: Naloxone 0.4 MG/ML INJ IVP PRN (18:08)
[2017-03-14] MEDS: Ipratropium/Albuterol Neb 3 ML IH SCH ×6 (04:20→20:41)
[2017-03-14 05:35] LABS: Basophils % 0.2 %; Hematocrit 34.1 % (35.3-44.9); Hemoglobin 10.6 g/dL (11.5-15.4); Immature Granulocytes % 1.3 % (0-4); Lymphocytes # 0.7 K/mcL (0.6-4.6); Lymphocytes % 3.7 %; Mean Corpuscular HGB Conc 31.1 g/dL (31.6-35.5); Mean Corpuscular Hemoglobin 29.2 pg (28.0-33.3); Mean Corpuscular Volume 93.9 fL (83.0-100.0); Mean Platelet Volume 11.2 fL (9.4-12.4); Monocytes # 0.8 K/mcL (0.0-1.3); Monocytes % 4.8 %; Platelet Count 359 K/mcL (140-400); Red Blood Count 3.63 M/mcL (3.82-4.97); Red Cell Distribution Width 13.8 % (11.5-14.5)
[2017-03-14 05:37] LABS: Neutrophils # 15.8 K/mcL (1.6-8.9)
[2017-03-14 05:50] LABS: BUN/Creatinine Ratio 45 (6-26); Blood Urea Nitrogen 24 mg/dL (7-20); Calcium 9.3 mg/dL (8.6-10.8); Carbon Dioxide 36 mEq/L (19-29); Chloride 96 mEq/L (98-109); Glucose 122 mg/dL (70-99); Osmolality,Calculated 295 (280-300); Potassium 4.4 mEq/L (3.5-4.5); Sodium 140 mEq/L (136-145); eGFR For African Americans > 60 (> 60); eGFR For Non-African Americans > 60 (> 60)
--- NOTE | 2017-03-14 07:25 | Orthopedics Progress Note ---
Date of Encounter: 03/14/17 Time of Encounter: 07:23 - Assessment and Plan (1) Hip fracture Current Visit: Yes Status: Acute Qualifiers: Encounter type: initial encounter Fracture type: closed Laterality: right Qualified Code(s): S72.001A - Fracture of unspecified part of neck of right femur, initial encounter for closed fracture Subjective Principal diagnosis: Right hip fx Interval history: S: Pain well controlled to the right hip. No new complaints. Transitioned to the floor today from the ICU O: Afebrile VSS Right thigh wounds are clean and dry. Mild pain with log roll of the hip. She can flex and extend her toes well, and they are sensate and well perfused. A: Post internal fixation of the right hip. Sat up in a chair for several hours yesterday. P: Leukocytosis; Work up per primary team. PT/OT WBAT when able to be mobilized Up to chair at least BID Black D/Yobani Aspirin 325 PO BID, SCDs, Thigh High TEDs Vitamin D2 50,000 units q week Calcium 1200 mg PO Daily Daily dressing changes Objective Vital signs: Vital Signs Temp Pulse Resp BP Pulse Ox 03/14/17 06:35 97.8 F 76 16 140/73 95 03/14/17 04:37 97.3 F L 69 16 150/83 95 03/13/17 23:11 98.4 F 89 17 152/74 87 03/13/17 22:00 81 18 137/63 94 03/13/17 21:11 97.7 F 03/13/17 21:00 89 22 163/67 90 03/13/17 20:13 20 134/68 92 03/13/17 20:00 88 22 134/68 90 03/13/17 19:00 88 20 144/71 90 03/13/17 18:30 89 20 154/76 03/13/17 17:30 81 20 139/69 93 03/13/17 16:37 97.9 F 03/13/17 16:30 85 21 137/66 91 03/13/17 15:47 18 91 03/13/17 15:26 88 21 141/72 90 03/13/17 14:15 84 23 145/63 88 03/13/17 13:00 89 22 152/79 90 03/13/17 12:00 77 21 145/71 89 03/13/17 11:48 16 93 03/13/17 11:00 77 22 141/83 89 03/13/17 10:00 80 22 146/87 90 03/13/17 09:00 105 22 146/79 89 03/13/17 08:11 98.1 F 03/13/17 08:00 91 23 141/71 90 03/13/17 07:37 15 151/66 93 Intake and Output 03/13/17 03/13/17 03/14/17 15:59 23:59 07:59 Intake Total 360 / 360 Output Total 100 / 100 1325 / 1325 400 / 400 Balance 260 / 260 -1325 / -1325 -400 / -400 Intake: Oral 360 / 360 Output: Catheter 100 / 100 1325 / 1325 400 / 400 Other: Meal Lunch Percent of Meal Consumed 50% Weight 45.2 kg Blood Glucose* 115 166 - Labs CBC & BMP: 03/14/17 04:59 03/14/17 04:59 Labs: Abnormal lab results WBC 17.6 K/mcL (4.3-11.1) H 03/14/17 04:59 RBC 3.63 M/mcL (3.82-4.97) L 03/14/17 04:59 Hgb 10.6 g/dL (11.5-15.4) L 03/14/17 04:59 Hct 34.1 % (35.3-44.9) L 03/14/17 04:59 MCHC 31.1 g/dL (31.6-35.5) L 03/14/17 04:59 Neutrophils # 15.8 K/mcL (1.6-8.9) H 03/14/17 04:59 Immature Plt Fraction 9.6 % (1.1-6.1) H 03/13/17 03:44 APTT 48.7 Seconds (26.0-36.0) H 03/07/17 18:09 ABG pCO2 77 mmHg (35-45) H* 03/08/17 21:28 ABG pO2 57 mmHg (85-104) L 03/08/17 21:28 ABG HCO3 39.7 mEQ/L (21-27) H 03/08/17 21:28 ABG Total CO2 42.1 mEq/L (20-26) H 03/08/17 21:28 ABG O2 Saturation 87 % (95-98) L 03/08/17 21:28 ABG Base Excess 10.7 mEq/L (-2.0 to 3.0) H 03/08/17 21:28 Chloride 96 mEq/L (98-109) L 03/14/17 04:59 Carbon Dioxide 36 mEq/L (19-29) H 03/14/17 04:59 BUN 24 mg/dL (7-20) H 03/14/17 04:59 Creatinine 0.53 mg/dL (0.57-1.11) L 03/14/17 04:59 BUN/Creatinine Ratio 45 (6-26) H 03/14/17 04:59 Glucose 122 mg/dL (70-99) H 03/14/17 04:59 POC Glucose 166 (58-89) H 03/13/17 20:50 Troponin I 0.38 ng/mL (0-0.03) H* 03/07/17 09:23 25-OH Vitamin D Total 11 ng/mL (30-80) L 03/09/17 03:26 - VTE Documentation of Mechanical Device: Intermittent pneumatic compression device Consult Discharge Plan - Plan Additional Instructions: [facility]DC DISCHARGE INSTRUCTIONS Dr. Bragg PROCEDURE PERFORMED Reduction and fixation of right hip. Incision care -Daily dressing changes to the right hip with dry gauze and either paper tape or medipore tape. -Avoid soaking wound in water (no hot tubs, bathtubs, swimming pools). -May shower after 2 weeks from surgery date. Carefully wash incision with soap and water. Gently pat it dry. Don't rub the incision, or apply creams or lotions. Sit on a shower stool when showering to keep from falling. Weight bearing status -Weightbearing as tolerated to the bilateral lower extremities. Medications -Pain medication per the discharging medical doctor -Enteric coated aspirin 325 mg by mouth twice per day for 28 days from the date of the surgery. -Resume 50,000 units of vitamin D2 daily and 1,200 mg of calcium supplementation per day. Other -Knee high RONALDO hose 23 hours per day -Consult physical and occupational therapy for ambulation. -Up to chair with assistance at least twice per day. -Follow up with your primary care physician to discuss testing for bone mineral density. Follow-up with Dr. Bragg at the office 2 weeks from the surgery date for a post operative evaluation. Call the office at [phone] to schedule appointment. Referrals: Tuyet Glynn CNP [Primary Care Provider] - 07/28/17 1:05 pm
[2017-03-14] MEDS: Budesonide/Formoterol 160/4.5 MDI IH SCH ×2 (08:01→20:41)
[2017-03-14] MEDS ORDERED: Bisacodyl 10 MG RECTAL SUPPOSITORY RC SCH (09:00)
[2017-03-14] MEDS: Aspirin Enteric Coated 325 MG Tablet PO SCH ×2 (09:35→20:06)
[2017-03-14] MEDS: *HR* HYDROcodone/Acet 5/325 mg TABLET PO PRN ×2 (09:35→15:03)
[2017-03-14] MEDS: Sennosides/Docusate Sodium TABLET PO SCH (09:36)
[2017-03-14] MEDS: predniSONE 20 MG TABLET PO SCH (09:36)
--- NOTE | 2017-03-14 11:12 | Palliative Progress Note ---
Date of Encounter: 03/14/17 Time of Encounter: 11:00 - Assessment and plan (1) Right hip pain Current Visit: Yes Status: Acute Assessment and plan: Continues with [place] PRN. Utilized x2 last 24 hours. She did discuss that she does not like to ask for medications and doesn't want staff to think that she is "misusing" pain medication. Discussed at length her need to take when uncomfortable to assist with toleration of mobility and therapy. Verbalized understanding. (2) Dyspnea Current Visit: Yes Status: Acute Assessment and plan: Continue Roxanol PRN for breathlessness. Has not utilized. Again encouraged her to ask if needed. Qualifiers: Dyspnea type: unspecified Qualified Code(s): R06.00 - Dyspnea, unspecified (3) Counseling regarding advanced care planning and goals of care Current Visit: Yes Status: Acute Assessment and plan: Completed health care POA and she designated daughter Tammy Roth, primary agent and sonGonzales as alternate. Completed state DNR form as well and copies of both provided to pt. Awaiting word from [facility] for rehab. Will continue to follow. 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 High flow oxygen currently on 6 LPM - she does desaturate to mid 80's with conversation. Denies pain at present. Doesn' t feel she is breathing as well today. C/o some anxiety. Anxious re: d/c plan and hoping [facility] will have a bed open up and accept her. - Constitutional Vitals: Abnormal lab results WBC 17.6 K/mcL (4.3-11.1) H 03/14/17 04:59 RBC 3.63 M/mcL (3.82-4.97) L 03/14/17 04:59 Hgb 10.6 g/dL (11.5-15.4) L 03/14/17 04:59 Hct 34.1 % (35.3-44.9) L 03/14/17 04:59 MCHC 31.1 g/dL (31.6-35.5) L 03/14/17 04:59 Neutrophils # 15.8 K/mcL (1.6-8.9) H 03/14/17 04:59 Immature Plt Fraction 9.6 % (1.1-6.1) H 03/13/17 03:44 APTT 48.7 Seconds (26.0-36.0) H 03/07/17 18:09 ABG pCO2 77 mmHg (35-45) H* 03/08/17 21:28 ABG pO2 57 mmHg (85-104) L 03/08/17 21:28 ABG HCO3 39.7 mEQ/L (21-27) H 03/08/17 21:28 ABG Total CO2 42.1 mEq/L (20-26) H 03/08/17 21:28 ABG O2 Saturation 87 % (95-98) L 03/08/17 21:28 ABG Base Excess 10.7 mEq/L (-2.0 to 3.0) H 03/08/17 21:28 Chloride 96 mEq/L (98-109) L 03/14/17 04:59 Carbon Dioxide 36 mEq/L (19-29) H 03/14/17 04:59 BUN 24 mg/dL (7-20) H 03/14/17 04:59 Creatinine 0.53 mg/dL (0.57-1.11) L 03/14/17 04:59 BUN/Creatinine Ratio 45 (6-26) H 03/14/17 04:59 Glucose 122 mg/dL (70-99) H 03/14/17 04:59 POC Glucose 166 (58-89) H 03/13/17 20:50 Troponin I 0.38 ng/mL (0-0.03) H* 03/07/17 09:23 25-OH Vitamin D Total 11 ng/mL (30-80) L 03/09/17 03:26 General appearance: Present: no acute distress - Respiratory Respiratory exam: Present: decreased breath sounds, CTAB - Cardiovascular Cardiovascular exam: Present: +S1, +S2 - GI/Abdominal GI/Abdominal exam: Present: normal bowel sounds, soft - Extremities Exam Extremities exam: Present: normal capillary refill, normal inspection - Neurological Exam Neurological exam: Present: alert, oriented X3, strengths equal and symetr throughout - Skin Skin exam: Present: dry, pallor, warm Palliative Quality Palliative Quality: Screen for Code Status: Yes, Screen for Goals of Care: Yes, Screen for Pain: Yes, If Pain Regimen Started, Initiate Bowel Regimen: Yes, Screen for Nausea/Vomitting: Yes Code Status: 03/13/17 10:49 DNR [Resuscitation Status: Active] [RES] Routine Comment: Resuscitation Status: DNR-Comfort Care - Labs CBC & Chem 7: 03/14/17 04:59 03/14/17 04:59 Labs: Laboratory Results - last 24 hr 03/13/17 03/13/17 03/14/17 15:14 20:50 04:59 WBC 17.6 H RBC 3.63 L Hgb 10.6 L Hct 34.1 L MCV 93.9 MCH 29.2 MCHC 31.1 L RDW 13.8 Plt Count 359 MPV 11.2 Immature Gran % 1.3 Seg Neutrophils % 90.0 Lymphocytes % 3.7 Monocytes % 4.8 Eosinophils % 0.0 Basophils % 0.2 Neutrophils # 15.8 H Lymphocytes # 0.7 Monocytes # 0.8 Eosinophils # 0.0 Basophils # 0.0 Sodium Potassium Chloride Carbon Dioxide BUN Creatinine Est GFR ( Amer) Est GFR (Non-Af Amer) BUN/Creatinine Ratio Glucose POC Glucose 146 H 166 H Calculated Osmolality Calcium 03/14/17 04:59 WBC RBC Hgb Hct MCV MCH MCHC RDW Plt Count MPV Immature Gran % Seg Neutrophils % Lymphocytes % Monocytes % Eosinophils % Basophils % Neutrophils # Lymphocytes # Monocytes # Eosinophils # Basophils # Sodium 140 Potassium 4.4 Chloride 96 L Carbon Dioxide 36 H BUN 24 H Creatinine 0.53 L Est GFR ( Amer) > 60 Est GFR (Non-Af Amer) > 60 BUN/Creatinine Ratio 45 H Glucose 122 H POC Glucose Calculated Osmolality 295 Calcium 9.3 - ABG Interpretation ABG results: ABG ABG pH 7.32 pH Units (7.32-7.45) 03/08/17 21:28 ABG pCO2 77 mmHg (35-45) H* 03/08/17 21:28 ABG pO2 57 mmHg (85-104) L 03/08/17 21:28 ABG O2 Saturation 87 % (95-98) L 03/08/17 21:28 PT/INR, D-dimer PT 10.7 Seconds (9.4-12.1) 03/06/17 12:22 Consult Discharge Plan - Plan Additional Instructions: HALFWAY DISCHARGE INSTRUCTIONS Dr. Bragg PROCEDURE PERFORMED Reduction and fixation of right hip. Incision care -Daily dressing changes to the right hip with dry gauze and either paper tape or medipore tape. -Avoid soaking wound in water (no hot tubs, bathtubs, swimming pools). -May shower after 2 weeks from surgery date. Carefully wash incision with soap and water. Gently pat it dry. Don't rub the incision, or apply creams or lotions. Sit on a shower stool when showering to keep from falling. Weight bearing status -Weightbearing as tolerated to the bilateral lower extremities. Medications -Pain medication per the discharging medical doctor -Enteric coated aspirin 325 mg by mouth twice per day for 28 days from the date of the surgery. -Resume 50,000 units of vitamin D2 daily and 1,200 mg of calcium supplementation per day. Other -Knee high RONALDO hose 23 hours per day -Consult physical and occupational therapy for ambulation. -Up to chair with assistance at least twice per day. -Follow up with your primary care physician to discuss testing for bone mineral density. Follow-up with Dr. Bragg at the office 2 weeks from the surgery date for a post operative evaluation. Call the office at [phone] to schedule appointment. Referrals: Tuyet Glynn CNP [Primary Care Provider] - 07/28/17 1:05 pm
--- NOTE | 2017-03-14 11:33 | Internal Med Progress Note ---
Date of Encounter: 03/14/17 Time of Encounter: 11:31 - Assessment and plan (1) Leukocytosis Current Visit: Yes Status: Acute Assessment and plan: Patient on prolonged steroid therapy, afebrile, no focus of infection Continue to monitor Qualifiers: Leukocytosis type: unspecified Qualified Code(s): D72.829 - Elevated white blood cell count, unspecified (2) Acute exacerbation of chronic obstructive airways disease Current Visit: Yes Status: Acute Assessment and plan: Continue prednisone, duonebs prn now Continue O2 supplement, goal is 85-90% (3) Acute and chronic respiratory failure ([id number]) Current Visit: Yes Status: Acute Assessment and plan: History of COPD with requirement of home oxygen of 3L. The patient had was extubated on 03/09 after her surgery of right trochanteric nail late on 03/08 secondary to right hip femoral neck fracture. She has been on high flow oxygenation since being extubated; refusing BiPap. CXR 03/11/17: Stable COPD with superimposed acute CHF and lung base consolidation CXR 03/09/17: CHF changes with increasing perihilar edema, developing bilateral effusions and bibasilar atelectasis Echo 03/07/17: LVEF 70%. Mild LV diastolic dysfunction. Severe pulm HTN - estimated RVSP > 70mmHg. CT angio 03/06/17: No PE or acute aortic disease. Interstitial thickening with small bilateral effusions and lower lobe atalectasis. She has opted to be kept comfortable for the rest of her days Palliative input appreciated She is DNR-CC Qualifiers: Respiratory failure complication: hypoxia and hypercapnia Qualified Code(s) : J96.21 - Acute and chronic respiratory failure with hypoxia; J96.22 - Acute and chronic respiratory failure with hypercapnia (4) Hip fracture Current Visit: Yes Status: Acute Qualifiers: Encounter type: initial encounter Fracture type: closed Laterality: right Qualified Code(s): S72.001A - Fracture of unspecified part of neck of right femur, initial encounter for closed fracture (5) COPD (chronic obstructive pulmonary disease) Current Visit: Yes Status: Acute Qualifiers: COPD type: emphysema Emphysema type: centrilobular Qualified Code(s): J43.2 - Centrilobular emphysema (6) Tobacco abuse Current Visit: Yes Status: Acute - Subjective Interval history: Seen and evaluated at bedside 81 M, chroncially ill-looking She was admitted for management of hip fracture, post-op she remained hypoxic and has been dependent on high flow O2 by NC She was managed in the ICU for acute on chronic respiratory failure with hypoxia and hypercapnea She is waiting rehab placement Palliative has been co-managing, input appreciated Patient comfortable and denies new complains at time of review - Constitutional Vitals: Temp Pulse Resp BP Pulse Ox 98.1 F 84 20 119/69 93 03/14/17 10:37 03/14/17 10:37 03/14/17 10:37 03/14/17 10:37 03/14/17 10:37 General appearance: Present: mild distress, A&O X 3, pleasant, underweight - Head Head exam: Present: atraumatic, normocephalic - Eye Eye exam: Present: PERRL, conjuntiva pink, sclera anicteric Pupils: Present: PERRL - Neck Neck exam general surgery: Present: supple, trachea midline. Absent: lymphadenopathy - Respiratory Respiratory exam: Present: CTAB. Absent: accessory muscle use, rales, rhonchi, wheezes - Cardiovascular Cardiovascular exam: Present: RRR, +S1, +S2. Absent: diastolic murmur, gallop, rubs, systolic murmur - GI/Abdominal GI/Abdominal exam: Present: normal bowel sounds, soft, no peritoneal signs. Absent: distended, tenderness - Extremities Exam Extremities exam: Present: warm, radial pulses palpable and symetrical. Absent : calf tenderness, cyanotic, pedal edema - Neurological Exam Neurological exam: Present: alert, CN II-XII intact, oriented X3, no focal deficits. Absent: pronater drift, facial droop, speech deficit - Skin Skin exam: Present: dry, intact Internal Medicine: Result - Labs CBC & Chem 7: 03/14/17 04:59 03/14/17 04:59 Labs: Short CBC 03/14/17 Range/Units 04:59 WBC 17.6 H (4.3-11.1) K/mcL Hgb 10.6 L (11.5-15.4) g/dL Hct 34.1 L (35.3-44.9) % Plt Count 359 (140-400) K/mcL Neutrophils # 15.8 H (1.6-8.9) K/mcL BMP 03/14/17 04:59 Sodium 140 Potassium 4.4 Chloride 96 L Carbon Dioxide 36 H BUN 24 H Creatinine 0.53 L Glucose 122 H Calcium 9.3 - ABG Interpretation ABG results: ABG ABG pH 7.32 pH Units (7.32-7.45) 03/08/17 21:28 ABG pCO2 77 mmHg (35-45) H* 03/08/17 21:28 ABG pO2 57 mmHg (85-104) L 03/08/17 21:28 ABG O2 Saturation 87 % (95-98) L 03/08/17 21:28 PT/INR, D-dimer PT 10.7 Seconds (9.4-12.1) 03/06/17 12:22 - VTE Documentation of Mechanical Device: Intermittent pneumatic compression device Consult Discharge Plan - Plan Additional Instructions: INTERMEDIATE DISCHARGE INSTRUCTIONS Dr. Bragg PROCEDURE PERFORMED Reduction and fixation of right hip. Incision care -Daily dressing changes to the right hip with dry gauze and either paper tape or medipore tape. -Avoid soaking wound in water (no hot tubs, bathtubs, swimming pools). -May shower after 2 weeks from surgery date. Carefully wash incision with soap and water. Gently pat it dry. Don't rub the incision, or apply creams or lotions. Sit on a shower stool when showering to keep from falling. Weight bearing status -Weightbearing as tolerated to the bilateral lower extremities. Medications -Pain medication per the discharging medical doctor -Enteric coated aspirin 325 mg by mouth twice per day for 28 days from the date of the surgery. -Resume 50,000 units of vitamin D2 daily and 1,200 mg of calcium supplementation per day. Other -Knee high RONALDO hose 23 hours per day -Consult physical and occupational therapy for ambulation. -Up to chair with assistance at least twice per day. -Follow up with your primary care physician to discuss testing for bone mineral density. Follow-up with Dr. Bragg at the office 2 weeks from the surgery date for a post operative evaluation. Call the office at [phone] to schedule appointment. Referrals: Tuyet Glynn CNP [Primary Care Provider] - 07/28/17 1:05 pm
[2017-03-15] MEDS: Ipratropium/Albuterol Neb 3 ML IH SCH ×7 (00:35→23:02)
[2017-03-15 06:06] LABS: Basophils % 0.2 %; Hematocrit 34.3 % (35.3-44.9); Hemoglobin 10.5 g/dL (11.5-15.4); Immature Granulocytes % 1.3 % (0-4); Lymphocytes # 0.7 K/mcL (0.6-4.6); Lymphocytes % 3.7 %; Mean Corpuscular HGB Conc 30.6 g/dL (31.6-35.5); Mean Corpuscular Hemoglobin 28.9 pg (28.0-33.3); Mean Corpuscular Volume 94.5 fL (83.0-100.0); Mean Platelet Volume 10.6 fL (9.4-12.4); Monocytes # 0.6 K/mcL (0.0-1.3); Monocytes % 3.6 %; Neutrophils # 16.1 K/mcL (1.6-8.9); Platelet Count 370 K/mcL (140-400); Red Blood Count 3.63 M/mcL (3.82-4.97); Segmented Neutrophils % 91.2 %
[2017-03-15] MEDS: predniSONE 20 MG TABLET PO SCH (07:46)
[2017-03-15] MEDS: Sennosides/Docusate Sodium TABLET PO SCH (07:46)
[2017-03-15] MEDS: Aspirin Enteric Coated 325 MG Tablet PO SCH ×2 (07:46→20:27)
[2017-03-15] MEDS: *HR* HYDROcodone/Acet 5/325 mg TABLET PO PRN ×2 (07:48→13:25)
[2017-03-15] MEDS: Budesonide/Formoterol 160/4.5 MDI IH SCH ×2 (08:12→20:18)
[2017-03-15] MEDS ORDERED: predniSONE 20 MG TABLET PO SCH (08:32)
--- NOTE | 2017-03-15 10:59 | Palliative Progress Note ---
Date of Encounter: 03/15/17 Time of Encounter: 10:45 - Assessment and plan (1) Right hip pain Current Visit: Yes Status: Acute Assessment and plan: Continues with [place] PRN. Utilized x3 last 24 hours. Monitor (2) Dyspnea Current Visit: Yes Status: Acute Assessment and plan: Stable - but still requiring high flow oxygen. Continues with bronchodilators/ steroids/supportive oxygen. Has Roxanol available but she has not desired to ask for this as of yet. Monitor. 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 At this time, plan is for rehab and appreciate social media developer help with placement. We discussed that after rehab, if she is still struggling with COPD, she would be eligible for hospice care at that time. Tammy stated she will be moving in with her mother and providing care, and was appreciative of the information. She is aware of her mother's desire for comfort care, and that she does not desire anything aggressive to be done. (4) COPD (chronic obstructive pulmonary disease) Current Visit: Yes Status: Acute Qualifiers: COPD type: emphysema Emphysema type: centrilobular Qualified Code(s): J43.2 - Centrilobular emphysema (5) Acute respiratory failure with hypoxia and hypercapnia Current Visit: Yes Status: Acute (6) Hip fracture Current Visit: Yes Status: Acute Qualifiers: Encounter type: initial encounter Fracture type: closed Laterality: right Qualified Code(s): S72.001A - Fracture of unspecified part of neck of right femur, initial encounter for closed fracture - Time Spent With Patient Total time spent is greater than 50% in coordination of care (as documented) at patient's floor/unit and/or counseling patient: 25 - 35 minutes - Subjective Interval history: Patient awake, alert, and pleasant. States slept well last pm. Breathing remains "about the same" and still short of breath with conversation. Remains on high flow oxygen. - Constitutional Vitals: Abnormal lab results WBC 17.7 K/mcL (4.3-11.1) H 03/15/17 05:55 RBC 3.63 M/mcL (3.82-4.97) L 04/26/17 05:55 Hgb 10.5 g/dL (11.5-15.4) L 03/15/17 05:55 Hct 34.3 % (35.3-44.9) L 03/15/17 05:55 MCHC 30.6 g/dL (31.6-35.5) L 03/15/17 05:55 Neutrophils # 16.1 K/mcL (1.6-8.9) H 03/15/17 05:55 Immature Plt Fraction 9.6 % (1.1-6.1) H 03/13/17 03:44 APTT 48.7 Seconds (26.0-36.0) H 03/07/17 18:09 ABG pCO2 77 mmHg (35-45) H* 03/08/17 21:28 ABG pO2 57 mmHg (85-104) L 03/08/17 21:28 ABG HCO3 39.7 mEQ/L (21-27) H 03/08/17 21:28 ABG Total CO2 42.1 mEq/L (20-26) H 03/08/17 21:28 ABG O2 Saturation 87 % (95-98) L 03/08/17 21:28 ABG Base Excess 10.7 mEq/L (-2.0 to 3.0) H 03/08/17 21:28 Chloride 96 mEq/L (98-109) L 03/14/17 04:59 Carbon Dioxide 36 mEq/L (19-29) H 03/14/17 04:59 BUN 24 mg/dL (7-20) H 03/14/17 04:59 Creatinine 0.53 mg/dL (0.57-1.11) L 03/14/17 04:59 BUN/Creatinine Ratio 45 (6-26) H 03/14/17 04:59 Glucose 122 mg/dL (70-99) H 03/14/17 04:59 POC Glucose 166 (58-89) H 03/13/17 20:50 Troponin I 0.38 ng/mL (0-0.03) H* 03/07/17 09:23 25-OH Vitamin D Total 11 ng/mL (30-80) L 03/09/17 03:26 General appearance: Present: no acute distress - Respiratory Respiratory exam: Present: decreased breath sounds, CTAB - Cardiovascular Cardiovascular exam: Present: +S1, +S2 - GI/Abdominal GI/Abdominal exam: Present: normal bowel sounds - Extremities Exam Extremities exam: Present: normal capillary refill, normal inspection - Neurological Exam Neurological exam: Present: alert, oriented X3, strengths equal and symetr throughout - Skin Skin exam: Present: dry, pallor, warm Palliative Quality Palliative Quality: Screen for Code Status: Yes, Screen for Goals of Care: Yes, Screen for Pain: Yes, If Pain Regimen Started, Initiate Bowel Regimen: Yes, Screen for Nausea/Vomitting: Yes Code Status: 03/13/17 10:49 DNR [Resuscitation Status: Active] [RES] Routine Comment: Resuscitation Status: DNR-Comfort Care - Labs CBC & Chem 7: 03/15/17 05:55 03/14/17 04:59 Labs: Laboratory Results - last 24 hr 03/15/17 05:55 WBC 17.7 H RBC 3.63 L Hgb 10.5 L Hct 34.3 L MCV 94.5 MCH 28.9 MCHC 30.6 L RDW 14.0 Plt Count 370 MPV 10.6 Immature Gran % 1.3 Seg Neutrophils % 91.2 Lymphocytes % 3.7 Monocytes % 3.6 Eosinophils % 0.0 Basophils % 0.2 Neutrophils # 16.1 H Lymphocytes # 0.7 Monocytes # 0.6 Eosinophils # 0.0 Basophils # 0.0 - ABG Interpretation ABG results: ABG ABG pH 7.32 pH Units (7.32-7.45) 03/08/17 21:28 ABG pCO2 77 mmHg (35-45) H* 03/08/17 21:28 ABG pO2 57 mmHg (85-104) L 03/08/17 21:28 ABG O2 Saturation 87 % (95-98) L 03/08/17 21:28 PT/INR, D-dimer PT 10.7 Seconds (9.4-12.1) 03/06/17 12:22 Consult Discharge Plan - Plan Additional Instructions: JAIL DISCHARGE INSTRUCTIONS Dr. Bragg PROCEDURE PERFORMED Reduction and fixation of right hip. Incision care -Daily dressing changes to the right hip with dry gauze and either paper tape or medipore tape. -Avoid soaking wound in water (no hot tubs, bathtubs, swimming pools). -May shower after 2 weeks from surgery date. Carefully wash incision with soap and water. Gently pat it dry. Don't rub the incision, or apply creams or lotions. Sit on a shower stool when showering to keep from falling. Weight bearing status -Weightbearing as tolerated to the bilateral lower extremities. Medications -Pain medication per the discharging medical doctor -Enteric coated aspirin 325 mg by mouth twice per day for 28 days from the date of the surgery. -Resume 50,000 units of vitamin D2 daily and 1,200 mg of calcium supplementation per day. Other -Knee high RONALDO hose 23 hours per day -Consult physical and occupational therapy for ambulation. -Up to chair with assistance at least twice per day. -Follow up with your primary care physician to discuss testing for bone mineral density. Follow-up with Dr. Bragg at the office 2 weeks from the surgery date for a post operative evaluation. Call the office at [phone] to schedule appointment. Referrals: Tuyet Glynn CNP [Primary Care Provider] - 07/28/17 1:05 pm
--- NOTE | 2017-03-15 11:59 | Internal Med Progress Note ---
Date of Encounter: 03/15/17 Time of Encounter: 11:59 - Assessment and plan (1) Leukocytosis Current Visit: Yes Status: Acute Assessment and plan: Patient on prolonged steroid therapy, afebrile, no focus of infection Taper prednisone rapidly Continue to monitor Qualifiers: Leukocytosis type: unspecified Qualified Code(s): D72.829 - Elevated white blood cell count, unspecified (2) Acute exacerbation of chronic obstructive airways disease Current Visit: Yes Status: Acute Assessment and plan: Continue prednisone, taper, , duonebs prn now Continue O2 supplement, goal is 85-90% (3) Acute and chronic respiratory failure ([id number]) Current Visit: Yes Status: Acute Assessment and plan: History of COPD with requirement of home oxygen of 3L. The patient had was extubated on 03/09 after her surgery of right trochanteric nail late on 03/08 secondary to right hip femoral neck fracture. She has been on high flow oxygenation since being extubated; refusing BiPap. CXR 03/11/17: Stable COPD with superimposed acute CHF and lung base consolidation CXR 03/09/17: CHF changes with increasing perihilar edema, developing bilateral effusions and bibasilar atelectasis Echo 03/07/17: LVEF 70%. Mild LV diastolic dysfunction. Severe pulm HTN - estimated RVSP > 70mmHg. CT angio 03/06/17: No PE or acute aortic disease. Interstitial thickening with small bilateral effusions and lower lobe atalectasis. She has opted to be kept comfortable for the rest of her days Palliative input appreciated She is DNR-CC Qualifiers: Respiratory failure complication: hypoxia and hypercapnia Qualified Code(s) : J96.21 - Acute and chronic respiratory failure with hypoxia; J96.22 - Acute and chronic respiratory failure with hypercapnia (4) Hip fracture Current Visit: Yes Status: Acute Assessment and plan: Post-op SNF/ECF when accepted Qualifiers: Encounter type: initial encounter Fracture type: closed Laterality: right Qualified Code(s): S72.001A - Fracture of unspecified part of neck of right femur, initial encounter for closed fracture (5) Tobacco abuse Current Visit: Yes Status: Chronic - Subjective Interval history: Seen and evaluated at bedside 81 M, chronically ill-looking She was admitted for management of hip fracture, post-op she remained hypoxic and has been dependent on high flow O2 by NC She was managed in the ICU for acute on chronic respiratory failure with hypoxia and hypercapnea She is waiting rehab placement Palliative has been co-managing, input appreciated Patient comfortable and denies new complains at time of review Awaiting SNF/ECF placement, patient and family has made their choice known to SW - Constitutional Vitals: Temp Pulse Resp BP Pulse Ox 97.8 F 72 16 145/73 100 03/15/17 06:53 03/15/17 06:53 03/15/17 10:58 03/15/17 06:53 03/15/17 10:58 General appearance: Present: A&O X 3, pleasant, no acute distress, underweight - Head Head exam: Present: atraumatic, normocephalic - Eye Eye exam: Present: PERRL, conjuntiva pink, sclera anicteric Pupils: Present: PERRL - Neck Neck exam general surgery: Present: supple, trachea midline. Absent: lymphadenopathy - Respiratory Respiratory exam: Present: CTAB. Absent: accessory muscle use, rales, rhonchi, wheezes - Cardiovascular Cardiovascular exam: Present: RRR, +S1, +S2. Absent: diastolic murmur, gallop, rubs, systolic murmur - GI/Abdominal GI/Abdominal exam: Present: normal bowel sounds, soft, no peritoneal signs. Absent: distended, tenderness - Extremities Exam Extremities exam: Present: warm, radial pulses palpable and symetrical. Absent : calf tenderness, cyanotic, pedal edema - Neurological Exam Neurological exam: Present: alert, CN II-XII intact, oriented X3, no focal deficits. Absent: pronater drift, facial droop, speech deficit - Skin Skin exam: Present: dry, intact Internal Medicine: Result - Labs CBC & Chem 7: 03/15/17 05:55 03/14/17 04:59 Labs: Short CBC 03/15/17 Range/Units 05:55 WBC 17.7 H (4.3-11.1) K/mcL Hgb 10.5 L (11.5-15.4) g/dL Hct 34.3 L (35.3-44.9) % Plt Count 370 (140-400) K/mcL Neutrophils # 16.1 H (1.6-8.9) K/mcL - ABG Interpretation ABG results: ABG ABG pH 7.32 pH Units (7.32-7.45) 03/08/17 21:28 ABG pCO2 77 mmHg (35-45) H* 03/08/17 21:28 ABG pO2 57 mmHg (85-104) L 03/08/17 21:28 ABG O2 Saturation 87 % (95-98) L 03/08/17 21:28 PT/INR, D-dimer PT 10.7 Seconds (9.4-12.1) 03/06/17 12:22 - VTE Documentation of Mechanical Device: Intermittent pneumatic compression device Consult Discharge Plan - Plan Additional Instructions: [facility] DISCHARGE INSTRUCTIONS Dr. Bragg PROCEDURE PERFORMED Reduction and fixation of right hip. Incision care -Daily dressing changes to the right hip with dry gauze and either paper tape or medipore tape. -Avoid soaking wound in water (no hot tubs, bathtubs, swimming pools). -May shower after 2 weeks from surgery date. Carefully wash incision with soap and water. Gently pat it dry. Don't rub the incision, or apply creams or lotions. Sit on a shower stool when showering to keep from falling. Weight bearing status -Weightbearing as tolerated to the bilateral lower extremities. Medications -Pain medication per the discharging medical doctor -Enteric coated aspirin 325 mg by mouth twice per day for 28 days from the date of the surgery. -Resume 50,000 units of vitamin D2 daily and 1,200 mg of calcium supplementation per day. Other -Knee high RONALDO hose 23 hours per day -Consult physical and occupational therapy for ambulation. -Up to chair with assistance at least twice per day. -Follow up with your primary care physician to discuss testing for bone mineral density. Follow-up with Dr. Bragg at the office 2 weeks from the surgery date for a post operative evaluation. Call the office at [phone] to schedule appointment. Referrals: Tuyet Glynn CNP [Primary Care Provider] - 07/28/17 1:05 pm
--- NOTE | 2017-03-15 13:56 | Orthopedics Progress Note ---
Date of Encounter: 03/15/17 Time of Encounter: 13:54 - Assessment and Plan (1) Hip fracture Current Visit: Yes Status: Acute Qualifiers: Encounter type: initial encounter Fracture type: closed Laterality: right Qualified Code(s): S72.001A - Fracture of unspecified part of neck of right femur, initial encounter for closed fracture Subjective Principal diagnosis: Right hip fx Interval history: S: Patient on floor recovering well. Minimal pain to the right hip. Palliative care on board. O: Afebrile VSS Right thigh wounds are clean and dry. Minimal pain with log roll of the hip. She can flex and extend her toes well, and they are sensate and well perfused. A: Post internal fixation of the right hip. Slow to mobilize with therapy, but sitting up in chair comfortably. P: Leukocytosis, per primary team from prior steroid use. PT/OT WBAT Up to chair at least BID Aspirin 325 PO BID, SCDs, Thigh High TEDs Vitamin D2 50,000 units q week Calcium 1200 mg PO Daily Daily dressing changes Orthopedically stable. Follow up with me in the office 2 weeks from surgery date. Objective Vital signs: Vital Signs Temp Pulse Resp BP Pulse Ox 03/15/17 12:25 98.2 F 85 16 156/83 98 03/15/17 10:58 16 100 03/15/17 08:11 16 100 03/15/17 07:52 97 03/15/17 06:53 97.8 F 72 18 145/73 100 03/15/17 05:13 97.9 F 90 16 165/82 96 03/15/17 02:02 97.8 F 75 15 139/77 95 03/14/17 21:11 97.7 F 95 17 136/66 87 03/14/17 20:43 18 98 03/14/17 17:34 18 96 03/14/17 15:04 98.6 F 79 18 151/73 95 Intake and Output 03/14/17 03/15/17 03/15/17 23:59 07:59 15:59 Intake Total 100 / 100 Output Total 100 / 100 150 / 150 Balance 0 / 0 -150 / -150 Intake: Oral 100 / 100 Output: Urine 100 / 100 150 / 150 Other: Meal Dinner Breakfast Percent of Meal Consumed 90% 50% - Labs CBC & BMP: 03/15/17 05:55 03/14/17 04:59 Labs: Abnormal lab results WBC 17.7 K/mcL (4.3-11.1) H 03/15/17 05:55 RBC 3.63 M/mcL (3.82-4.97) L 03/15/17 05:55 Hgb 10.5 g/dL (11.5-15.4) L 03/15/17 05:55 Hct 34.3 % (35.3-44.9) L 03/15/17 05:55 MCHC 30.6 g/dL (31.6-35.5) L 03/15/17 05:55 Neutrophils # 16.1 K/mcL (1.6-8.9) H 03/15/17 05:55 Immature Plt Fraction 9.6 % (1.1-6.1) H 03/13/17 03:44 APTT 48.7 Seconds (26.0-36.0) H 03/07/17 18:09 ABG pCO2 77 mmHg (35-45) H* 03/08/17 21:28 ABG pO2 57 mmHg (85-104) L 03/08/17 21:28 ABG HCO3 39.7 mEQ/L (21-27) H 03/08/17 21:28 ABG Total CO2 42.1 mEq/L (20-26) H 03/08/17 21:28 ABG O2 Saturation 87 % (95-98) L 03/08/17 21:28 ABG Base Excess 10.7 mEq/L (-2.0 to 3.0) H 03/08/17 21:28 Chloride 96 mEq/L (98-109) L 03/14/17 04:59 Carbon Dioxide 36 mEq/L (19-29) H 03/14/17 04:59 BUN 24 mg/dL (7-20) H 03/14/17 04:59 Creatinine 0.53 mg/dL (0.57-1.11) L 03/14/17 04:59 BUN/Creatinine Ratio 45 (6-26) H 03/14/17 04:59 Glucose 122 mg/dL (70-99) H 03/14/17 04:59 POC Glucose 166 (58-89) H 03/13/17 20:50 Troponin I 0.38 ng/mL (0-0.03) H* 03/07/17 09:23 25-OH Vitamin D Total 11 ng/mL (30-80) L 03/09/17 03:26 - VTE Documentation of Mechanical Device: Intermittent pneumatic compression device Consult Discharge Plan - Plan Additional Instructions: CUSTODIAL DISCHARGE INSTRUCTIONS Dr. Bragg PROCEDURE PERFORMED Reduction and fixation of right hip. Incision care -Daily dressing changes to the right hip with dry gauze and either paper tape or medipore tape. -Avoid soaking wound in water (no hot tubs, bathtubs, swimming pools). -May shower after 2 weeks from surgery date. Carefully wash incision with soap and water. Gently pat it dry. Don't rub the incision, or apply creams or lotions. Sit on a shower stool when showering to keep from falling. Weight bearing status -Weightbearing as tolerated to the bilateral lower extremities. Medications -Pain medication per the discharging medical doctor -Enteric coated aspirin 325 mg by mouth twice per day for 28 days from the date of the surgery. -Resume 50,000 units of vitamin D2 daily and 1,200 mg of calcium supplementation per day. Other -Knee high RONALDO hose 23 hours per day -Consult physical and occupational therapy for ambulation. -Up to chair with assistance at least twice per day. -Follow up with your primary care physician to discuss testing for bone mineral density. Follow-up with Dr. Bragg at the office 2 weeks from the surgery date for a post operative evaluation. Call the office at [phone] to schedule appointment. Referrals: Tuyet Glynn CNP [Primary Care Provider] - 07/28/17 1:05 pm
[2017-03-16] MEDS: Ipratropium/Albuterol Neb 3 ML IH SCH ×6 (03:05→23:41)
[2017-03-16 07:13] LABS: Basophils % 0.2 %; Eosinophils # 0.1 K/mcL (0.0-0.6); Eosinophils % 0.6 %; Hematocrit 32.2 % (35.3-44.9); Immature Granulocytes % 1.5 % (0-4); Lymphocytes # 1.9 K/mcL (0.6-4.6); Lymphocytes % 9.8 %; Mean Corpuscular HGB Conc 31.1 g/dL (31.6-35.5); Mean Corpuscular Hemoglobin 29.6 pg (28.0-33.3); Mean Corpuscular Volume 95.3 fL (83.0-100.0); Mean Platelet Volume 11.1 fL (9.4-12.4); Monocytes # 1.6 K/mcL (0.0-1.3); Neutrophils # 15.5 K/mcL (1.6-8.9); Platelet Count 392 K/mcL (140-400); Red Blood Count 3.38 M/mcL (3.82-4.97); Red Cell Distribution Width 14.1 % (11.5-14.5); Segmented Neutrophils % 79.9 %
[2017-03-16] MEDS: Budesonide/Formoterol 160/4.5 MDI IH SCH ×2 (08:37→19:53)
[2017-03-16] MEDS: Sennosides/Docusate Sodium TABLET PO SCH (09:08)
[2017-03-16] MEDS: *HR* HYDROcodone/Acet 5/325 mg TABLET PO PRN ×3 (09:08→19:37)
[2017-03-16] MEDS: Aspirin Enteric Coated 325 MG Tablet PO SCH ×2 (09:08→19:37)
[2017-03-16] MEDS: predniSONE 20 MG TABLET PO SCH (09:09)
--- NOTE | 2017-03-16 12:15 | Internal Med Progress Note ---
Date of Encounter: 03/16/17 Time of Encounter: 12:15 - Assessment and plan (1) Leukocytosis Current Visit: Yes Status: Acute Assessment and plan: Patient on prolonged steroid therapy, afebrile, no focus of infection Continue to Taper prednisone rapidly CXR today no new infiltrates Continue to monitor Qualifiers: Leukocytosis type: unspecified Qualified Code(s): D72.829 - Elevated white blood cell count, unspecified (2) Acute exacerbation of chronic obstructive airways disease Current Visit: Yes Status: Acute Assessment and plan: Continue prednisone, taper, , duonebs prn now Continue O2 supplement, goal is 85-90% (3) Acute and chronic respiratory failure ([id number]) Current Visit: Yes Status: Acute Assessment and plan: History of COPD with requirement of home oxygen of 3L. The patient had was extubated on 03/09 after her surgery of right trochanteric nail late on 03/08 secondary to right hip femoral neck fracture. She has been on high flow oxygenation since being extubated; refusing BiPap. CXR 03/11/17: Stable COPD with superimposed acute CHF and lung base consolidation CXR 03/09/17: CHF changes with increasing perihilar edema, developing bilateral effusions and bibasilar atelectasis Echo 03/07/17: LVEF 70%. Mild LV diastolic dysfunction. Severe pulm HTN - estimated RVSP > 70mmHg. CT angio 03/06/17: No PE or acute aortic disease. Interstitial thickening with small bilateral effusions and lower lobe atalectasis. She has opted to be kept comfortable for the rest of her days Palliative input appreciated She is DNR-CC Qualifiers: Respiratory failure complication: hypoxia and hypercapnia Qualified Code(s) : J96.21 - Acute and chronic respiratory failure with hypoxia; J96.22 - Acute and chronic respiratory failure with hypercapnia (4) Hip fracture Current Visit: Yes Status: Acute Assessment and plan: Post-op SNF/ECF when accepted Qualifiers: Encounter type: initial encounter Fracture type: closed Laterality: right Qualified Code(s): S72.001A - Fracture of unspecified part of neck of right femur, initial encounter for closed fracture (5) Tobacco abuse Current Visit: Yes Status: Chronic - Subjective Interval history: Seen and evaluated at bedside 81 M, chronically ill-looking She was admitted for management of hip fracture, post-op she remained hypoxic and has been dependent on high flow O2 by NC She was managed in the ICU for acute on chronic respiratory failure with hypoxia and hypercapnea She is waiting rehab placement Palliative has been co-managing, input appreciated Patient comfortable and denies new complains at time of review O2 requirement increased today patient denied worsening SOB, she is not having worsening cough Repeat CXR with stable LLL infiltrates and bilateral effusions with no progressive changes - Constitutional Vitals: Temp Pulse Resp BP Pulse Ox 97.6 F 82 18 130/67 90 03/16/17 11:18 03/16/17 11:18 03/16/17 11:18 03/16/17 11:18 03/16/17 11:18 General appearance: Present: A&O X 3, pleasant, no acute distress, underweight - Head Head exam: Present: atraumatic, normocephalic - Eye Eye exam: Present: PERRL, conjuntiva pink, sclera anicteric Pupils: Present: PERRL - Neck Neck exam general surgery: Present: supple, trachea midline. Absent: lymphadenopathy - Respiratory Respiratory exam: Present: CTAB. Absent: accessory muscle use, rales, rhonchi, wheezes - Cardiovascular Cardiovascular exam: Present: RRR, +S1, +S2. Absent: diastolic murmur, gallop, rubs, systolic murmur - GI/Abdominal GI/Abdominal exam: Present: normal bowel sounds, soft, no peritoneal signs. Absent: distended, tenderness - Extremities Exam Extremities exam: Present: warm, radial pulses palpable and symetrical. Absent : calf tenderness, cyanotic, pedal edema - Neurological Exam Neurological exam: Present: alert, CN II-XII intact, oriented X3, no focal deficits. Absent: pronater drift, facial droop, speech deficit - Skin Skin exam: Present: dry Internal Medicine: Result - Labs CBC & Chem 7: 03/16/17 06:12 03/14/17 04:59 Labs: Short CBC 03/16/17 Range/Units 06:12 WBC 19.4 H (4.3-11.1) K/mcL Hgb 10.0 L (11.5-15.4) g/dL Hct 32.2 L (35.3-44.9) % Plt Count 392 (140-400) K/mcL Neutrophils # 15.5 H (1.6-8.9) K/mcL - ABG Interpretation ABG results: ABG ABG pH 7.32 pH Units (7.32-7.45) 03/08/17 21:28 ABG pCO2 77 mmHg (35-45) H* 03/08/17 21:28 ABG pO2 57 mmHg (85-104) L 03/08/17 21:28 ABG O2 Saturation 87 % (95-98) L 03/08/17 21:28 PT/INR, D-dimer PT 10.7 Seconds (9.4-12.1) 03/06/17 12:22 - VTE Documentation of Mechanical Device: Intermittent pneumatic compression device Consult Discharge Plan - Plan Additional Instructions: SNF DISCHARGE INSTRUCTIONS Dr. Bragg PROCEDURE PERFORMED Reduction and fixation of right hip. Incision care -Daily dressing changes to the right hip with dry gauze and either paper tape or medipore tape. -Avoid soaking wound in water (no hot tubs, bathtubs, swimming pools). -May shower after 2 weeks from surgery date. Carefully wash incision with soap and water. Gently pat it dry. Don't rub the incision, or apply creams or lotions. Sit on a shower stool when showering to keep from falling. Weight bearing status -Weightbearing as tolerated to the bilateral lower extremities. Medications -Pain medication per the discharging medical doctor -Enteric coated aspirin 325 mg by mouth twice per day for 28 days from the date of the surgery. -Resume 50,000 units of vitamin D2 daily and 1,200 mg of calcium supplementation per day. Other -Knee high RONALDO hose 23 hours per day -Consult physical and occupational therapy for ambulation. -Up to chair with assistance at least twice per day. -Follow up with your primary care physician to discuss testing for bone mineral density. Follow-up with Dr. Bragg at the office 2 weeks from the surgery date for a post operative evaluation. Call the office at [phone] to schedule appointment. Referrals: Tuyet Glynn CNP [Primary Care Provider] - 07/28/17 1:05 pm
[2017-03-16] MEDS: *HR* LORazepam 1 MG TABLET PO SCH ×2 (12:40→19:37)
--- NOTE | 2017-03-16 13:59 | Palliative Progress Note ---
Date of Encounter: 03/16/17 Time of Encounter: 13:30 - Assessment and plan (1) Constipation Current Visit: Yes Status: Acute Assessment and plan: Add Miralax today - patient states she has used at home previously with success , also asking for warm prune juice - ordered from kitchen. (2) Right hip pain Current Visit: Yes Status: Acute Assessment and plan: Continue with [facility]. Utilized x last 24 hours. (3) Dyspnea Current Visit: Yes Status: Acute Qualifiers: Dyspnea type: unspecified Qualified Code(s): R06.00 - Dyspnea, unspecified (4) Counseling regarding advanced care planning and goals of care Current Visit: Yes Status: Acute Assessment and plan: Patient has been approved at [facility] for rehab. Anticipate d/c soon. 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 Patient states "feeling ok, but emotional today and crying a lot". States pain well controlled. Remains constipation despite Senokot and Biscodyl administration. - Constitutional Vitals: Abnormal lab results WBC 19.4 K/mcL (4.3-11.1) H 03/16/17 06:12 RBC 3.38 M/mcL (3.82-4.97) L 03/16/17 06:12 Hgb 10.0 g/dL (11.5-15.4) L 03/16/17 06:12 Hct 32.2 % (35.3-44.9) L 03/16/17 06:12 MCHC 31.1 g/dL (31.6-35.5) L 03/16/17 06:12 Neutrophils # 15.5 K/mcL (1.6-8.9) H 03/16/17 06:12 Monocytes # 1.6 K/mcL (0.0-1.3) H 03/16/17 06:12 Immature Plt Fraction 9.6 % (1.1-6.1) H 03/13/17 03:44 APTT 48.7 Seconds (26.0-36.0) H 03/07/17 18:09 ABG pCO2 77 mmHg (35-45) H* 03/08/17 21:28 ABG pO2 57 mmHg (85-104) L 03/08/17 21:28 ABG HCO3 39.7 mEQ/L (21-27) H 03/08/17 21:28 ABG Total CO2 42.1 mEq/L (20-26) H 03/08/17 21:28 ABG O2 Saturation 87 % (95-98) L 03/08/17 21:28 ABG Base Excess 10.7 mEq/L (-2.0 to 3.0) H 03/08/17 21:28 Chloride 96 mEq/L (98-109) L 03/14/17 04:59 Carbon Dioxide 36 mEq/L (19-29) H 03/14/17 04:59 BUN 24 mg/dL (7-20) H 03/14/17 04:59 Creatinine 0.53 mg/dL (0.57-1.11) L 03/14/17 04:59 BUN/Creatinine Ratio 45 (6-26) H 03/14/17 04:59 Glucose 122 mg/dL (70-99) H 03/14/17 04:59 POC Glucose 166 (58-89) H 03/13/17 20:50 Troponin I 0.38 ng/mL (0-0.03) H* 03/07/17 09:23 25-OH Vitamin D Total 11 ng/mL (30-80) L 03/09/17 03:26 General appearance: Present: no acute distress - Respiratory Respiratory exam: Present: decreased breath sounds, CTAB - Cardiovascular Cardiovascular exam: Present: +S1, +S2 - GI/Abdominal GI/Abdominal exam: Present: normal bowel sounds, soft - Neurological Exam Neurological exam: Present: alert, oriented X3, strengths equal and symetr throughout - Psychiatric Psychiatric exam: Present: anxious - Skin Skin exam: Present: dry, pallor, warm Palliative Quality Palliative Quality: Screen for Code Status: Yes, Screen for Goals of Care: Yes, Screen for Pain: Yes, If Pain Regimen Started, Initiate Bowel Regimen: Yes, Screen for Nausea/Vomitting: Yes Code Status: 03/13/17 10:49 DNR [Resuscitation Status: Active] [RES] Routine Comment: Resuscitation Status: DNR-Comfort Care - Labs CBC & Chem 7: 03/16/17 06:12 03/14/17 04:59 Labs: Laboratory Results - last 24 hr 03/16/17 06:12 WBC 19.4 H RBC 3.38 L Hgb 10.0 L Hct 32.2 L MCV 95.3 MCH 29.6 MCHC 31.1 L RDW 14.1 Plt Count 392 MPV 11.1 Immature Gran % 1.5 Seg Neutrophils % 79.9 Lymphocytes % 9.8 Monocytes % 8.0 Eosinophils % 0.6 Basophils % 0.2 Neutrophils # 15.5 H Lymphocytes # 1.9 Monocytes # 1.6 H Eosinophils # 0.1 Basophils # 0.0 - ABG Interpretation ABG results: ABG ABG pH 7.32 pH Units (7.32-7.45) 03/08/17 21:28 ABG pCO2 77 mmHg (35-45) H* 03/08/17 21:28 ABG pO2 57 mmHg (85-104) L 03/08/17 21:28 ABG O2 Saturation 87 % (95-98) L 03/08/17 21:28 PT/INR, D-dimer PT 10.7 Seconds (9.4-12.1) 03/06/17 12:22 Consult Discharge Plan - Plan Additional Instructions: LONG-TERM DISCHARGE INSTRUCTIONS Dr. Bragg PROCEDURE PERFORMED Reduction and fixation of right hip. Incision care -Daily dressing changes to the right hip with dry gauze and either paper tape or medipore tape. -Avoid soaking wound in water (no hot tubs, bathtubs, swimming pools). -May shower after 2 weeks from surgery date. Carefully wash incision with soap and water. Gently pat it dry. Don't rub the incision, or apply creams or lotions. Sit on a shower stool when showering to keep from falling. Weight bearing status -Weightbearing as tolerated to the bilateral lower extremities. Medications -Pain medication per the discharging medical doctor -Enteric coated aspirin 325 mg by mouth twice per day for 28 days from the date of the surgery. -Resume 50,000 units of vitamin D2 daily and 1,200 mg of calcium supplementation per day. Other -Knee high RONALDO hose 23 hours per day -Consult physical and occupational therapy for ambulation. -Up to chair with assistance at least twice per day. -Follow up with your primary care physician to discuss testing for bone mineral density. Follow-up with Dr. Bragg at the office 2 weeks from the surgery date for a post operative evaluation. Call the office at [phone] to schedule appointment. Referrals: Tuyet Glynn CNP [Primary Care Provider] - 07/28/17 1:05 pm
--- NOTE | 2017-03-16 17:07 | Orthopedics Progress Note ---
Date of Encounter: 03/16/17 Time of Encounter: 17:06 - Assessment and Plan (1) Hip fracture Current Visit: Yes Status: Acute Qualifiers: Encounter type: initial encounter Fracture type: closed Laterality: right Qualified Code(s): S72.001A - Fracture of unspecified part of neck of right femur, initial encounter for closed fracture Subjective Principal diagnosis: Right hip fx Interval history: S: No complaints; Pain well controlled. Has been up with therapy multiple times. O: Afebrile VSS Right thigh wounds are clean and dry. Minimal pain with log roll of the hip. She can flex and extend her toes well, and they are sensate and well perfused. A: Post internal fixation of the right hip. Doing well P: PT/OT WBAT Aspirin 325 PO BID, SCDs, Thigh High TEDs Vitamin D2 50,000 units q week Calcium 1200 mg PO Daily Daily dressing changes Orthopedically stable. Follow up with me in the office 2 weeks from surgery date. Objective Vital signs: Vital Signs Temp Pulse Resp BP Pulse Ox 03/16/17 16:58 16 90 03/16/17 16:31 98.7 F 76 16 97/60 90 03/16/17 11:50 12 85 03/16/17 11:18 97.6 F 82 18 130/67 90 03/16/17 09:15 93 03/16/17 08:34 18 129/72 90 03/16/17 07:09 98.5 F 74 18 129/72 95 03/16/17 04:25 97.9 F 72 15 152/75 98 03/16/17 00:16 98.4 F 86 16 138/69 98 03/15/17 20:18 18 100 03/15/17 19:49 98.7 F 88 17 141/69 99 Intake and Output 03/16/17 03/16/17 03/16/17 07:59 15:59 23:59 Intake Total 100 / 100 Balance 100 / 100 Intake: Oral 100 / 100 Other: Meal Lunch Percent of Meal Consumed 25% Stool Size Moderate Stool Consistency soft formed Stool Characteristics Normal for Patient Stool Color Brown # Voids 1 - Labs CBC & BMP: 03/16/17 06:12 03/14/17 04:59 Labs: Abnormal lab results WBC 19.4 K/mcL (4.3-11.1) H 03/16/17 06:12 RBC 3.38 M/mcL (3.82-4.97) L 03/16/17 06:12 Hgb 10.0 g/dL (11.5-15.4) L 03/16/17 06:12 Hct 32.2 % (35.3-44.9) L 03/16/17 06:12 MCHC 31.1 g/dL (31.6-35.5) L 03/16/17 06:12 Neutrophils # 15.5 K/mcL (1.6-8.9) H 03/16/17 06:12 Monocytes # 1.6 K/mcL (0.0-1.3) H 03/16/17 06:12 Immature Plt Fraction 9.6 % (1.1-6.1) H 03/13/17 03:44 APTT 48.7 Seconds (26.0-36.0) H 03/07/17 18:09 ABG pCO2 77 mmHg (35-45) H* 03/08/17 21:28 ABG pO2 57 mmHg (85-104) L 03/08/17 21:28 ABG HCO3 39.7 mEQ/L (21-27) H 03/08/17 21:28 ABG Total CO2 42.1 mEq/L (20-26) H 03/08/17 21:28 ABG O2 Saturation 87 % (95-98) L 03/08/17 21:28 ABG Base Excess 10.7 mEq/L (-2.0 to 3.0) H 03/08/17 21:28 Chloride 96 mEq/L (98-109) L 03/14/17 04:59 Carbon Dioxide 36 mEq/L (19-29) H 03/14/17 04:59 BUN 24 mg/dL (7-20) H 03/14/17 04:59 Creatinine 0.53 mg/dL (0.57-1.11) L 03/14/17 04:59 BUN/Creatinine Ratio 45 (6-26) H 03/14/17 04:59 Glucose 122 mg/dL (70-99) H 03/14/17 04:59 POC Glucose 166 (58-89) H 03/13/17 20:50 Troponin I 0.38 ng/mL (0-0.03) H* 03/07/17 09:23 25-OH Vitamin D Total 11 ng/mL (30-80) L 03/09/17 03:26 - VTE Documentation of Mechanical Device: Intermittent pneumatic compression device Consult Discharge Plan - Plan Additional Instructions: JAIL DISCHARGE INSTRUCTIONS Dr. Bragg PROCEDURE PERFORMED Reduction and fixation of right hip. Incision care -Daily dressing changes to the right hip with dry gauze and either paper tape or medipore tape. -Avoid soaking wound in water (no hot tubs, bathtubs, swimming pools). -May shower after 2 weeks from surgery date. Carefully wash incision with soap and water. Gently pat it dry. Don't rub the incision, or apply creams or lotions. Sit on a shower stool when showering to keep from falling. Weight bearing status -Weightbearing as tolerated to the bilateral lower extremities. Medications -Pain medication per the discharging medical doctor -Enteric coated aspirin 325 mg by mouth twice per day for 28 days from the date of the surgery. -Resume 50,000 units of vitamin D2 daily and 1,200 mg of calcium supplementation per day. Other -Knee high RONALDO hose 23 hours per day -Consult physical and occupational therapy for ambulation. -Up to chair with assistance at least twice per day. -Follow up with your primary care physician to discuss testing for bone mineral density. Follow-up with Dr. Bragg at the office 2 weeks from the surgery date for a post operative evaluation. Call the office at [phone] to schedule appointment. Referrals: Tuyet Glynn CNP [Primary Care Provider] - 07/28/17 1:05 pm
[2017-03-17] MEDS: *HR* HYDROcodone/Acet 5/325 mg TABLET PO PRN ×4 (00:40→15:03)
[2017-03-17] MEDS: Ipratropium/Albuterol Neb 3 ML IH SCH ×4 (03:41→16:36)
[2017-03-17] MEDS: Budesonide/Formoterol 160/4.5 MDI IH SCH (07:50)
[2017-03-17] MEDS: *HR* LORazepam 1 MG TABLET PO SCH (08:59)
[2017-03-17] MEDS: predniSONE 20 MG TABLET PO SCH (09:00)
[2017-03-17] MEDS: Sennosides/Docusate Sodium TABLET PO SCH (09:00)
[2017-03-17] MEDS: Aspirin Enteric Coated 325 MG Tablet PO SCH (09:00)
[2017-03-17 12:24] VITALS: BP 117/56
--- NOTE | 2017-03-17 14:12 | Discharge Summary ---
Date of Encounter: 03/17/17 Time of Encounter: 14:06 - Discharge Diagnosis (1) Acute exacerbation of chronic obstructive airways disease Priority: Secondary Status: Acute (2) Hypoxia Priority: Secondary Status: Acute (3) Acute and chronic respiratory failure ([id number]) Priority: Secondary Status: Acute Qualifiers: Respiratory failure complication: hypoxia and hypercapnia Qualified Code(s) : J96.21 - Acute and chronic respiratory failure with hypoxia; J96.22 - Acute and chronic respiratory failure with hypercapnia (4) DVT prophylaxis Priority: Secondary Status: Acute (5) Tobacco abuse counseling Priority: Secondary Status: Acute (6) Hip fracture Priority: Primary Status: Acute Qualifiers: Encounter type: initial encounter Fracture type: closed Laterality: right Qualified Code(s): S72.001A - Fracture of unspecified part of neck of right femur, initial encounter for closed fracture (7) Tobacco abuse Priority: Secondary Status: Chronic (8) Elevated troponin Priority: Secondary Status: Acute - Discharge Medications Prescriptions: HYDROcodone/Acet 5/325 mg [[place] 5-325 mg] 1 tab PO Q4HR PRN #20 tablet PRN Reason: Moderate to Severe Pain (4-10) Morphine Oral CONC [Roxanol] 2.5 mg PO Q4HR PRN #10 oral.syg PRN Reason: shortness of breath/air hunger LORazepam [Ativan] 1 mg PO BID PRN #30 tablet PRN Reason: Anxiety Home Medications: Levalbuterol [Xopenex] 4 puff IH Q4H PRN 07/28/15 [History] Budesonide/Formoterol 160/4.5 [Symbicort] 2 puff IH BIDR #1 hfa.aer.ad 07/31/15 [Rx] Lidocaine Patch [Lidoderm 5% patch] 1 each TP DAILY 03/06/17 [History] Omeprazole [PriLOSEC] 20 mg PO DAILY 03/06/17 [History] Bisacodyl [Dulcolax] 10 mg PO HS PRN #0 tablet 03/17/17 [Rx] Calcium Carbonate [Tums] 1,000 mg PO DAILY tab.chew 03/17/17 [Rx] Ergocalciferol (VITAMIN D2) [Drisdol (50,000 Unit)] 50,000 unit PO QWEEK capsule 03/17/17 [Rx] HYDROcodone/Acet 5/325 mg [[place] 5-325 mg] 1 tab PO Q4HR PRN #20 tablet [Rx] Ipratropium/Albuterol Neb [Duoneb] 3 ml IH Q6HR inhsol 03/17/17 [Rx] LORazepam [Ativan] 1 mg PO BID PRN #30 tablet 03/17/17 [Rx] Morphine Oral CONC [Roxanol] 2.5 mg PO Q4HR PRN #10 oral.syg 03/17/17 [Rx] PredniSONE 10 mg PO DAILY tablet 03/17/17 [Rx] Sennosides/Docusate Sodium [Senna Plus] 1 each PO DAILY tablet 03/17/17 [Rx] Allergies/Adverse Reactions: Allergies Penicillins Adverse Reaction (Verified 07/28/15 10:51) Hives Date of admission: 03/07/17 08:16 Primary care physician: Tuyet Glynn CNP Consults: 03/08/17 18:34 Consult to Occupational Therapy [CONS] Routine Comment: Evaluate, develop and implement POC Consult to Orthopedic Navigator [CONS] [CONS] Routine Consult to Physical Therapy [CONS] Routine Comment: Evaluate, develop and implement POC Consult to Records Specialist [CONS] Routine Reason for SW Consult: post -op hip fracture RT Post Op Consult [CONS] Routine - Patient Status Disposition: Transfer SNF Condition: Good Functional capacity at discharge: uses cane/walker Overall status at discharge: patient is not back to baseline - Discharge Instructions Follow Up With: Tuyet Glynn CNP [Primary Care Provider] - 07/28/17 1:05 pm Additional Instructions: ASSISTED DISCHARGE INSTRUCTIONS Dr. Bragg PROCEDURE PERFORMED Reduction and fixation of right hip. Incision care -Daily dressing changes to the right hip with dry gauze and either paper tape or medipore tape. -Avoid soaking wound in water (no hot tubs, bathtubs, swimming pools). -May shower after 2 weeks from surgery date. Carefully wash incision with soap and water. Gently pat it dry. Don't rub the incision, or apply creams or lotions. Sit on a shower stool when showering to keep from falling. Weight bearing status -Weightbearing as tolerated to the bilateral lower extremities. Medications -Pain medication per the discharging medical doctor -Enteric coated aspirin 325 mg by mouth twice per day for 28 days from the date of the surgery. -Resume 50,000 units of vitamin D2 daily and 1,200 mg of calcium supplementation per day. Other -Knee high RONALDO hose 23 hours per day -Consult physical and occupational therapy for ambulation. -Up to chair with assistance at least twice per day. -Follow up with your primary care physician to discuss testing for bone mineral density. Follow-up with Dr. Bragg at the office 2 weeks from the surgery date for a post operative evaluation. Call the office at [phone] to schedule appointment. Medical discharge instructions: Continue prednisone, can decrease to 5mg on 03/24/17. Continue stool softener, hold if you have loose stools. ASA 325mg bid for DVT prophylaxis for at least 30 days. - Diet and Activity Activity: as per physical therapy Diet: low fat, low cholesterol, low salt diet Hospital course: Hospital presentation: Ms. Long is a 81 year old female with past medical history COPD on 3 L of oxygen and current smoker presented to the ED after a fall and landed on Right hip while holding the phone from hanging up on a retreader. immediately called EMS and brought to ER. Since fall pt has been unable to move her R LE secondary to severe pain with any movement of leg. Pt admits to baseline SOB from COPD and is on 3L O2 24/ at home. denies LOC, syncope, lightheaded,dizziness or any symptoms prior to or after fall. Denies CP , numbness/tingling. she was noted to be sating at high 70s on presentation which improved with oxygen. She was given IV Dilaudid with morphine at ED,it was noted that she was unresponsive and had to product assurance engineer narcan to bring her back, currently she is alert and awake and talking, answering appropriately but appears in mild respiratory distress, sating at 90% on 5-6 l of o2. Hospital course: She was diagnosed with acute R femoral neck fracture. Was admitted to the medical service. Orthopedics recommended operative repair. She was evaluated by cardiology and pulmonary and cleared for surgery. Had troponin elevation which was attributed to trauma. Had ORIF of R hip on day 2 - 03/08/17 which she tolerated well. She returned to ICU intubated and was successfully extubated the next morning. She developed respiratory failure due to COPD and fluid overload. She was treated with BiPAP. She was titrated off to high flow oxygen NC. She was given one dose of Lasix. Palliative was consulted. She was transferred out of ICU on day 7 of hospitalization. She was transitioned to prednisone and tolerated weaning of O2. She started PT. Today she says her shortness of breath is back to her baseline. Denies pain at rest. 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 She was advised to stop smoking. She will be discharged to subacute rehab. Please refer to consultation, operative and progress notes for further detail. - Time Spent with Patient Total time spent providing and/or coordinating discharge services: Greater than 30 minutes (I've spent 50 minutes coordinating this discharge) - Constitutional Vitals: Temp Pulse Resp BP Pulse Ox 98.2 F 73 16 117/56 96 03/17/17 10:03/17/17 10:03/17/17 11:53 03/17/17 10:03/17/17 11:53 General appearance: Present: A&O X 3, pleasant, no acute distress, underweight - Respiratory Respiratory exam: Present: CTAB. Absent: accessory muscle use, rales, rhonchi, wheezes - Cardiovascular Cardiovascular exam: Present: RRR, +S1, +S2. Absent: diastolic murmur, gallop, rubs, systolic murmur - GI/Abdominal GI/Abdominal exam: Present: normal bowel sounds, soft, no peritoneal signs. Absent: distended, tenderness - VTE Documentation of Mechanical Device: Intermittent pneumatic compression device
--- NOTE | 2017-03-17 14:38 | Physician Discharge Referral ---
ExtendedCare Referral Info Provider in Charge after Transfer: PCP Institutional Level of Care: Skilled - Diagnosis (1) Acute exacerbation of chronic obstructive airways disease Status: Acute (2) Hypoxia Status: Acute (3) Acute and chronic respiratory failure ([id number]) Status: Acute (4) DVT prophylaxis Status: Acute (5) Tobacco abuse counseling Status: Acute (6) Hip fracture Status: Acute (7) Tobacco abuse Status: Chronic (8) Elevated troponin Status: Acute - Transfer Medications Prescriptions: HYDROcodone/Acet 5/325 mg [[place] 5-325 mg] 1 tab PO Q4HR PRN #20 tablet PRN Reason: Moderate to Severe Pain (4-10) Morphine Oral CONC [Roxanol] 2.5 mg PO Q4HR PRN #10 oral.syg PRN Reason: shortness of breath/air hunger LORazepam [Ativan] 1 mg PO BID PRN #30 tablet PRN Reason: Anxiety Home Medications: Levalbuterol [Xopenex] 4 puff IH Q4H PRN 07/28/15 [History] Budesonide/Formoterol 160/4.5 [Symbicort] 2 puff IH BIDR #1 hfa.aer.ad 07/31/15 [Rx] Lidocaine Patch [Lidoderm 5% patch] 1 each TP DAILY 03/06/17 [History] Omeprazole [PriLOSEC] 20 mg PO DAILY 03/06/17 [History] Bisacodyl [Dulcolax] 10 mg PO HS PRN #0 tablet 03/17/17 [Rx] Calcium Carbonate [Tums] 1,000 mg PO DAILY tab.chew 03/17/17 [Rx] Ergocalciferol (VITAMIN D2) [Drisdol (50,000 Unit)] 50,000 unit PO QWEEK capsule 03/17/17 [Rx] HYDROcodone/Acet 5/325 mg [[place] 5-325 mg] 1 tab PO Q4HR PRN #20 tablet [Rx] Ipratropium/Albuterol Neb [Duoneb] 3 ml IH Q6HR inhsol 03/17/17 [Rx] LORazepam [Ativan] 1 mg PO BID PRN #30 tablet 03/17/17 [Rx] Morphine Oral CONC [Roxanol] 2.5 mg PO Q4HR PRN #10 oral.syg 03/17/17 [Rx] PredniSONE 10 mg PO DAILY tablet 03/17/17 [Rx] Sennosides/Docusate Sodium [Senna Plus] 1 each PO DAILY tablet 03/17/17 [Rx] Allergies/Adverse Reactions: Allergies Penicillins Adverse Reaction (Verified 07/28/15 10:51) Hives - Respiratory Orders Oxygen / L per min (6 lpm by regular NC) Smoking Cessation: Smoking cessation has been advised. For more information, call the [place] Tobacco Quit Line at 4-810-YLGB-NOW. - Ancillary Orders May use pressure relief devices daily prn - Advance Directives Living Will: Yes Power of Search Coordinator: Yes Code Status: DNR-Comfort Care - Mobility Orders Other - Rehabiliation Orders Rehab Potential: Fair Rehab Orders: Evaluation for Physical Therapy, Evaluation for Occupational Therapy - Treatments Skin tear care topically daily PRN per policy - Diet Orders No Added Salt (OANH), Cardiac CERTIFICATION: I certify that the transfer of the above named patient to an Extended Care Facility is necessary for the continuing treatment of the diagnosis listed. The above information is true and accurate reflection of patient's current condition. Confidential - Redisclosure prohibited without a patient's written consent.
== END 2017-03-17 17:20 | DRG 480 ==
LOC: EMEROO 11:00 → ICNU 11:00 → SUATTDRO 03-07 08:16 → 3NENU 03-13 22:55
PROVIDERS: ADMIT Internal Medicine; ATTEND Internal Medicine